=== PATIENT | male | born 1970 | race Caucasian/White ===

== ENCOUNTER 2018-08-07 09:54 | Inpatient (IN) ==
[2018-08-07] MEDS ORDERED: Bisacodyl 10 MG Supp RECTAL PRN (16:19)
[2018-08-07] MEDS ORDERED: Acetaminophen 325 MG Tablet PO PRN (16:19)
[2018-08-07] MEDS ORDERED: Sodium Phosphate Inj 30 MMOL in Sodium Chlor 0.9% Inj 250 ML IV.SIG PRN (16:32)
[2018-08-07] MEDS ORDERED: Magnesium Oxide 400 MG Tablet PO PRN (16:32)
[2018-08-07] MEDS ORDERED: Potassium Phosphate 500 MG Soluble Tablet PO PRN ×2 (16:32)
[2018-08-07] MEDS ORDERED: Potassium Chlor 40 mEq Premix 40 MEQ/100 ML PIGGYBACK IV.SIG PRN ×2 (16:32)
[2018-08-07] MEDS ORDERED: Potassium Phosphate Inj 30 MMOL in Sodium Chlor 0.9% Inj 250 ML IV.SIG PRN (16:32)
[2018-08-07] MEDS ORDERED: Magnesium Sulfate Inj 2 GM in Sodium Chlor 0.9% Inj 96 ML IV.SIG PRN (16:32)
[2018-08-07] MEDS ORDERED: Magnesium Sulfate Inj 4 GM in Sodium Chlor 0.9% Inj 92 ML IV.SIG PRN (16:32)
[2018-08-07 16:47] LABS: ABG Base Excess -4.4 mmol/L (-2-2); ABG PCO2 37 mmHg (38-42); ABG PO2 82 mmHG (61-120)
--- NOTE | 2018-08-07 17:26 | P.CONCC ---
History of Present Illness Service: ICU Consult date: 08/07/18 Requesting Physician: Jose David Green Reason for Consult: Hypertensive Urgency Primary Care Provider: No Primary Care Physician Chief Complaint: Nausea and Vomiting/ Blurry vision History of Present Illness: This is a 48-year-old male that presented to the [place] emergency center via EMS this morning with complaints of having diarrhea approximately 1 week ago. He woke up this morning with complaints of blurry vision and nausea and vomiting. Patient upon presentation stated that the onset was 4 hours prior to arrival which point he was diaphoretic with a systolic blood pressure in the 200s. a nicardipine infusion was initiated in the ED. The patient provided a history of being diagnosed a diabetic and previously on metformin but stopped 3 or 4 years ago stating the diabetes went away imaging studies were attempted to be performed the brain and abdomen however the patient refused. Per history from emergency room physician the patient has a history of noncompliance, and poorly controlled diabetes mellitus. laboratory studies were obtained showing a slight leukocytosis with a WBC count of 11.2 patient was empirically given vancomycin and Zosyn. Critical care medicine was consulted, and the patient was transferred to [facility]. Upon presentation the patient's blood pressure was noted to be 160/102 the patient was noted to be lethargic initially refusing to have imaging studies done secondary to claustrophobia but subsequently agreeing to stat imaging studies. Review of Systems All other systems reviewed negative except as stated in HPI PMFSH - History History Provided By: Patient - Medical History Medical History: Medical History (Last Reviewed 08/07/18 @ 17:08 by Yumiko Downey MD) Patient denies medical problems - Surgical History Surgical History: Surgical History (Last Updated 08/07/18 @ 17:08 by Yumiko Downey MD) No history of previous surgery (Acute) - Social History I have reviewed the patient's Social History: Yes - Tobacco History Second Hand Smoke Exposure: No Tobacco Use In Past 30 Days: No Smoking Status: Never smoker - Alcohol History How Often Do You Have a Drink Containing Alcohol: Never - Substance Use History Substance History: No History of Abuse - Travel History History of Recent Travel: No Recent Travel in the [facility] Within the Last 8 Weeks: No Medications and Allergies Active Medications: Active Medications Acetaminophen (Tylenol) 650 mg PO Q6H PRN PRN Reason: PAIN 1-10 AND/OR FEVER >101F Al Hydroxide/Mg Hydroxide (Milk Of Shruti French) 30 ml PO Q12H PRN PRN Reason: Mild Constipation Albuterol (Duoneb Neb (Prn)) 1 ampul NEB Q2HR NEB PRN PRN Reason: WHEEZING Bisacodyl (Dulcolax Supp) 10 mg RECTAL DAILY PRN PRN Reason: SEVERE CONSITIPATION Chlorhexidine Gluconate (Chlorhexidine 2% Cloth) 3 pack TOPICAL DAILY@0400 FABIOLA Stop: 08/13/18 03:59 Chlorhexidine Gluconate (Chlorhexidine 2% Cloth) 3 pack TOPICAL DAILY@0400 PRN PRN Reason: Extra cloth needed Stop: 08/13/18 03:59 Enoxaparin Sodium (Lovenox Inj) 30 mg SQ Q24H FABIOLA Famotidine (Pepcid Pf Inj) 20 mg IV.PUSH Q12HR FABIOLA Magnesium Sulfate 4 gm/ Sodium (Chloride) 100 mls @ 50 mls/hr IV.SIG UNSCH PRN PRN Reason: For Magnesium 0.9 - 1.1 mg/dL Magnesium Sulfate 2 gm/ Sodium (Chloride) 100 mls @ 50 mls/hr IV.SIG UNSCH PRN PRN Reason: For Magnesium 1.2 - 1.6 mg/dL Potassium Chloride (Kcl 40 Meq Premix Inj) 40 meq in 100 mls @ 25 mls/hr IV.SIG Q2H PRN PRN Reason: For Potassium 2.8 - 3.2 mEq/L Potassium Chloride (Kcl 20 Meq Premix Inj) 20 meq in 100 mls @ 50 mls/hr IV.SIG Q2H PRN PRN Reason: For Potassium 3.3 - 3.5 mEq/L Potassium Chloride (Kcl 40 Meq Premix Inj) 40 meq in 100 mls @ 25 mls/hr IV.SIG UNSCH PRN PRN Reason: For Potassium 3.3 - 3.5 mEq/L Potassium Chloride (Kcl 20 Meq Premix Inj) 20 meq in 100 mls @ 50 mls/hr IV.SIG Q2H PRN PRN Reason: For Potassium 2.8 - 3.2 mEq/L Potassium Phosphate 30 mmol/ (Sodium Chloride) 260 mls @ 42 mls/hr IV.SIG UNSCH PRN PRN Reason: SEE LABEL COMMENTS Sodium Phosphate 30 mmol/ (Sodium Chloride) 260 mls @ 42 mls/hr IV.SIG UNSCH PRN PRN Reason: For Phosphorus < 2.5 mg/dL Nicardipine HCl 25 mg/ Sodium (Chloride) 250 mls @ 50 mls/hr IV.CONT TITRATE FABIOLA; Protocol Lactulose (Lactulose Liq) 30 ml PO DAILY PRN PRN Reason: SEVERE CONSITIPATION Magnesium Oxide (Mag-Ox) 800 mg PO UNSCH PRN PRN Reason: For Magnesium 1.2 - 1.6 mg/dL Ondansetron HCl (Zofran Inj) 4 mg IV.PUSH Q6H PRN PRN Reason: NAUSEA OR VOMITING Potassium Bicarb/Potassium Chloride (K-Lyte Cl Eff) 50 meq PO UNSCH PRN PRN Reason: For Potassium 3.3 - 3.5 mEq/L Potassium Phosphate (K-Phos Original) 2,000 mg PO UNSCH PRN PRN Reason: SEE LABEL COMMENTS Potassium Phosphate (K-Phos Original) 2,000 mg PO Q4H PRN PRN Reason: Phosphorus Less Than 2.5 mg/dL Senna/Docusate Sodium (Sobeida-Colace) 1 tab PO BID FABIOAL Sennosides (Senokot) 17.2 mg PO Q12H PRN PRN Reason: Moderate Constipation Sodium Chloride (Ns Flush) 2 ml IV.FLUSH BID FABIOLA Sodium Chloride (Ns Flush) 2 ml IV.FLUSH PRN PRN PRN Reason: FLUSH AFTER USING IV ACCESS Allergies Allergy/AdvReac Type Severity Reaction Status Date / Time No Known Allergies Allergy Verified 08/07/18 09:59 Home Medications Medication Instructions Recorded Confirmed Type No Known Home Medications 08/07/18 08/07/18 History Physical Exam Vital signs: Intake & Output 08/06/18 08/07/18 08/07/18 18:59 06:59 18:59 Output Total 500 / 500 Balance -500 / -500 Weight 124.5 kg Output: Urine 500 / 500 Other: Weight On Admission 124.5 kg - Constitutional no acute distress, mild distress, obese - Routine HEENT Exam Head: Present: normocephalic, atraumatic Eye: Present: EOMI, PERRL, normal accommodation ENT: Present: mucous membranes dry, dentition normal, nares patent - Routine Neck Exam Present: supple, full ROM - Routine Cardiovascular Exam Present: RRR, S1, S2 - Routine Abdominal Exam Present: soft, normoactive bowel sounds - Routine Extremities Exam Present: full ROM - Routine Skin Exam Present: warm - Routine Neurological Exam Present: oriented X3, altered mental status (Lethargic), moving all extremities - Detailed Neurological Exam: Coma Scale Eye Opening: Spontaneous Verbal Response: Oriented Motor Response: Obey commands [place] Coma Scale Total: 15 - Routine Psychiatric Exam Present: unable to assess Assessment and Plan - Assessment and Plan Plan: Assessment: This is a 48-year-old male with a history of noncompliance presenting with lethargy nausea and vomiting concern for neurological changes possible increasing intracranial pressure, as well as intra-abdominal dysfunction refusing imaging. Patient's lethargy very concerning in the setting of nausea and vomiting and hypertensive urgency. Admit to ICU the patient is critically ill obtain imaging and laboratory studies. Plan by systems: Neurologic: Metabolic encephalopathy, metabolic? Altered mental status -Obtain stat CT of the brain -Ammonia level, TSH level -Urine tox screen negative Respiratory: -Obtain ABG, concern for CO2 narcosis -Duo nebs as needed -Supplement with nasal cannula O2 wean as tolerated to maintain O2 saturation 92 % -Avoid all sedative type medication -Neurochecks per ICU protocol Cardiovascular: Hypertensive urgency -Begin nicardipine infusion -Labetalol and hydralazine as needed -We will transition to p.o. antihypertensives when patient is able to consume p.o. -Monitor serial troponins. Initial troponin 0.02 Renal: Hypokalemia Replete per electrolyte protocol -- Strict I/Os FEN/GI: Diabetes mellitus Obesity Nausea and vomiting -Obtain beta hydroxybutyrate, check urine for ketones -Obtain CT of the abdomen without contrast -Obtain hemoglobin A1c -Obtain hepatic function panel -Maintain n.p.o. status -Zofran for nausea Heme/ID: Leukocytosis Sepsis Obtain blood and urine cultures Continue prophylactic coverage with Vanco and Zosyn, will de-escalate upon speciation Obtain urine strep pneumo, Legionella, and influenza A/B antigen Endocrine: Diabetes mellitus Obtain hemoglobin A1c -- SSI Prophylaxis: GI Prophylaxis Famotidine DVT Prophylaxis -- SCDs Will hold heparin until CT scan is obtained, to rule out bleed Lines: Peripheral IVs providing adequate access. Central line if indicated Dispo: My billing statement This patient remains critically ill with one or more organ systems which are or may become a threat to life. I have spent in excess of 54 minutes discontinuously in the care and management of this patient. This time is exclusive of procedures, and includes, but is not limited to, evaluation of the patient, review of the medical record, discussions with family, consultants, nursing staff, or respiratory therapy, and documentation in the medical record. Code Status: Full Discussed Condition With: Patient and BOBBIN COLLECTOR at bedside
[2018-08-07] MEDS ORDERED: Vancomycin Consult Pharmacy OTHER PRN (17:36)
[2018-08-07] MEDS ORDERED: Phenylephrine Inj 80 MG in Dextrose 5% in Water Inj 492 ML IV.CONT PRN ×2 (17:51)
--- NOTE | 2018-08-07 17:58 | CT ---
EXAM DATE: 08/07/2018 5:54 PM EST AGE/SEX: 48 years / Male INDICATIONS: Altered mental status. CLINICAL DATA: This is the patient's initial encounter. Patient reports that signs and symptoms have been present for 1 day and indicates a pain score of 0/10. MEDICAL/SURGICAL HISTORY: None. None. RADIATION DOSE: 61.88 CTDI (mGy) COMPARISON: None. TECHNIQUE: CT of the head without contrast. Using automated exposure control and adjustment of the mA and/or kV according to patient size, radiation dose was kept as low as reasonably achievable to ob tain optimal diagnostic quality images. DICOM format image data is available electronically for revi ew and comparison. FINDINGS: Cerebrum: The ventricles are normal for age. No evidence of midline shift, mass lesion, hemorrhage or acute infarction. There is a tiny old cortical infarct in right basal ganglia. There is a small ol d lacunar infarct in the left basal ganglia. No extraaxial fluid collections are seen. Posterior Fossa: The cerebellum and brainstem are intact. The 4th ventricle is midline. The cerebe llopontine angle is unremarkable. Extracranial: The visualized portion of the orbits is intact. Skull: The calvaria is intact. No evidence of skull fracture. CONCLUSION: 1. No focal or acute intracranial hemorrhage. 2. Bilateral old lacunar infarcts in the basal ganglia regions. . Electronically signed by: Roger Mcclure MD 08/07/2018 5:57 PM EST
[2018-08-07] MEDS ORDERED: Labetalol HCl Inj 100 MG/20 ML Vial IV.PUSH ONE (18:00)
[2018-08-07 18:04] LABS: Bilirubin,Urine Negative (Negative); Clarity,Urine Clear (Clear); Color,Urine Straw (Yellw/Straw); Glucose,Urine (UA) 500 or Greater mg/dL (Negative); Leukocyte Esterase,Urine Negative (Negative); Nitrite,Urine Negative (Negative); Specific Gravity,Urine 1.015 (1.002-1.035)
[2018-08-07] MEDS: Enoxaparin Inj 30 MG/0.3 ML Syringe SQ SCH (18:08)
[2018-08-07] MEDS: Piperacil/Tazo 3.375 GM Premix 50 ML IV.SIG SCH (18:08)
[2018-08-07] MEDS: niCARdipine Inj 25 MG in Sodium Chlor 0.9% Inj 240 ML IV.CONT SCH ×2 (18:08→22:00)
--- NOTE | 2018-08-07 18:08 | CT ---
EXAM DATE: 08/07/2018 6:00 PM EST AGE/SEX: 48 years / Male INDICATIONS: Nausea, vomiting and diarrhea today. CLINICAL DATA: This is the patient's initial encounter. Patient reports that signs and symptoms have been present for 1 day and indicates a pain score of 7/10. MEDICAL/SURGICAL HISTORY: None. None. RADIATION DOSE: 20.35 CTDI (mGy) ; Patient body habitus COMPARISON: No prior exams available for comparison. TECHNIQUE: Multiple contiguous axial images were obtained through the abdomen. Images were obtained using multiple row detector helical technique. Using automated exposure control and adjustment of the mA and/or kV according to patient size, radiation dose was kept as low as reasonably achievable to o btain optimal diagnostic quality images. DICOM format image data is available electronically for rev iew and comparison. FINDINGS: Lower Lungs: The visualized lower lungs are clear. Liver: The liver has a homogeneous fatty density without space-occupying lesion. There is no dilation of the biliary tree. Spleen: Homogeneous density without enlargement. Pancreas: Unremarkable without mass or calcification. Kidneys: Normal in size and shape. No evidence of mass or hydronephrosis. Adrenal Glands: Unremarkable. Aorta: The aorta and proximal iliac vessels are grossly unremarkable without aneurysmal dilation. Bowel/Mesentery: The bowel loops are grossly unremarkable. The cecum and sigmoid colon have a normal configuration. Abdominal Wall: Intact. Retroperitoneum: No evidence of adenopathy in the retrocrural, para-aortic, or deep pelvic regions. Bladder: Contours are smooth. Reproductive Organs: No abnormal masses or calcifications seen. Inguinal: The inguinal region is unremarkable without evidence of adenopathy. Bony Structures: No acute bony abnormality demonstrated. Chronic appearing pars defects seen on the right at L5. CONCLUSION: 1. Fatty liver. 2. 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 Otherwise negative noncontrast CT of the abdom en and pelvis. Electronically signed by: Chilango Hidalgo MD 08/07/2018 6:07 PM EST
[2018-08-07] MEDS: Sod Chloride 0.9% Inj 1,000 ML IV.CONT SCH (18:09)
--- NOTE | 2018-08-07 19:03 | ECG ---
Date Performed: 08/07/2018 Time Performed: 18:29:19 PTAGE: 48 years EKG: Sinus rhythm NONSPECIFIC T-WAVE ABNORMALITY BORDERLINE ECG No significant change from prior electrocardiogram. DOCTOR: Amari Tate Interpretating Date/Time 08/07/2018 19:03:08
[2018-08-07 20:14] LABS: Albumin 3.9 g/dL (3.4-5.0)
[2018-08-07 20:15] LABS: Amylase 36 U/L (25-115); Cholesterol 177 mg/dL (120-200); Lipase 167 U/L (73-393)
[2018-08-07 20:19] LABS: Beta Hydroxybutyric Acid 0.15 mmol/L (0.00-0.39); HDL Cholesterol 47.8 mg/dL (40.0-60.0); LDL Cholesterol,Calculated 119 mg/dL (0-99); Triglycerides 52 mg/dL (42-150)
[2018-08-07] MEDS: Famotidine PF Inj 20 MG/2 ML Vial IV.PUSH SCH (21:59)
[2018-08-07] MEDS: Senna/Docusate Sodium 8.6/50 MG Tablet PO SCH (21:59)
[2018-08-07] MEDS: Vancomycin Inj 1,750 MG in Sodium Chlor 0.9% Inj 500 ML IV.SIG SCH (21:59)
[2018-08-07 22:17] LABS: Hemoglobin A1c 8.2 % (4.3-6.0)
[2018-08-08] MEDS: Piperacil/Tazo 3.375 GM Premix 50 ML IV.SIG SCH ×5 (01:37→23:02)
[2018-08-08] MEDS: niCARdipine Inj 25 MG in Sodium Chlor 0.9% Inj 240 ML IV.CONT SCH ×3 (02:19→09:02)
[2018-08-08] MEDS ORDERED: Chlorhexidine Gluconate 2% 1 Pack (2 Cloths) TOPICAL PRN (04:00)
[2018-08-08 04:23] LABS: Baso % (Auto) 0.2 % (0.0-2.0); Eos % (Auto) 0.1 % (0.0-4.0); Hematocrit 44.4 % (39.0-51.0); Hemoglobin 15.1 gm/dL (13.0-17.0); Lymph # (Auto) 1.9 th/mm3 (1.0-4.8); Lymph % (Auto) 12.8 % (9.0-44.0); Mean Corpuscular HGB Conc 33.9 % (32.0-36.0); Mean Corpuscular Hemoglobin 29.4 pg (27.0-34.0); Mean Corpuscular Volume 86.6 fL (80.0-100.0); Mean Platelet Volume 9.7 fL (7.0-11.0); Mono # (Auto) 0.9 th/mm3 (0.0-0.9); Mono % (Auto) 6.4 % (0.0-8.0); Neut # (Auto) 11.9 th/mm3 (1.8-7.7); Neut % (Auto) 80.5 % (16.0-70.0); Platelet Count 218 th/mm3 (150-450); Red Blood Count 5.13 mil/mm3 (4.50-5.90); Red Cell Distribution Width 13.2 % (11.6-17.2); White Blood Count 14.7 th/mm3 (4.0-11.0)
[2018-08-08 04:30] LABS: INR 1.2 Ratio
[2018-08-08 04:51] LABS: Albumin 3.5 g/dL (3.4-5.0); Anion Gap 7 meq/L (5-15); Aspartate Aminotransferase 19 U/L (15-37); Blood Urea Nitrogen 13 mg/dL (7-18); Calcium 8.3 mg/dL (8.5-10.1); Chloride 110 meq/L (98-107); Glomerular Filtration Rate 87 mL/min (>89); Glucose,Random 156 mg/dL (74-106); Magnesium 1.9 mg/dL (1.5-2.5); Potassium 3.2 meq/L (3.5-5.1); Sodium 142 meq/L (136-145)
[2018-08-08 04:52] LABS: Alanine Aminotransferase 39 U/L (12-78)
[2018-08-08 04:54] LABS: Alkaline Phosphatase 65 U/L (45-117); Total Protein 7.2 g/dL (6.4-8.2)
[2018-08-08] MEDS: Sod Chloride 0.9% Inj 1,000 ML IV.CONT SCH ×2 (05:48→17:23)
[2018-08-08] MEDS: Chlorhexidine Gluconate 2% 1 Pack (2 Cloths) TOPICAL SCH (05:49)
[2018-08-08] MEDS: Potassium Chlor 20 mEq Premix 20 MEQ/100 ML PIGGYBACK IV.SIG PRN ×4 (06:03→13:55)
[2018-08-08] MEDS: Vancomycin Inj 1,750 MG in Sodium Chlor 0.9% Inj 500 ML IV.SIG SCH ×2 (07:51→21:15)
[2018-08-08] MEDS: Senna/Docusate Sodium 8.6/50 MG Tablet PO SCH ×2 (08:02→21:15)
[2018-08-08] MEDS: Famotidine PF Inj 20 MG/2 ML Vial IV.PUSH SCH ×2 (08:02→21:15)
[2018-08-08] MEDS ORDERED: Sodium Chlor 0.9% Inj 500 ML IV.SIG SCH (11:47)
[2018-08-08] MEDS ORDERED: Dextrose 50% in Water 50 ML Vial IV.PUSH PRN (12:01)
[2018-08-08] MEDS: Metoprolol Tartrate 25 MG Tablet PO SCH ×2 (12:13→21:15)
--- NOTE | 2018-08-08 12:17 | P.PNCC ---
Subjective Subjective Remarks/Hospital Course: 08/08: Afebrile. No acute events overnight. Resolution of nausea and vomiting. The patient continues on normal saline 100 cc, Hgb A1c elevated notably patient is diabetic noncompliant. The patient expresses an appetite carb controlled diabetic diet ordered. Blood glucose glucose levels ranging in the 140s-200. Sliding scale insulin every 4 hours added to medication regimen. Patient continues on nicardipine infusion Lopressor added to medication regimen with continue weaning of nicardipine. Objective Vital Signs / I&O: Vital Signs 08/07/18 17:07 08/07/18 17:30 08/07/18 17:32 Temperature 98.7 F Pulse Rate 116 H 103 H 105 H Respiratory Rate 21 23 23 Blood Pressure 164/97 H Pulse Oximetry 97 94 L 95 08/07/18 17:59 08/07/18 18:00 08/07/18 18:02 Temperature Pulse Rate 106 H Respiratory Rate Blood Pressure 182/110 H 185/108 H Pulse Oximetry 08/07/18 18:05 08/07/18 18:13 08/07/18 18:15 Temperature Pulse Rate 104 H 99 H 97 H Respiratory Rate 23 20 21 Blood Pressure 176/107 H 158/94 H 156/93 H Pulse Oximetry 95 93 L 92 L 08/07/18 18:30 08/07/18 18:45 08/07/18 19:00 Temperature Pulse Rate 98 H 100 H 104 H Respiratory Rate 22 21 19 Blood Pressure 151/86 H 147/86 H 157/98 H Pulse Oximetry 93 L 93 L 95 08/07/18 19:15 08/07/18 19:30 08/07/18 19:45 Temperature Pulse Rate 102 H 102 H 103 H Respiratory Rate 23 21 20 Blood Pressure 154/97 H 148/88 H 150/83 H Pulse Oximetry 92 L 92 L 93 L 08/07/18 20:00 08/07/18 20:15 08/07/18 20:30 Temperature 98.9 F Pulse Rate 104 H 104 H 106 H Respiratory Rate 20 20 17 Blood Pressure 159/81 H 152/81 H 154/81 H Pulse Oximetry 94 L 94 L 95 08/07/18 20:45 08/07/18 21:00 08/07/18 21:15 Temperature Pulse Rate 106 H 108 H 107 H Respiratory Rate 21 21 20 Blood Pressure 152/80 H 148/81 H 151/82 H Pulse Oximetry 94 L 94 L 92 L 08/07/18 21:30 08/07/18 21:45 08/07/18 22:00 Temperature Pulse Rate 110 H 110 H 109 H Respiratory Rate 19 20 20 Blood Pressure 169/93 H 175/93 H 172/85 H Pulse Oximetry 93 L 91 L 91 L 08/07/18 22:09 08/07/18 22:15 08/07/18 22:30 Temperature Pulse Rate 114 H 108 H 118 H Respiratory Rate 20 20 25 H Blood Pressure 171/92 H 165/80 H 171/86 H Pulse Oximetry 92 L 91 L 93 L 08/07/18 22:45 08/07/18 23:00 08/07/18 23:15 Temperature Pulse Rate 110 H 111 H 110 H Respiratory Rate 22 20 20 Blood Pressure 172/78 H 164/79 H 165/84 H Pulse Oximetry 91 L 93 L 90 L 08/07/18 23:30 08/07/18 23:45 08/08/18 00:00 Temperature 98.7 F Pulse Rate 107 H 105 H 109 H Respiratory Rate 19 21 22 Blood Pressure 154/76 H 149/78 H 146/73 H Pulse Oximetry 92 L 90 L 92 L 08/08/18 00:15 08/08/18 00:30 08/08/18 00:45 Temperature Pulse Rate 105 H 106 H 113 H Respiratory Rate 20 19 21 Blood Pressure 153/83 H 150/82 H 147/81 H Pulse Oximetry 89 L 93 L 95 08/08/18 01:00 08/08/18 01:15 08/08/18 01:30 Temperature Pulse Rate 108 H 109 H 107 H Respiratory Rate 18 22 18 Blood Pressure 126/74 145/77 H 145/75 H Pulse Oximetry 95 95 94 L 08/08/18 01:45 08/08/18 02:00 08/08/18 02:15 Temperature Pulse Rate 109 H 106 H 105 H Respiratory Rate 20 19 18 Blood Pressure 144/76 H 140/78 143/79 H Pulse Oximetry 93 L 94 L 94 L 08/08/18 02:30 08/08/18 02:45 08/08/18 03:00 Temperature Pulse Rate 105 H 110 H 110 H Respiratory Rate 18 20 22 Blood Pressure 144/76 H 154/78 H 157/78 H Pulse Oximetry 93 L 95 94 L 08/08/18 03:15 08/08/18 03:30 08/08/18 03:45 Temperature Pulse Rate 105 H 111 H 102 H Respiratory Rate 21 21 17 Blood Pressure 159/78 H 170/92 H 152/67 H Pulse Oximetry 93 L 96 93 L 08/08/18 04:00 08/08/18 04:30 08/08/18 04:45 Temperature 98.7 F Pulse Rate 105 H 103 H 105 H Respiratory Rate 20 17 19 Blood Pressure 136/79 143/79 H Pulse Oximetry 93 L 94 L 94 L 08/08/18 05:00 08/08/18 05:11 08/08/18 05:15 Temperature Pulse Rate 104 H 100 H Respiratory Rate 18 18 Blood Pressure 139/75 142/73 H Pulse Oximetry 94 L 97 95 08/08/18 05:30 08/08/18 05:45 08/08/18 06:00 Temperature Pulse Rate 99 H 96 H 101 H Respiratory Rate 17 16 17 Blood Pressure 140/75 145/74 H 135/72 Pulse Oximetry 95 95 92 L 08/08/18 06:15 08/08/18 06:30 08/08/18 06:45 Temperature Pulse Rate 100 H 98 H 107 H Respiratory Rate 17 16 19 Blood Pressure 143/73 H 139/73 125/73 Pulse Oximetry 91 L 92 L 93 L 08/08/18 07:00 08/08/18 07:15 08/08/18 07:30 Temperature Pulse Rate 102 H 103 H 101 H Respiratory Rate 17 19 17 Blood Pressure 148/81 H 136/76 144/76 H Pulse Oximetry 94 L 92 L 93 L 08/08/18 07:45 08/08/18 08:00 08/08/18 08:15 Temperature 98.3 F Pulse Rate 101 H 99 H 100 H Respiratory Rate 19 18 19 Blood Pressure 135/77 132/73 130/74 Pulse Oximetry 93 L 93 L 93 L 08/08/18 08:30 08/08/18 08:45 08/08/18 09:00 Temperature Pulse Rate 97 H 98 H 99 H Respiratory Rate 19 18 20 Blood Pressure 137/78 138/77 138/75 Pulse Oximetry 91 L 90 L 93 L 08/08/18 09:15 08/08/18 09:31 08/08/18 09:45 Temperature Pulse Rate 102 H 116 H 94 H Respiratory Rate 21 25 H 21 Blood Pressure 142/74 H 160/84 H 140/64 Pulse Oximetry 93 L 94 L 92 L 08/08/18 09:55 08/08/18 09:56 08/08/18 10:00 Temperature Pulse Rate 96 H 95 H 103 H Respiratory Rate 26 H 20 24 Blood Pressure 138/79 133/82 Pulse Oximetry 92 L 92 L 92 L 08/08/18 10:15 08/08/18 10:30 08/08/18 10:45 Temperature Pulse Rate 97 H 96 H 94 H Respiratory Rate 20 24 29 H Blood Pressure 139/80 133/77 133/78 Pulse Oximetry 92 L 92 L 92 L 08/08/18 11:00 Temperature Pulse Rate 111 H Respiratory Rate 28 H Blood Pressure 140/81 Pulse Oximetry 91 L Intake & Output 08/07/18 08/08/18 08/08/18 18:59 06:59 18:59 Intake Total 2417.5 / 2417.5 967.5 / 967.5 Output Total 1100 / 1100 1550 / 1550 750 / 750 Balance -1100 / -1100 867.5 / 867.5 217.5 / 217.5 Weight 124.5 kg 124.3 kg Intake: IV 2417.5 / 2417.5 967.5 / 967.5 NS Inj 1,000 ML @ 100 mls/hr IV 1000 / 1000 .CONT .Q10H FABIOLA Rx#:[id number] Cardene Inj 25 MG In NS Inj 240 750 / 750 250 / 250 ML @ 5 MG/HR 50 mls/hr IV.CONT TITRATE FABIOLA Rx#:[id number] Zosyn 3.375 GM Premix 50 ML @ 150 / 150 100 mls/hr IV.SIG Q6H FABIOLA Rx#: [id number] KCl 20 mEq Premix Inj 20 meq In 200 / 200 100 ml @ 50 mls/hr IV.SIG Q2H PRN Rx#:[id number] Vancomycin Inj 1,750 MG In NS 517.5 / 517.5 517.5 / 517.5 Inj 500 ML @ 250 mls/hr IV.SIG Q12H FABIOLA Rx#:[id number] Output: Urine 1000 / 1000 1550 / 1550 750 / 750 Emesis 100 / 100 0 / 0 Other: Weight On Admission 124.5 kg Result Diagrams: 08/08/18 04:03 08/08/18 04:03 Other Results: Laboratory Results WBC 14.7 th/mm3 (4.0-11.0) H 08/08/18 04:03 RBC 5.13 mil/mm3 (4.50-5.90) 08/08/18 04:03 Hgb 15.1 gm/dL (13.0-17.0) D 08/08/18 04:03 Hct 44.4 % (39.0-51.0) 08/08/18 04:03 MCV 86.6 fL (80.0-100.0) 08/08/18 04:03 MCH 29.4 pg (27.0-34.0) 08/08/18 04:03 MCHC 33.9 % (32.0-36.0) 08/08/18 04:03 RDW 13.2 % (11.6-17.2) 08/08/18 04:03 Plt Count 218 th/mm3 (150-450) 08/08/18 04:03 MPV 9.7 fL (7.0-11.0) 08/08/18 04:03 Neut % (Auto) 80.5 % (16.0-70.0) H 08/08/18 04:03 Lymph % (Auto) 12.8 % (9.0-44.0) 08/08/18 04:03 Bullitt % (Auto) 6.4 % (0.0-8.0) 08/08/18 04:03 Eos % (Auto) 0.1 % (0.0-4.0) 08/08/18 04:03 Baso % (Auto) 0.2 % (0.0-2.0) 08/08/18 04:03 Neut # (Auto) 11.9 th/mm3 (1.8-7.7) H 08/08/18 04:03 Lymph # (Auto) 1.9 th/mm3 (1.0-4.8) 08/08/18 04:03 Bullitt # (Auto) 0.9 th/mm3 (0.0-0.9) 08/08/18 04:03 Eos # (Auto) 0.0 th/mm3 (0.0-0.4) 08/08/18 04:03 Baso # (Auto) 0.0 th/mm3 (0.0-0.2) 08/08/18 04:03 WBC Differential . 08/08/18 04:03 Differential Comment Auto diff final 08/08/18 04:03 PT 12.0 sec (9.8-11.6) H 08/08/18 04:03 INR 1.2 Ratio 08/08/18 04:03 Puncture Site Right radial 08/07/18 16:40 Patient Temperature 98.6 08/07/18 16:40 O2 Saturation 94 % (90-100) 08/07/18 16:40 ABG pH 7.36 (7.380-7.420) L 08/07/18 16:40 ABG pCO2 37 mmHg (38-42) L 08/07/18 16:40 ABG pO2 82 mmHG (61-120) 08/07/18 16:40 ABG HCO3 20 mmol/L (22-26) L 08/07/18 16:40 ABG O2 Content 21.8 Vol % (12.0-20.0) H 08/07/18 16:40 ABG Base Excess -4.4 mmol/L (-2-2) L 08/07/18 16:40 ABG Methemoglobin 1.5 % (0-2) 08/07/18 16:40 Gabriel Test Present 08/07/18 16:40 Hemoglobin 16.4 G/DL (12.0-16.0) H 08/07/18 16:40 Carboxyhemoglobin 0.5 % (0-4) 08/07/18 16:40 O2 Delivery Device Nasal cannula 08/07/18 16:40 Liter Flow 2.00 L/M 08/07/18 16:40 Critical Value No 08/07/18 16:40 Sodium 142 meq/L (136-145) 08/08/18 04:03 Potassium 3.2 meq/L (3.5-5.1) L 08/08/18 04:03 Chloride 110 meq/L (98-107) H 08/08/18 04:03 Carbon Dioxide 25.0 meq/L (21.0-32.0) 08/08/18 04:03 Anion Gap 7 meq/L (5-15) 08/08/18 04:03 BUN 13 mg/dL (7-18) 08/08/18 04:03 Creatinine 0.93 mg/dL (0.60-1.30) 08/08/18 04:03 Estimated GFR 87 mL/min (>89) L 08/08/18 04:03 POC Glucose 147 mg/dl (68-110) H 08/08/18 11:07 Random Glucose 156 mg/dL (74-106) H D 08/08/18 04:03 Hemoglobin A1c 8.2 % (4.3-6.0) H 08/07/18 19:38 Lactic Acid 1.1 mmol/L (0.4-2.0) 08/08/18 04:03 Calcium 8.3 mg/dL (8.5-10.1) L 08/08/18 04:03 Phosphorus 3.0 mg/dL (2.5-4.9) 08/08/18 04:03 Magnesium 1.9 mg/dL (1.5-2.5) 08/08/18 04:03 Total Bilirubin 0.8 mg/dL (0.2-1.0) 08/08/18 04:03 Direct Bilirubin 0.3 mg/dL (0.0-0.2) H 08/07/18 19:38 Indirect Bilirubin 0.5 mg/dL (0.0-0.8) 08/07/18 19:38 AST 19 U/L (15-37) 08/08/18 04:03 ALT 39 U/L (12-78) 08/08/18 04:03 Alkaline Phosphatase 65 U/L (45-117) 08/08/18 04:03 Ammonia 29 mcmol/L (11-32) 08/07/18 19:38 Troponin I Less than 0.02 ng/mL (0.02-0.05) L 08/08/18 02:02 Total Protein 7.2 g/dL (6.4-8.2) D 08/08/18 04:03 Albumin 3.5 g/dL (3.4-5.0) 08/08/18 04:03 Triglycerides 52 mg/dL (42-150) 08/07/18 19:38 Cholesterol 177 mg/dL (120-200) 08/07/18 19:38 LDL Cholesterol, Calc 119 mg/dL (0-99) H 08/07/18 19:38 HDL Cholesterol 47.8 mg/dL (40.0-60.0) 08/07/18 19:38 Cholesterol/HDL Ratio 3.70 Ratio 08/07/18 19:38 Amylase 36 U/L (25-115) 08/07/18 19:38 Lipase 167 U/L (73-393) 08/07/18 19:38 Beta-Hydroxybutyric Acd 0.15 mmol/L (0.00-0.39) 08/07/18 19:38 TSH 0.552 uIU/mL (0.358-3.740) 08/07/18 19:38 Cortisol 50.8 mcg/dL 08/07/18 21:15 Urine Color Straw (Yellw/Straw) 08/07/18 17:10 Urine Clarity Clear (Clear) 08/07/18 17:10 Urine pH 5.0 (5.0-8.5) 08/07/18 17:10 Ur Specific [place] 1.015 (1.002-1.035) 08/07/18 17:10 Urine Protein Negative mg/dL (Neg-Trace) 08/07/18 17:10 Urine Glucose (UA) 500 or greater mg/dL (Negative) 08/07/18 17:10 Urine Ketones 20 mg/dL (Negative) 08/07/18 17:10 Urine Occult Blood Negative (Negative) 08/07/18 17:10 Urine Nitrate Negative (Negative) 08/07/18 17:10 Urine Bilirubin Negative (Negative) 08/07/18 17:10 Urine Urobilinogen Less than 2 mg/dL (Less than 2) 08/07/18 17:10 Ur Leukocyte Esterase Negative (Negative) 08/07/18 17:10 Urine RBC Less than 1 /hpf (0-3) 08/07/18 17:10 Urine WBC Less than 1 /hpf (0-5) 08/07/18 17:10 Micro UA Comment Cath-culture not ind 08/07/18 17:10 Ur Microscopic Review Not Reportable 08/07/18 17:10 Urine Culture Comments Cath-cult not ind 08/07/18 17:10 Nasal Screen MRSA (PCR) Not detected (Negative) 08/07/18 16:20 Legionella Source Cancelled 08/07/18 17:10 L. pneumophila DFA Cancelled 08/07/18 17:10 Impressions Abdomen/Pelvis CT 08/07/18 00:00 CONCLUSION: 1. Fatty liver. 2. 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 Otherwise negative noncontrast CT of the abdomen and pelvis. Head CT 08/07/18 16:49 CONCLUSION: 1. No focal or acute intracranial hemorrhage. 2. Bilateral old lacunar infarcts in the basal ganglia regions. . Objective Remarks: GENERAL: This is obese male patient of stated age, in no acute distress SKIN: Warm and dry. HEAD: Atraumatic. Normocephalic. EYES: Pupils equal and round. No scleral icterus. No injection or drainage. ENT: No nasal bleeding or discharge. Mucous membranes pink and moist. NECK: Trachea midline. No JVD. CARDIOVASCULAR: Normal rate, regular rhythm. RESPIRATORY: No accessory muscle use. Clear to auscultation. Breath sounds equal bilaterally. GASTROINTESTINAL: Abdomen soft, non-tender, obese ,nondistended. No guarding. MUSCULOSKELETAL: Extremities without clubbing, cyanosis, or edema. No obvious deformities. NEUROLOGICAL: Awake and alert. RASS 0. No gross focal/sensory deficits. Follows commands in all 4 extremities. Assessment and Plan - Assessment and Plan Plan: Assessment: This is a 48-year-old male with a history of noncompliance presenting with lethargy nausea and vomiting concern for neurological changes possible increasing intracranial pressure, as well as intra-abdominal dysfunction refusing imaging. Patient's lethargy very concerning in the setting of nausea and vomiting and hypertensive urgency. Admit to ICU the patient is critically ill obtain imaging and laboratory studies. Plan by systems: Neurologic: Metabolic encephalopathy, metabolic? Altered mental status -Obtain stat CT of the brain -Ammonia level, TSH level -Urine tox screen negative Respiratory: -Obtain ABG, concern for CO2 narcosis -Duo nebs as needed -Supplement with nasal cannula O2 wean as tolerated to maintain O2 saturation 92 % -Avoid all sedative type medication -Neurochecks per ICU protocol Cardiovascular: Hypertensive urgency -Begin Lopressor 25 mg twice daily, wean off nicardipine infusion -Labetalol and hydralazine as needed -Monitor serial troponins negative Renal: Hypokalemia Replete per electrolyte protocol -- Strict I/Os FEN/GI: Diabetes mellitus Obesity Nausea and vomiting-resolved Ketonuria -Continue IV hydration normal saline at 100 cc/hr -Obtain CT of the abdomen without contrast - hemoglobin A1c- 8.2 -Obtain hepatic function panel -Begin carb controlled diabetic diet -Zofran for nausea Heme/ID: Leukocytosis Sepsis Obtain blood and urine cultures Continue prophylactic coverage with Vanco and Zosyn, will de-escalate upon speciation Obtain urine strep pneumo, Legionella, and influenza A/B antigen Endocrine: Diabetes mellitus Obtain hemoglobin A1c -- SSI Prophylaxis: GI Prophylaxis Famotidine DVT Prophylaxis -- SCDs Initiate heparin 5000 units twice daily PT evaluation and treatment Lines: Peripheral IVs providing adequate access. Central line if indicated Dispo: Level 2 follow-up. With continued improvement plan transfer to [facility] in the a.m. 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
[2018-08-08 12:46] LABS: Folate 8.4 ng/mL (3.1-17.5); Thyroid Stimulating Hormone 0.487 uIU/mL (0.358-3.740)
[2018-08-08] MEDS: Enoxaparin Inj 30 MG/0.3 ML Syringe SQ SCH (17:23)
[2018-08-08] MEDS: Insulin NovoLOG Aspart Correctional Sugar Inj SQ SCH ×2 (17:27→21:15)
--- NOTE | 2018-08-08 18:27 | ECHRPT ---
Indication: HTN heart disease CONCLUSIONS The left ventricular systolic function is normal with an estimated ejection fraction in the range of 55-60%. Mild concentric left ventricular hypertrophy. There was limited left ventricular wall motion assessment due to poor endocardial visualization. Left ventricular diastolic function parameters are normal. Ulktj-ft-[id number] mitral valve regurgitation. There is mild tricuspid valve regurgitation. BP: / HR: Rhythm: MEASUREMENTS (Male / Female) Normal Values Technical Quality: 2D ECHO LV Diastolic Diameter PLAX 5.2 cm 4.2 - 5.9 / 3.9 - 5.3 cm LV Systolic Diameter PLAX 3.8 cm IVS Diastolic Thickness 1.4 cm 0.6 - 1.0 / 0.6 - 0.9 cm LVPW Diastolic Thickness 1.4 cm 0.6 - 1.0 / 0.6 - 0.9 cm LV Relative Wall Thickness 0.5 RV Internal Dim ED PLAX 2.9 cm LVOT Diameter 2.3 cm Aortic Root Diameter 3.6 cm LA Systolic Diameter LX 4.7 cm 3.0 - 4.0 / 2.7 - 3.8 cm LV Ejection Fraction MOD 4C 49.5 % LV Ejection Fraction 4C AL 51.4 % LV Ejection Fraction MOD 2C 49.5 % LV Ejection Fraction 2C AL 50.5 % M-MODE Aortic Root Diameter MM 4.1 cm LA Systolic Diameter MM 4.8 cm LA Ao Ratio MM 1.2 AV Cusp Separation MM 2.6 cm DOPPLER AV Peak Velocity 160.0 cm/s AV Peak Gradient 10.2 mmHg LVOT Peak Velocity 125.0 cm/s LVOT Peak Gradient 6.3 mmHg AV Area Cont Eq pk 3.2 cm Mitral E Point Velocity 91.8 cm/s Mitral A Point Velocity 92.3 cm/s Mitral E to A Ratio 1.0 LV E' Lateral Velocity 12.8 cm/s Mitral E to LV E' Lateral Ratio 7.2 LV E' Septal Velocity 10.6 cm/s Mitral E to LV E' Septal Ratio 8.7 TR Peak Velocity 286.0 cm/s TR Peak Gradient 32.7 mmHg Right Atrial Pressure 10.0 mmHg Pulmonary Artery Systolic Pressu 42.7 mmHg Right Ventricular Systolic Press 42.7 mmHg PV Peak Velocity 178.0 cm/s PV Peak Gradient 12.7 mmHg FINDINGS LEFT VENTRICLE Normal left ventricular size. Mild concentric left ventricular hypertrophy. The left ventricular systolic function is normal with an estimated ejection fraction in the range of 55-60%. There was limited left ventricular wall motion assessment due to poor endocardial visualization. Left ventricular diastolic function parameters are normal. RIGHT VENTRICLE Grossly normal LEFT ATRIUM The left atrial size is mildly dilated. RIGHT ATRIUM The right atrial size is normal. ATRIAL SEPTUM Normal atrial septal thickness AORTA The aortic root and proximal ascending aorta are normal in size on limited imaging. MITRAL VALVE Structurally normal mitral valve. No mitral valve stenosis. Obmsy-ma-cybs mitral valve regurgitation. AORTIC VALVE The aortic valve is not well visualized. No aortic valve regurgitation. No aortic valve stenosis. TRICUSPID VALVE Grossly normal There is mild tricuspid valve regurgitation. No tricuspid valve stenosis. The estimated pulmonary arterial pressure is 43 mmHg. PULMONARY VALVE No pulmonary valve regurgitation or stenosis. VESSELS The inferior vena cava is normal in size. PERICARDIUM No pericardial effusion. Dennys Acosta DO (Electronically Signed) Final Date:08 August 2018 18:25
[2018-08-09] MEDS: Sod Chloride 0.9% Inj 1,000 ML IV.CONT SCH ×3 (03:45→20:02)
[2018-08-09] MEDS: Chlorhexidine Gluconate 2% 1 Pack (2 Cloths) TOPICAL SCH (03:45)
[2018-08-09] MEDS: Insulin NovoLOG Aspart Correctional Sugar Inj SQ SCH ×5 (03:45→21:35)
[2018-08-09] MEDS: Piperacil/Tazo 3.375 GM Premix 50 ML IV.SIG SCH ×3 (05:34→17:45)
--- NOTE | 2018-08-09 06:13 | XR ---
EXAM DATE: 08/09/2018 5:58 AM EST AGE/SEX: 48 years / Male INDICATIONS: Shortness of breath. CLINICAL DATA: This is the patient's subsequent encounter. Patient reports that signs and symptoms h ave been present for 3 days and indicates a pain score of Nonresponsive. MEDICAL/SURGICAL HISTORY: Diabetes. None. COMPARISON: [facility], CHEST 1V SINGLE AP, 08/07/2018. . FINDINGS: A single AP view of the chest demonstrates the lungs to be symmetrically aerated without evidence of mass, infiltrate or effusion. Lungs are hypoinflated bilaterally with resulting bronchovascular crowd ing. The cardiomediastinal contours are unremarkable. Osseous structures are intact. CONCLUSION: Hypoinflation. Clear lungs. Electronically signed by: Abdiel Malagon MD 08/09/2018 6:12 AM EST
[2018-08-09 06:14] LABS: Hematocrit 43.5 % (39.0-51.0); Hemoglobin 14.9 gm/dL (13.0-17.0); Mean Corpuscular HGB Conc 34.3 % (32.0-36.0); Mean Corpuscular Hemoglobin 30.1 pg (27.0-34.0); Mean Corpuscular Volume 87.6 fL (80.0-100.0); Mean Platelet Volume 9.5 fL (7.0-11.0); Platelet Count 216 th/mm3 (150-450); Red Blood Count 4.97 mil/mm3 (4.50-5.90); Red Cell Distribution Width 13.5 % (11.6-17.2); White Blood Count 12.5 th/mm3 (4.0-11.0)
[2018-08-09 06:28] LABS: Albumin 3.6 g/dL (3.4-5.0); Anion Gap 9 meq/L (5-15); Aspartate Aminotransferase 14 U/L (15-37); Blood Urea Nitrogen 11 mg/dL (7-18); Calcium 8.2 mg/dL (8.5-10.1); Carbon Dioxide 25.4 meq/L (21.0-32.0); Chloride 106 meq/L (98-107); Glomerular Filtration Rate 80 mL/min (>89); Glucose,Random 126 mg/dL (74-106); Magnesium 1.9 mg/dL (1.5-2.5); Potassium 3.3 meq/L (3.5-5.1); Sodium 140 meq/L (136-145)
[2018-08-09 06:30] LABS: Alanine Aminotransferase 32 U/L (12-78); Alkaline Phosphatase 66 U/L (45-117); Phosphorus 2.6 mg/dL (2.5-4.9); Total Protein 7.7 g/dL (6.4-8.2)
[2018-08-09] MEDS: hydrALAZINE HCl Inj 20 MG/ML Vial IV.PUSH PRN ×2 (07:23→13:58)
[2018-08-09] MEDS ORDERED: Pharmacy Ordered Lab Info OTHER ONE (07:45)
[2018-08-09] MEDS: Metoprolol Tartrate 25 MG Tablet PO SCH ×2 (08:43→21:14)
[2018-08-09] MEDS: Senna/Docusate Sodium 8.6/50 MG Tablet PO SCH ×2 (08:43→21:21)
[2018-08-09] MEDS: Famotidine PF Inj 20 MG/2 ML Vial IV.PUSH SCH ×2 (08:43→21:21)
[2018-08-09] MEDS ORDERED: Lisinopril 5 MG Tablet PO SCH (09:45)
[2018-08-09] MEDS: Vancomycin Inj 1,750 MG in Sodium Chlor 0.9% Inj 500 ML IV.SIG SCH (09:56)
[2018-08-09] MEDS: Potassium Chloride 25 MEQ Effervescent Tablet PO PRN (10:00)
[2018-08-09 12:19] LABS: ABG Base Excess 2.5 mmol/L (-2-2); ABG PCO2 37 mmHg (38-42); ABG PO2 87 mmHG (61-120)
--- NOTE | 2018-08-09 13:32 | CT ---
EXAM DATE: 08/09/2018 1:06 PM EST AGE/SEX: 48 years / Male INDICATIONS: Slurred speech CLINICAL DATA: This is the patient's initial encounter. Patient reports that signs and symptoms have been present for 1 day and indicates a pain score of 0/10. MEDICAL/SURGICAL HISTORY: None. None. RADIATION DOSE: 47.46 CTDI (mGy) COMPARISON: [facility], CT HEAD W/O CONTRAST, 08/07/2018. . TECHNIQUE: CT of the head without contrast. Using automated exposure control and adjustment of the mA and/or kV according to patient size, radiation dose was kept as low as reasonably achievable to ob tain optimal diagnostic quality images. DICOM format image data is available electronically for revi ew and comparison. FINDINGS: Cerebrum: The ventricles are normal. There is a stable focal low density in the left frontal periven tricular white matter and adjacent to the right caudate. No midline shift, mass lesion, hemorrhage or acute infarction. No extraaxial fluid collections are seen. Posterior Fossa: The cerebellum and brainstem demonstrate no acute abnormality. The 4th ventricle is midline. The cerebellopontine angle is within normal limits. Extracranial: The visualized sinuses are clear. Skull: The calvaria is intact. No skull fracture. CONCLUSION: 1. Stable noncontrast head CT. No acute intracranial abnormality is identified. 2. Stable areas of low density in the periventricular regions bilaterally which could represent atel ectasis. . Electronically signed by: Chilango Stack MD 08/09/2018 1:31 PM EST
--- NOTE | 2018-08-09 14:41 | P.PN ---
Subjective Interval history: F/up encephalopathy, uncontrolled diabetes Patient is more awake and alert however he is noted with slurred speech. He does not have any motor deficit or sensory deficit. No change in vision. Nausea resolved he is able to eat and able to swallow. No fever or chills. No cough. Patient is anxious on and off. Patient he says he has a history of diabetes however he is not taking medications. Advised compliance with medications and dietary changes. Patient was counseled at length Physical Exam Vital signs: Vital Signs 08/08/18 14:45 08/08/18 15:00 08/08/18 15:15 Temperature Pulse Rate 75 94 H 74 Respiratory Rate 19 40 H 20 Blood Pressure 141/85 H 143/84 H 135/82 Pulse Oximetry 94 L 94 L 94 L 08/08/18 15:30 08/08/18 15:45 08/08/18 16:00 Temperature 98.2 F Pulse Rate 76 77 78 Respiratory Rate 26 H 24 23 Blood Pressure 138/85 137/84 133/85 Pulse Oximetry 96 95 97 08/08/18 16:15 08/08/18 16:30 08/08/18 16:45 Temperature Pulse Rate 73 70 74 Respiratory Rate 19 17 18 Blood Pressure 139/84 135/84 141/85 H Pulse Oximetry 97 95 95 08/08/18 17:00 08/08/18 17:15 08/08/18 17:30 Temperature Pulse Rate 71 71 72 Respiratory Rate 19 17 19 Blood Pressure 132/85 143/86 H 135/82 Pulse Oximetry 94 L 95 97 08/08/18 17:45 08/08/18 18:00 08/08/18 18:15 Temperature Pulse Rate 75 71 82 Respiratory Rate 18 19 22 Blood Pressure 133/84 138/87 124/79 Pulse Oximetry 98 96 94 L 08/08/18 18:30 08/08/18 18:45 08/08/18 19:00 Temperature Pulse Rate 72 70 90 Respiratory Rate 17 17 21 Blood Pressure 139/85 142/87 H 138/86 Pulse Oximetry 96 94 L 96 08/08/18 19:15 08/08/18 19:30 08/08/18 19:40 Temperature Pulse Rate 70 72 Respiratory Rate 19 16 Blood Pressure 143/87 H 127/63 Pulse Oximetry 95 97 94 L 08/08/18 19:45 12/04/18 20:00 08/08/18 20:15 Temperature 98.1 F Pulse Rate 71 97 H 75 Respiratory Rate 18 30 H 19 Blood Pressure 140/83 146/89 H 146/76 H Pulse Oximetry 94 L 96 96 08/08/18 20:30 08/08/18 20:45 08/08/18 21:00 Temperature Pulse Rate 74 72 77 Respiratory Rate 19 19 23 Blood Pressure 150/84 H 144/87 H 144/89 H Pulse Oximetry 94 L 95 97 08/08/18 21:15 08/08/18 21:30 08/08/18 21:45 Temperature Pulse Rate 69 68 70 Respiratory Rate 18 16 18 Blood Pressure 153/95 H 150/92 H 147/96 H Pulse Oximetry 94 L 92 L 92 L 08/08/18 22:00 08/08/18 22:18 08/08/18 22:30 Temperature Pulse Rate 74 75 67 Respiratory Rate 18 15 18 Blood Pressure 148/94 H 140/83 138/86 Pulse Oximetry 93 L 94 L 93 L 08/08/18 22:45 08/08/18 23:00 08/08/18 23:15 Temperature Pulse Rate 65 67 81 Respiratory Rate 17 16 26 H Blood Pressure 146/88 H 140/88 147/94 H Pulse Oximetry 94 L 94 L 95 08/08/18 23:30 08/08/18 23:45 08/09/18 00:00 Temperature 98.9 F Pulse Rate 71 76 77 Respiratory Rate 16 21 20 Blood Pressure 131/81 138/79 138/83 Pulse Oximetry 95 95 94 L 08/09/18 00:15 08/09/18 00:30 08/09/18 00:45 Temperature Pulse Rate 79 74 63 Respiratory Rate 20 18 16 Blood Pressure 137/84 136/83 142/85 H Pulse Oximetry 93 L 96 94 L 08/09/18 01:00 08/09/18 01:01 08/09/18 01:12 Temperature Pulse Rate 71 69 Respiratory Rate 18 16 Blood Pressure 139/87 Pulse Oximetry 94 L 97 96 08/09/18 01:15 08/09/18 01:30 08/09/18 01:46 Temperature Pulse Rate 70 64 92 H Respiratory Rate 16 16 41 H Blood Pressure 138/88 150/90 H 169/110 H Pulse Oximetry 92 L 94 L 96 08/09/18 01:51 08/09/18 02:00 08/09/18 02:15 Temperature Pulse Rate 76 71 68 Respiratory Rate 20 18 16 Blood Pressure 167/106 H 155/88 H 153/94 H Pulse Oximetry 94 L 94 L 94 L 08/09/18 02:30 08/09/18 02:45 08/09/18 03:00 Temperature Pulse Rate 74 80 70 Respiratory Rate 19 18 16 Blood Pressure 176/96 H 172/94 H 146/89 H Pulse Oximetry 96 97 95 08/09/18 03:15 08/09/18 03:30 08/09/18 03:45 Temperature Pulse Rate 67 69 77 Respiratory Rate 17 16 18 Blood Pressure 158/91 H 155/92 H 156/98 H Pulse Oximetry 95 95 92 L 08/09/18 04:00 08/09/18 04:15 08/09/18 04:30 Temperature 98.4 F Pulse Rate 88 72 75 Respiratory Rate 23 18 10 L Blood Pressure 148/91 H 141/84 H 150/95 H Pulse Oximetry 94 L 94 L 93 L 08/09/18 04:45 08/09/18 05:00 08/09/18 05:21 Temperature Pulse Rate 76 76 71 Respiratory Rate 37 H 18 20 Blood Pressure 161/96 H 156/98 H 181/94 H Pulse Oximetry 95 95 93 L 08/09/18 05:30 08/09/18 05:45 08/09/18 06:00 Temperature Pulse Rate 72 69 69 Respiratory Rate 18 17 16 Blood Pressure 179/97 H 171/96 H 163/96 H Pulse Oximetry 91 L 92 L 93 L 08/09/18 08:00 08/09/18 09:11 Temperature Pulse Rate 91 H Respiratory Rate Blood Pressure Pulse Oximetry 93 L Intake & Output 08/08/18 08/09/18 08/09/18 18:59 06:59 18:59 Intake Total 2117.5 / 2117.5 3477.5 / 3477.5 195 / 195 Output Total 1575 / 1575 1400 / 1400 1300 / 1300 Balance 542.5 / 542.5 2077.5 / 2077.5 -1105 / -1105 Weight 125 kg Intake: IV 2117.5 / 2117.5 2517.5 / 2517.5 NS Inj 1,000 ML @ 100 mls/hr IV 1000 / 1000 1000 / 1000 .CONT .Q10H [facility] Rx#:[id number] Cardene Inj 25 MG In NS Inj 240 250 / 250 250 / 250 ML @ 5 MG/HR 50 mls/hr IV.CONT TITRATE [facility] Rx#:[id number] Zosyn 3.375 GM Premix 50 ML @ 50 / 50 150 / 150 100 mls/hr IV.SIG Q6H F[facility]A Rx#: [id number] KCl 20 mEq Premix Inj 20 meq In 300 / 300 100 / 100 100 ml @ 50 mls/hr IV.SIG Q2H PRN Rx#:[id number] NS Inj 500 ML @ 1000 mls/hr IV. 500 / 500 SIG BOLUS [facility] Rx#:[id number] Vancomycin Inj 1,750 MG In NS 517.5 / 517.5 517.5 / 517.5 Inj 500 ML @ 250 mls/hr IV.SIG Q12H [facility] Rx#:[id number] Oral 960 / 960 195 / 195 Output: Urine 1575 / 1575 1400 / 1400 1300 / 1300 Emesis 0 / 0 Other: # Voids 1 Narrative: GENERAL: This is obese male patient, anxious CARDIOVASCULAR: Normal rate, regular rhythm. RESPIRATORY: No accessory muscle use. Clear to auscultation. Breath sounds equal bilaterally. GASTROINTESTINAL: Abdomen soft, obese, non-tender, nondistended. No guarding. MUSCULOSKELETAL: Extremities without clubbing, cyanosis, or edema. No obvious deformities. NEUROLOGICAL: Awake and alert. slurred speech. Follows commands in all 4 extremities. Results - Labs CBC & Chem 7: 08/09/18 05:24 08/09/18 05:24 Laboratory Results - last 24 hr 08/08/18 08/08/18 08/09/18 17:27 20:05 03:43 WBC RBC Hgb Hct MCV MCH MCHC RDW Plt Count MPV Puncture Site Patient Temperature O2 Saturation ABG pH ABG pCO2 ABG pO2 ABG HCO3 ABG O2 Content ABG Base Excess ABG Methemoglobin Gabriel Test Hemoglobin Carboxyhemoglobin O2 Delivery Device Liter Flow Critical Value Sodium Potassium Chloride Carbon Dioxide Anion Gap BUN Creatinine Estimated GFR POC Glucose 120 H 115 H 104 Random Glucose Calcium Phosphorus Magnesium Total Bilirubin AST ALT Alkaline Phosphatase Ammonia Total Protein Albumin Vancomycin Trough 08/09/18 08/09/18 08/09/18 05:24 05:24 05:24 WBC 12.5 H RBC 4.97 Hgb 14.9 Hct 43.5 MCV 87.6 MCH 30.1 MCHC 34.3 RDW 13.5 Plt Count 216 MPV 9.5 Puncture Site Patient Temperature O2 Saturation ABG pH ABG pCO2 ABG pO2 ABG HCO3 ABG O2 Content ABG Base Excess ABG Methemoglobin Gabriel Test Hemoglobin Carboxyhemoglobin O2 Delivery Device Liter Flow Critical Value Sodium 140 Potassium 3.3 L Chloride 106 Carbon Dioxide 25.4 Anion Gap 9 BUN 11 Creatinine 1.01 Estimated GFR 80 L POC Glucose Random Glucose 126 H Calcium 8.2 L Phosphorus 2.6 Magnesium 1.9 Total Bilirubin 1.2 H AST 14 L ALT 32 Alkaline Phosphatase 66 Ammonia 22 Total Protein 7.7 Albumin 3.6 Vancomycin Trough 08/09/18 08/09/18 08/09/18 08:46 09:30 12:00 WBC RBC Hgb Hct MCV MCH MCHC RDW Plt Count MPV Puncture Site Right radial Patient Temperature 98.6 O2 Saturation 95 ABG pH 7.46 H ABG pCO2 37 L ABG pO2 87 ABG HCO3 26 ABG O2 Content 20.5 H ABG Base Excess 2.5 H ABG Methemoglobin 1.4 Gabriel Test Present Hemoglobin 15.3 Carboxyhemoglobin 0.9 O2 Delivery Device Nasal cannula Liter Flow 3.00 Critical Value No Sodium Potassium Chloride Carbon Dioxide Anion Gap BUN Creatinine Estimated GFR POC Glucose 132 H Random Glucose Calcium Phosphorus Magnesium Total Bilirubin AST ALT Alkaline Phosphatase Ammonia Total Protein Albumin Vancomycin Trough 8.4 08/09/18 13:52 WBC RBC Hgb Hct MCV MCH MCHC RDW Plt Count MPV Puncture Site Patient Temperature O2 Saturation ABG pH ABG pCO2 ABG pO2 ABG HCO3 ABG O2 Content ABG Base Excess ABG Methemoglobin Gabriel Test Hemoglobin Carboxyhemoglobin O2 Delivery Device Liter Flow Critical Value Sodium Potassium Chloride Carbon Dioxide Anion Gap BUN Creatinine Estimated GFR POC Glucose 121 H Random Glucose Calcium Phosphorus Magnesium Total Bilirubin AST ALT Alkaline Phosphatase Ammonia Total Protein Albumin Vancomycin Trough Microbiology 08/07/18 19:00 Blood - Peripheral Aerobic Blood Culture - Preliminary No growth in 2 days 08/07/18 19:00 Blood - Peripheral Anaerobic Blood Culture - Preliminary No growth in 2 days 08/07/18 19:38 Blood - Peripheral Aerobic Blood Culture - Preliminary No growth in 2 days 08/07/18 19:38 Blood - Peripheral Anaerobic Blood Culture - Preliminary No growth in 2 days - Imaging Impressions Chest X-Ray 08/09/18 04:00 CONCLUSION: Hypoinflation. Clear lungs. Head CT 08/09/18 11:53 CONCLUSION: 1. Stable noncontrast head CT. No acute intracranial abnormality is identified. 2. Stable areas of low density in the periventricular regions bilaterally which could represent atelectasis. . Assessment and Plan - Plan This is a 48-year-old male with a history of noncompliance presenting with lethargy nausea and vomiting concern for neurological changes possible increasing intracranial pressure, as well as intra-abdominal dysfunction refusing imaging. Patient's lethargy very concerning in the setting of nausea and vomiting and hypertensive urgency. Admit to ICU the patient is critically ill obtain imaging and laboratory studies. Plan by systems: Neurologic: Metabolic encephalopathy, metabolic? Altered mental status -Obtain stat CT of the brain -Ammonia level, TSH level -Urine tox screen negative R/o CVA. Slurred speech 08/09/18. Repeat CT head reviewed no hgg control BP Monitor VS and adjust meds as need started on lisinopril, amlodipine. continue prn hydralazine Consult neurology for eval. Plan for MRI brain Respiratory: -Obtain ABG, concern for CO2 narcosis -Duo nebs as needed -Supplement with nasal cannula O2 wean as tolerated to maintain O2 saturation 92 % -Avoid all sedative type medication -Neurochecks per ICU protocol Cardiovascular: Hypertensive urgency -Begin Lopressor 25 mg twice daily, wean off nicardipine infusion -Labetalol and hydralazine as needed -Monitor serial troponins negative Renal: Hypokalemia Replete per electrolyte protocol -- Strict I/Os FEN/GI: Diabetes mellitus Obesity Nausea and vomiting-resolved Ketonuria -Continue IV hydration normal saline at 100 cc/hr -Obtain CT of the abdomen without contrast - hemoglobin A1c- 8.2 -Obtain hepatic function panel -Begin carb controlled diabetic diet -Zofran for nausea Heme/ID: Leukocytosis Sepsis Obtain blood and urine cultures Continue prophylactic coverage with Vanco and Zosyn, will de-escalate upon speciation Obtain urine strep pneumo, Legionella, and influenza A/B antigen Endocrine: Diabetes mellitus, uncontrolled with HGB a1c of 8.2 A1c 8.2 -- SSI Prophylaxis: GI Prophylaxis Famotidine DVT Prophylaxis -- SCDs Initiate heparin 5000 units twice daily PT evaluation and treatment Lines: Peripheral IVs providing adequate access. Central line if indicated Noncompliance with meds and appointments. 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
[2018-08-09] MEDS ORDERED: LORazepam 0.5 MG Tablet PO ONE ×2 (14:42→18:15)
[2018-08-09] MEDS: Enoxaparin Inj 30 MG/0.3 ML Syringe SQ SCH (18:06)
[2018-08-09] MEDS: NIFEdipine 10 MG Capsule PO SCH (18:10)
--- NOTE | 2018-08-09 18:19 | MB ---
cc: Farzad Serrano MD DATE: 08/09/2018 HISTORY OF PRESENT ILLNESS: A 48-year-old man who has really been very healthy, came in the ER, had diarrhea for about a week, some blurred vision, nausea, vomiting, felt lightheaded, maybe a little bit of vertiginous symptoms when he stood up, and a white count of 11. He was given vancomycin. He was somewhat lethargic. About noontime, his speech seemed to be sort of mumbling and garbled. His right eye was a little droopy. REVIEW OF SYSTEMS: He denies any history of hypertension, diabetes, hypercholesterolemia, LA, CABG, cardiac arrhythmia, renal, hepatic or pulmonary disease, thyroid disease, lupus, ulcer, cancer, seizure or stroke. There is no neck stiffness. He has a mild headache, minimal really, he tells me. SOCIAL HISTORY: Nonsmoker or drinker. No IV drugs. He is HIV negative. Lives by himself. FAMILY HISTORY: Negative for seizure or stroke. MEDICATIONS: He is on: 1. Tylenol. 2. Enalapril. 3. Lovenox subcutaneously. 4. Glucagon. 5. Insulin. 6. Lisinopril. 7. Metoprolol. A lot of blood pressure medications. PHYSICAL EXAMINATION: GENERAL: On exam, he is sinus rhythm. VITAL SIGNS: His temperature has been afebrile. His blood pressures initially when he came in to the hospital, 185/108; otherwise below that, running 140s-150s. Today it went up to as high as 181/94. NECK: There are no carotid bruits. HEART: Regular rate and rhythm. I did not detect a murmur. NEUROLOGIC: Pupils are equal. Visual sims are full. Extraocular movements intact without nystagmus. Face is symmetric with normal sensation. Tongue was midline. No ptosis now. There is no drift. He has normal strength in upper and lower extremities bilaterally. Toes downgoing bilaterally. Pinprick is intact throughout. Did not test [id number]. Speech is fluent. He is not aphasic. Alert and oriented x 3. Neck is supple. LABORATORY DATA: White count is 12.5, otherwise CBC is normal. UA was negative. Basic metabolic profile was normal. LFTs normal. B12 normal TSH normal, folate normal, cortisol level normal. ABG 7.46 37, 87. Coags were normal. CBC is noted negative. A CAT scan of the brain is unremarkable. CT reviewed. I do not see any abnormalities, except for a small left old lacunar type change in the white matter. This was read as stable from a prior CT, apparently from 08/07/2018. IMPRESSION: I thought he looked well, neurologically. I do not see any neurological deficits. We will check an MRI with the dizziness he had, to make sure he did not have a posterior fossa infarct not seen on the CT. Overall, I thought he looked normal neuro barth. There is no evidence for meningitis or encephalitis. No facial asymmetry now. MD HANNAH Harris/kaden , 04:49 PM , 05:00 PM
[2018-08-09] MEDS ORDERED: Gadobutrol PF 15 MMOL/15 ML Vial (for RAD) IV.SIG ONE (20:39)
--- NOTE | 2018-08-09 20:50 | MR ---
EXAM DATE: 08/09/2018 8:43 PM EST AGE/SEX: 48 years / Male INDICATIONS: CVA. Slurred speech. Abnormal head CT with low-attenuation areas in the periventricu lar white matter. CLINICAL DATA: This is the patient's subsequent encounter. Patient reports that signs and symptoms h ave been present for 2 days and indicates a pain score of 0/10. MEDICAL/SURGICAL HISTORY: Diabetes mellitus type II. Hypertension. Appendectomy. COMPARISON: [facility] – [place], CT HEAD W/O CONTRAST, 08/07/2018. . TECHNIQUE: Multiplanar, multisequence examination of the brain was performed without and with 12 ml G adavist (gadobutrol) contrast as a single exam dose. FINDINGS: Cerebrum: Mild atrophic changes noted with sulcal and ventricular prominence. No evidence of midline shift, mass lesion, or hemorrhage. Multiple small lacunar infarcts in the basal ganglia periventricu lar white matter. No extraaxial fluid collections are seen. The pituitary gland and suprasellar cist michelle are normal in configuration. White Matter: On the FLAIR weighted images there is increased signal in the periventricular white ma tter characteristic of chronic small vessel ischemic type change. Posterior Fossa: The cerebellum and brainstem are intact. The 4th ventricle is midline. The cerebel lopontine angle is unremarkable. The cerebellar tonsils are normal in position. Diffusion Imaging: There are 2 adjacent small areas of restricted diffusion involving the white julia er of the left parietal lobe seen on axial image #18. Extracranial: The visualized portions of the orbits and paranasal sinuses are unremarkable. Post Contrast: No abnormal areas of parenchymal or dural enhancement. No evidence of blood-brain ba rrier breakdown. CONCLUSION: 1. 2 small adjacent foci of restricted diffusion in the white matter of the left parietal lobe consi stent with acute to subacute areas of infarction. 2. Multiple small chronic infarcts. 3. Atrophy and apparent chronic small vessel ischemic change. Electronically signed by: Brian Lundberg MD 08/09/2018 8:49 PM EST
[2018-08-09] MEDS: Vancomycin Inj 2,250 MG in Sodium Chlor 0.9% Inj 500 ML IV.SIG SCH (21:13)
[2018-08-09] MEDS: Lisinopril 5 MG Tablet PO SCH (21:20)
[2018-08-10] MEDS: Piperacil/Tazo 3.375 GM Premix 50 ML IV.SIG SCH ×4 (00:05→17:20)
[2018-08-10] MEDS: hydrALAZINE HCl Inj 20 MG/ML Vial IV.PUSH PRN ×2 (03:21→22:08)
[2018-08-10] MEDS: Insulin NovoLOG Aspart Correctional Sugar Inj SQ SCH ×5 (03:25→22:16)
[2018-08-10] MEDS: Chlorhexidine Gluconate 2% 1 Pack (2 Cloths) TOPICAL SCH (04:50)
[2018-08-10 06:02] LABS: Baso # (Auto) 0.1 th/mm3 (0.0-0.2); Baso % (Auto) 0.8 % (0.0-2.0); Eos # (Auto) 0.1 th/mm3 (0.0-0.4); Hematocrit 44.4 % (39.0-51.0); Hemoglobin 15.5 gm/dL (13.0-17.0); Lymph # (Auto) 2.1 th/mm3 (1.0-4.8); Mean Corpuscular HGB Conc 34.9 % (32.0-36.0); Mean Corpuscular Hemoglobin 29.5 pg (27.0-34.0); Mean Corpuscular Volume 84.6 fL (80.0-100.0); Mean Platelet Volume 9.9 fL (7.0-11.0); Mono % (Auto) 8.9 % (0.0-8.0); Neut # (Auto) 7.6 th/mm3 (1.8-7.7); Neut % (Auto) 70.3 % (16.0-70.0); Platelet Count 204 th/mm3 (150-450); Red Blood Count 5.24 mil/mm3 (4.50-5.90); White Blood Count 10.8 th/mm3 (4.0-11.0)
[2018-08-10 06:06] LABS: Anion Gap 9 meq/L (5-15); Blood Urea Nitrogen 11 mg/dL (7-18); Calcium 8.6 mg/dL (8.5-10.1); Carbon Dioxide 25.8 meq/L (21.0-32.0); Chloride 104 meq/L (98-107); Glomerular Filtration Rate Greater Than 89 mL/min (>89); Glucose,Random 119 mg/dL (74-106); Potassium 3.2 meq/L (3.5-5.1); Sodium 139 meq/L (136-145)
[2018-08-10] MEDS: Sod Chloride 0.9% Inj 1,000 ML IV.CONT SCH ×2 (06:22→15:21)
[2018-08-10] MEDS: Potassium Chlor 20 mEq Premix 20 MEQ/100 ML PIGGYBACK IV.SIG PRN ×3 (06:30→15:21)
--- NOTE | 2018-08-10 07:01 | P.PNNEU ---
Subjective Active Medications: Active Medications Acetaminophen (Tylenol) 650 mg PO Q6H PRN PRN Reason: PAIN 1-10 AND/OR FEVER >101F Al Hydroxide/Mg Hydroxide (Milk Of Shruti French) 30 ml PO Q12H PRN PRN Reason: Mild Constipation Albuterol (Duoneb Neb (Prn)) 1 ampul NEB Q2HR NEB PRN PRN Reason: WHEEZING Bisacodyl (Dulcolax Supp) 10 mg RECTAL DAILY PRN PRN Reason: SEVERE CONSITIPATION Chlorhexidine Gluconate (Chlorhexidine 2% Cloth) 3 pack TOPICAL DAILY@0400 FABIOLA Stop: 08/13/18 03:59 Last Admin: 08/10/18 04:50 Dose: 3 pack Chlorhexidine Gluconate (Chlorhexidine 2% Cloth) 3 pack TOPICAL DAILY@0400 PRN PRN Reason: Extra cloth needed Stop: 08/13/18 03:59 Dextrose (D50w Vial) 50 ml IV.PUSH UNSCH PRN PRN Reason: PER HYPOGLYCEMIA PROTOCOL Enalaprilat (Vasotec Inj) 2.5 mg IV.PUSH Q6H PRN PRN Reason: SBP>160, DBP>90 Last Admin: 08/10/18 06:17 Dose: 2.5 mg Enoxaparin Sodium (Lovenox Inj) 30 mg SQ Q24H FABIOLA Last Admin: 08/09/18 18:06 Dose: 30 mg Famotidine (Pepcid Pf Inj) 20 mg IV.PUSH Q12HR FABIOLA Last Admin: 08/09/18 21:21 Dose: 20 mg Glucagon (Glucagon Inj) 1 mg OTHER PRN PRN PRN Reason: for Hypoglycemia Protocol Hydralazine HCl (Apresoline Inj) 20 mg IV.PUSH Q4H PRN PRN Reason: HYPERTENSION Last Admin: 08/10/18 03:21 Dose: 20 mg Magnesium Sulfate 4 gm/ Sodium (Chloride) 100 mls @ 50 mls/hr IV.SIG UNSCH PRN PRN Reason: For Magnesium 0.9 - 1.1 mg/dL Magnesium Sulfate 2 gm/ Sodium (Chloride) 100 mls @ 50 mls/hr IV.SIG UNSCH PRN PRN Reason: For Magnesium 1.2 - 1.6 mg/dL Potassium Chloride (Kcl 40 Meq Premix Inj) 40 meq in 100 mls @ 25 mls/hr IV.SIG Q2H PRN PRN Reason: For Potassium 2.8 - 3.2 mEq/L Potassium Chloride (Kcl 20 Meq Premix Inj) 20 meq in 100 mls @ 50 mls/hr IV.SIG Q2H PRN PRN Reason: For Potassium 3.3 - 3.5 mEq/L Potassium Chloride (Kcl 40 Meq Premix Inj) 40 meq in 100 mls @ 25 mls/hr IV.SIG UNSCH PRN PRN Reason: For Potassium 3.3 - 3.5 mEq/L Potassium Chloride (Kcl 20 Meq Premix Inj) 20 meq in 100 mls @ 50 mls/hr IV.SIG Q2H PRN PRN Reason: For Potassium 2.8 - 3.2 mEq/L Last Admin: 08/10/18 06:30 Dose: 50 mls/hr Potassium Phosphate 30 mmol/ (Sodium Chloride) 260 mls @ 42 mls/hr IV.SIG UNSCH PRN PRN Reason: SEE LABEL COMMENTS Sodium Phosphate 30 mmol/ (Sodium Chloride) 260 mls @ 42 mls/hr IV.SIG UNSCH PRN PRN Reason: For Phosphorus < 2.5 mg/dL Nicardipine HCl 25 mg/ Sodium (Chloride) 250 mls @ 50 mls/hr IV.CONT TITRATE FABIOLA; Protocol Last Titration: 08/08/18 21:51 Dose: Infused Sodium Chloride (Ns Inj) 1,000 mls @ 100 mls/hr IV.CONT .Q10H FABIOLA Last Admin: 08/10/18 06:22 Dose: 100 mls/hr Piperacillin/Tazobactam/Dextrose (Zosyn 3.375 Gm Premix) 50 mls @ 100 mls/hr IV.SIG Q6H FABIOLA Last Infusion: 08/10/18 06:58 Dose: Infused Vancomycin HCl 2,250 mg/ (Sodium Chloride) 522.5 mls @ 250 mls/hr IV.SIG Q12H FABIOLA Last Infusion: 08/09/18 23:20 Dose: Infused Insulin Aspart (Novolog Insulin [employer] Sugar Inj) 0 unit SQ ACHS AND 3AM FABIOLA; Protocol Last Admin: 08/10/18 03:25 Dose: Not Given Lactulose (Lactulose Liq) 30 ml PO DAILY PRN PRN Reason: SEVERE CONSITIPATION Lisinopril (Prinivil) 10 mg PO BID FABIOLA Last Admin: 08/09/18 21:20 Dose: 10 mg Magnesium Oxide (Mag-Ox) 800 mg PO UNSCH PRN PRN Reason: For Magnesium 1.2 - 1.6 mg/dL Metoprolol Tartrate (Lopressor) 25 mg PO BID [facility] Last Admin: 08/09/18 21:14 Dose: 25 mg Miscellaneous Information ([facility] [place] [facility] Ordered Lab Info) 0 each OTHER ONCE ONE Stop: 08/11/18 07:46 Nifedipine (Procardia) 10 mg PO TID [facility] Last Admin: 08/09/18 18:10 Dose: 10 mg Ondansetron HCl (Zofran Inj) 4 mg IV.PUSH Q6H PRN PRN Reason: NAUSEA OR VOMITING Pharmacy Profile Note (Vancomycin Consult Pharmacy) 1 each OTHER UNSCH PRN PRN Reason: Pharmacy to dose Potassium Bicarb/Potassium Chloride (K-Lyte Cl Eff) 50 meq PO UNSCH PRN PRN Reason: For Potassium 3.3 - 3.5 mEq/L Last Admin: 08/09/18 10:00 Dose: 50 meq Potassium Phosphate (K-Phos Original) 2,000 mg PO UNSCH PRN PRN Reason: SEE LABEL COMMENTS Potassium Phosphate (K-Phos Original) 2,000 mg PO Q4H PRN PRN Reason: Phosphorus Less Than 2.5 mg/dL Senna/Docusate Sodium (Sobeida-Colace) 1 tab PO BID [facility] Last Admin: 08/09/18 21:21 Dose: Not Given Sennosides (Senokot) 17.2 mg PO Q12H PRN PRN Reason: Moderate Constipation Sodium Chloride (Ns Flush) 2 ml IV.FLUSH BID [facility] Last Admin: 08/09/18 21:20 Dose: 2 ml Sodium Chloride (Ns Flush) 2 ml IV.FLUSH PRN PRN PRN Reason: FLUSH AFTER USING IV ACCESS Allergies/Adverse Reactions: Allergies Allergy/AdvReac Type Severity Reaction Status Date / Time No Known Allergies Allergy Verified 08/07/18 09:59 Physical Exam Vital signs: Vital Signs 08/09/18 08:00 08/09/18 09:08 08/09/18 09:11 Temperature 98.5 F Pulse Rate 91 H 101 H Respiratory Rate 22 Blood Pressure 186/97 H Pulse Oximetry 93 L 93 L 08/09/18 10:09 08/09/18 10:30 12/05/18 11:00 Temperature Pulse Rate 92 H 87 80 Respiratory Rate 20 16 18 Blood Pressure 177/104 H 167/109 H Pulse Oximetry 93 L 93 L 93 L 08/09/18 11:30 08/09/18 12:00 08/09/18 12:12 Temperature 98.5 F Pulse Rate 84 104 H 84 Respiratory Rate 21 27 H 22 Blood Pressure 156/102 H 165/103 H Pulse Oximetry 94 L 94 L 94 L 08/09/18 12:30 08/09/18 13:00 08/09/18 13:06 Temperature Pulse Rate 84 83 86 Respiratory Rate 22 23 24 Blood Pressure 168/96 H 172/107 H Pulse Oximetry 95 95 96 08/09/18 13:30 08/09/18 14:00 08/09/18 14:30 Temperature Pulse Rate 81 83 98 H Respiratory Rate 18 20 17 Blood Pressure 171/102 H 167/95 H 163/84 H Pulse Oximetry 95 95 96 08/09/18 15:00 08/09/18 15:30 08/09/18 16:00 Temperature Pulse Rate 103 H 96 H 101 H Respiratory Rate 20 22 24 Blood Pressure 172/92 H 167/86 H 185/104 H Pulse Oximetry 96 93 L 93 L 08/09/18 16:15 08/09/18 16:30 08/09/18 17:00 Temperature Pulse Rate 91 H 88 92 H Respiratory Rate 21 17 22 Blood Pressure 175/105 H 160/98 H 164/106 H Pulse Oximetry 95 95 93 L 08/09/18 17:38 08/09/18 18:00 08/09/18 18:30 Temperature 98.9 F Pulse Rate 96 H 93 H 91 H Respiratory Rate 20 23 18 Blood Pressure 175/104 H 173/103 H 166/98 H Pulse Oximetry 95 94 L 94 L 08/09/18 19:00 08/09/18 19:30 08/09/18 19:45 Temperature Pulse Rate 97 H 98 H Respiratory Rate 16 20 Blood Pressure 149/84 H 135/82 Pulse Oximetry 93 L 90 L 94 L 08/09/18 20:00 08/09/18 21:00 08/09/18 21:06 Temperature 97.7 F Pulse Rate 101 H 94 H 95 H Respiratory Rate 22 20 19 Blood Pressure 150/94 H 176/103 H Pulse Oximetry 93 L 08/09/18 21:13 08/09/18 21:30 08/09/18 22:00 Temperature Pulse Rate 88 91 H 96 H Respiratory Rate 20 23 20 Blood Pressure 162/96 H 172/99 H 173/126 H Pulse Oximetry 08/09/18 22:04 08/09/18 22:15 08/09/18 22:30 Temperature Pulse Rate 95 H 92 H 86 Respiratory Rate 21 21 17 Blood Pressure 168/101 H 163/99 H 167/100 H Pulse Oximetry 08/09/18 23:00 08/09/18 23:30 08/10/18 00:00 Temperature 97.8 F Pulse Rate 85 80 94 H Respiratory Rate 18 19 22 Blood Pressure 173/104 H 166/98 H 169/99 H Pulse Oximetry 94 L 94 L 94 L 08/10/18 00:30 08/10/18 01:00 08/10/18 01:30 Temperature Pulse Rate 88 86 85 Respiratory Rate 19 21 19 Blood Pressure 169/101 H 176/107 H 169/95 H Pulse Oximetry 93 L 95 94 L 08/10/18 02:00 Temperature Pulse Rate 88 Respiratory Rate 20 Blood Pressure 177/134 H Pulse Oximetry 92 L Intake & Output 08/09/18 08/09/18 08/10/18 06:59 18:59 06:59 Intake Total 3477.5 / 3477.5 1520 / 1520 1622.5 / 1622.5 Output Total 1400 / 1400 1650 / 1650 200 / 200 Balance 2077.5 / 2077.5 -130 / -130 1422.5 / 1422.5 Weight 125 kg Intake: IV 2517.5 / 2517.5 1100 / 1100 1622.5 / 1622.5 NS Inj 1,000 ML @ 100 mls/hr IV 1000 / 1000 1000 / 1000 1000 / 1000 .CONT .Q10H FABIOLA Rx#:[id number] Cardene Inj 25 MG In NS Inj 240 250 / 250 ML @ 5 MG/HR 50 mls/hr IV.CONT TITRATE FABIOLA Rx#:[id number] Zosyn 3.375 GM Premix 50 ML @ 150 / 150 100 / 100 100 / 100 100 mls/hr IV.SIG Q6H FABIOLA Rx#: [id number] KCl 20 mEq Premix Inj 20 meq In 100 / 100 100 ml @ 50 mls/hr IV.SIG Q2H PRN Rx#:[id number] NS Inj 500 ML @ 1000 mls/hr IV. 500 / 500 SIG BOLUS FABIOLA Rx#:[id number] Vancomycin Inj 2,250 MG In NS 517.5 / 517.5 522.5 / 522.5 Inj 500 ML @ 250 mls/hr IV.SIG Q12H FABIOLA Rx#:[id number] Oral 960 / 960 420 / 420 Output: Urine 1400 / 1400 1650 / 1650 200 / 200 Emesis 0 / 0 0 / 0 Other: # Voids 1 1 Narrative: awake alert speech clear moves all well Objective Laboratory Results - last 24 hr 08/09/18 08/09/18 08/09/18 08:46 09:30 12:00 WBC RBC Hgb Hct MCV MCH MCHC RDW Plt Count MPV Neut % (Auto) Lymph % (Auto) [place] % (Auto) Eos % (Auto) Baso % (Auto) Neut # (Auto) Lymph # (Auto) [place] # (Auto) Eos # (Auto) Baso # (Auto) WBC Differential Differential Comment Puncture Site Right radial Patient Temperature 98.6 O2 Saturation 95 ABG pH 7.46 H ABG pCO2 37 L ABG pO2 87 ABG HCO3 26 ABG O2 Content 20.5 H ABG Base Excess 2.5 H ABG Methemoglobin 1.4 Gabriel Test Present Hemoglobin 15.3 Carboxyhemoglobin 0.9 O2 Delivery Device Nasal cannula Liter Flow 3.00 Critical Value No Sodium Potassium Chloride Carbon Dioxide Anion Gap BUN Creatinine Estimated GFR POC Glucose 132 H Random Glucose Calcium Vancomycin Trough 8.4 08/09/18 08/09/18 08/10/18 13:52 21:28 03:23 WBC RBC Hgb Hct MCV MCH MCHC RDW Plt Count MPV Neut % (Auto) Lymph % (Auto) [place] % (Auto) Eos % (Auto) Baso % (Auto) Neut # (Auto) Lymph # (Auto) [place] # (Auto) Eos # (Auto) Baso # (Auto) WBC Differential Differential Comment Puncture Site Patient Temperature O2 Saturation ABG pH ABG pCO2 ABG pO2 ABG HCO3 ABG O2 Content ABG Base Excess ABG Methemoglobin Gabriel Test Hemoglobin Carboxyhemoglobin O2 Delivery Device Liter Flow Critical Value Sodium Potassium Chloride Carbon Dioxide Anion Gap BUN Creatinine Estimated GFR POC Glucose 121 H 127 H 115 H Random Glucose Calcium Vancomycin Trough 08/10/18 08/10/18 05:15 05:15 WBC 10.8 RBC 5.24 Hgb 15.5 Hct 44.4 MCV 84.6 MCH 29.5 MCHC 34.9 RDW 13.0 Plt Count 204 MPV 9.9 Neut % (Auto) 70.3 H Lymph % (Auto) 19.0 [place] % (Auto) 8.9 H Eos % (Auto) 1.0 Baso % (Auto) 0.8 Neut # (Auto) 7.6 Lymph # (Auto) 2.1 [place] # (Auto) 1.0 H Eos # (Auto) 0.1 Baso # (Auto) 0.1 WBC Differential . Differential Comment Auto diff final Puncture Site Patient Temperature O2 Saturation ABG pH ABG pCO2 ABG pO2 ABG HCO3 ABG O2 Content ABG Base Excess ABG Methemoglobin Gabriel Test Hemoglobin Carboxyhemoglobin O2 Delivery Device Liter Flow Critical Value Sodium 139 Potassium 3.2 L Chloride 104 Carbon Dioxide 25.8 Anion Gap 9 BUN 11 Creatinine 0.84 Estimated GFR Greater than 89 POC Glucose Random Glucose 119 H Calcium 8.6 Vancomycin Trough Microbiology 08/07/18 19:00 Aerobic Blood Culture - Preliminary Blood - Peripheral No growth in 2 days Anaerobic Blood Culture - Preliminary No growth in 2 days 08/07/18 19:38 Aerobic Blood Culture - Preliminary Blood - Peripheral No growth in 2 days Anaerobic Blood Culture - Preliminary No growth in 2 days Review/Management - Review/Management Plan: imp 08/10/18 mri shows r cerebellar peduncle diffusion abn and two tiny left wm ones probably small acute cva but cannot say for sure with wm changes perivent and old wm spots could be MS ray albright plan is mra/a/av his echo neg and trop neg hypercoag screen and LP to look for ms aurelia hold blood thinners for now
[2018-08-10] MEDS: Senna/Docusate Sodium 8.6/50 MG Tablet PO SCH ×2 (08:41→20:38)
[2018-08-10] MEDS: Metoprolol Tartrate 25 MG Tablet PO SCH ×2 (08:41→20:39)
[2018-08-10] MEDS: NIFEdipine 10 MG Capsule PO SCH ×3 (08:42→17:20)
[2018-08-10] MEDS: Famotidine PF Inj 20 MG/2 ML Vial IV.PUSH SCH ×2 (08:42→20:38)
[2018-08-10] MEDS: Lisinopril 5 MG Tablet PO SCH ×2 (08:42→20:38)
[2018-08-10] MEDS: Vancomycin Inj 2,250 MG in Sodium Chlor 0.9% Inj 500 ML IV.SIG SCH ×2 (08:43→20:41)
[2018-08-10 11:03] LABS: Vitamin B12 554 pg/mL (193-986)
--- NOTE | 2018-08-10 11:34 | MR ---
EXAM DATE: 08/10/2018 11:29 AM EST AGE/SEX: 48 years / Male INDICATIONS: CVA. Slurred speech. CLINICAL DATA: This is the patient's subsequent encounter. Patient reports that signs and symptoms h ave been present for 3 days and indicates a pain score of 0/10. MEDICAL/SURGICAL HISTORY: Diabetes mellitus type II. Hypertension. Appendectomy. COMPAR[place]: [facility] [place], 08/10/2018. [facility] [place] & W/O CONTRAST, 08/09/2018. . TECHNIQUE: 3D [id number] MRA was performed. Source images, multiplanar STS MIP, and 3D volum e MIP reconstructions were reviewed. FINDINGS: There is excellent visualization of the major intracranial arteries out to the second-order branch ve ssels. There is no evidence for aneurysm, vessel truncation or stenosis, and no evidence for vascula r malformation. CONCLUSION: Negative MRA of the brain. Electronically signed by: Chilango Cevallos MD 08/10/2018 11:33 AM EST
--- NOTE | 2018-08-10 11:38 | P.PNIM ---
Subjective Interval history: Chief Complaint: Nausea and Vomiting/ Blurry vision History of Present Illness: This is a 48-year-old male that presented to the [facility] emergency [facility] via EMS this morning with complaints of having diarrhea approximately 1 week ago. He woke up this morning with complaints of blurry vision and nausea and vomiting. Patient upon presentation stated that the onset was 4 hours prior to arrival which point he was diaphoretic with a systolic blood pressure in the 200s. a nicardipine infusion was initiated in the ED. The patient provided a history of being diagnosed a diabetic and previously on metformin but stopped 3 or 4 years ago stating the diabetes went away imaging studies were attempted to be performed the brain and abdomen however the patient refused. Per history from emergency room physician the patient has a history of noncompliance, and poorly controlled diabetes mellitus. laboratory studies were obtained showing a slight leukocytosis with a WBC count of 11.2 patient was empirically given vancomycin and Zosyn. Critical care medicine was consulted, and the patient was transferred to [facility]. Upon presentation the patient's blood pressure was noted to be 160/102 the patient was noted to be lethargic initially refusing to have imaging studies done secondary to claustrophobia but subsequently agreeing to stat imaging studies. 12/4: Afebrile. No acute events overnight. Resolution of nausea and vomiting. The patient continues on normal saline 100 cc, Hgb A1c elevated notably patient is diabetic noncompliant. The patient expresses an appetite carb controlled diabetic diet ordered. Blood glucose glucose levels ranging in the 140s-200. Sliding scale insulin every 4 hours added to medication regimen. Patient continues on nicardipine infusion Lopressor added to medication regimen with continue weaning of nicardipine. 12-5 F/up encephalopathy, uncontrolled diabetes Patient is more awake and alert however he is noted with slurred speech. He does not have any motor deficit or sensory deficit. No change in vision. Nausea resolved he is able to eat and able to swallow. No fever or chills. No cough. Patient is anxious on and off. Patient he says he has a history of diabetes however he is not taking medications. Advised compliance with medications and dietary changes. Patient was counseled at length 12-6 HAD MORE STUDIES TODAY LOOKS LIKE STROKES ON MRI DW RN AND PT AND CM SEEN BY NEUROLOGY CONSULTED CARDIOLOGY PER NEUROLOGY OFF CARDENE DRIP NEEDS DM EDUCATION Physical Exam Vital signs: Vital Signs 08/09/18 11:30 08/09/18 12:00 08/09/18 12:12 Temperature 98.5 F Pulse Rate 84 104 H 84 Respiratory Rate 21 27 H 22 Blood Pressure 156/102 H 165/103 H Pulse Oximetry 94 L 94 L 94 L 08/09/18 12:30 08/09/18 13:00 08/09/18 13:06 Temperature Pulse Rate 84 83 86 Respiratory Rate 22 23 24 Blood Pressure 168/96 H 172/107 H Pulse Oximetry 95 95 96 08/09/18 13:30 08/09/18 14:00 08/09/18 14:30 Temperature Pulse Rate 81 83 98 H Respiratory Rate 18 20 17 Blood Pressure 171/102 H 167/95 H 163/84 H Pulse Oximetry 95 95 96 08/09/18 15:00 08/09/18 15:30 08/09/18 16:00 Temperature Pulse Rate 103 H 96 H 101 H Respiratory Rate 20 22 24 Blood Pressure 172/92 H 167/86 H 185/104 H Pulse Oximetry 96 93 L 93 L 08/09/18 16:15 08/09/18 16:30 08/09/18 17:00 Temperature Pulse Rate 91 H 88 92 H Respiratory Rate 21 17 22 Blood Pressure 175/105 H 160/98 H 164/106 H Pulse Oximetry 95 95 93 L 08/09/18 17:38 08/09/18 18:00 08/09/18 18:30 Temperature 98.9 F Pulse Rate 96 H 93 H 91 H Respiratory Rate 20 23 18 Blood Pressure 175/104 H 173/103 H 166/98 H Pulse Oximetry 95 94 L 94 L 08/09/18 19:00 08/09/18 19:30 08/09/18 19:45 Temperature Pulse Rate 97 H 98 H Respiratory Rate 16 20 Blood Pressure 149/84 H 135/82 Pulse Oximetry 93 L 90 L 94 L 08/09/18 20:00 08/09/18 21:00 08/09/18 21:06 Temperature 97.7 F Pulse Rate 96 H 94 H 95 H Respiratory Rate 22 20 19 Blood Pressure 150/94 H 176/103 H Pulse Oximetry 94 L 08/09/18 21:13 08/09/18 21:30 08/09/18 22:00 Temperature Pulse Rate 88 91 H 96 H Respiratory Rate 20 23 20 Blood Pressure 162/96 H 172/99 H 173/126 H Pulse Oximetry 08/09/18 22:04 08/09/18 22:15 08/09/18 22:30 Temperature Pulse Rate 95 H 92 H 86 Respiratory Rate 21 21 17 Blood Pressure 168/101 H 163/99 H 167/100 H Pulse Oximetry 08/09/18 23:00 08/09/18 23:30 08/10/18 00:00 Temperature 97.8 F Pulse Rate 85 80 94 H Respiratory Rate 18 19 22 Blood Pressure 173/104 H 166/98 H 169/99 H Pulse Oximetry 94 L 94 L 94 L 08/10/18 00:30 08/10/18 01:00 08/10/18 01:30 Temperature Pulse Rate 88 86 85 Respiratory Rate 19 21 19 Blood Pressure 169/101 H 176/107 H 169/95 H Pulse Oximetry 93 L 95 94 L 08/10/18 02:00 08/10/18 02:30 08/10/18 03:00 Temperature Pulse Rate 88 78 76 Respiratory Rate 20 19 18 Blood Pressure 177/134 H 175/120 H 183/104 H Pulse Oximetry 92 L 94 L 94 L 08/10/18 03:24 08/10/18 03:30 08/10/18 04:00 Temperature 97.8 F Pulse Rate 72 81 90 Respiratory Rate 18 17 17 Blood Pressure 190/106 H 165/89 H 160/89 H Pulse Oximetry 94 L 93 L 93 L 08/10/18 04:30 08/10/18 05:00 08/10/18 05:30 Temperature Pulse Rate 88 88 116 H Respiratory Rate 18 16 27 H Blood Pressure 164/86 H 169/88 H 205/105 H Pulse Oximetry 94 L 94 L 94 L 08/10/18 05:36 08/10/18 06:00 08/10/18 06:30 Temperature Pulse Rate 98 H 92 H 90 Respiratory Rate 22 19 17 Blood Pressure 206/105 H 177/92 H 178/90 H Pulse Oximetry 94 L 90 L 92 L 08/10/18 07:00 08/10/18 07:30 Temperature Pulse Rate 93 H 89 Respiratory Rate 19 17 Blood Pressure 172/93 H 158/90 H Pulse Oximetry 92 L 93 L Intake & Output 08/09/18 08/10/18 08/10/18 18:59 06:59 18:59 Intake Total 1520 / 1520 1922.5 / 1922.5 0 / 0 Output Total 1650 / 1650 2100 / 2100 100 / 100 Balance -130 / -130 -177.5 / -177.5 -100 / -100 Weight 123.4 kg Intake: IV 1100 / 1100 1622.5 / 1622.5 NS Inj 1,000 ML @ 100 mls/hr IV 1000 / 1000 1000 / 1000 .CONT .Q10H FABI[facility]A Rx#:[id number] Zosyn 3.375 GM Premix 50 ML @ 100 / 100 100 / 100 100 mls/hr IV.SIG Q6H F[facility]A Rx#: [id number] Vancomycin Inj 2,250 MG In NS 522.5 / 522.5 Inj 500 ML @ 250 mls/hr IV.SIG Q12H F[facility]IOLA Rx#:[id number] Oral 420 / 420 300 / 300 0 / 0 Output: Urine 1650 / 1650 2100 / 2100 100 / 100 Emesis 0 / 0 0 / 0 Other: # Voids 1 1 # Bowel Movements 0 Narrative: GENERAL: This is obese male patient of stated age, in no acute distress SKIN: Warm and dry. HEAD: Atraumatic. Normocephalic. EYES: Pupils equal and round. No scleral icterus. No injection or drainage. ENT: No nasal bleeding or discharge. Mucous membranes pink and moist. NECK: Trachea midline. No JVD. CARDIOVASCULAR: Normal rate, regular rhythm. S1, S2 NO S3 OR S4 RESPIRATORY: No accessory muscle use. Clear to auscultation. Breath sounds equal bilaterally. GASTROINTESTINAL: Abdomen soft, non-tender, obese ,nondistended. No guarding. MUSCULOSKELETAL: Extremities without clubbing, cyanosis, or edema. No obvious deformities. NEUROLOGICAL: Awake and alert. No gross focal/sensory deficits. Follows commands in all 4 extremities. Results - Labs CBC & Chem 7: 08/10/18 05:15 08/10/18 05:15 Laboratory Results - last 24 hr 08/09/18 08/09/18 08/09/18 12:00 13:52 21:28 WBC RBC Hgb Hct MCV MCH MCHC RDW Plt Count MPV Neut % (Auto) Lymph % (Auto) [place] % (Auto) Eos % (Auto) Baso % (Auto) Neut # (Auto) Lymph # (Auto) [place] # (Auto) Eos # (Auto) Baso # (Auto) WBC Differential Differential Comment ESR Puncture Site Right radial Patient Temperature 98.6 O2 Saturation 95 ABG pH 7.46 H ABG pCO2 37 L ABG pO2 87 ABG HCO3 26 ABG O2 Content 20.5 H ABG Base Excess 2.5 H ABG Methemoglobin 1.4 Gabriel Test Present Hemoglobin 15.3 Carboxyhemoglobin 0.9 O2 Delivery Device Nasal cannula Liter Flow 3.00 Critical Value No Sodium Potassium Chloride Carbon Dioxide Anion Gap BUN Creatinine Estimated GFR POC Glucose 121 H 127 H Random Glucose Calcium Total Protein (PEP) Vitamin B12 Rheumatoid Factor Scrn Rheumatoid Factor Titer 08/10/18 08/10/18 08/10/18 03:23 05:15 05:15 WBC 10.8 RBC 5.24 Hgb 15.5 Hct 44.4 MCV 84.6 MCH 29.5 MCHC 34.9 RDW 13.0 Plt Count 204 MPV 9.9 Neut % (Auto) 70.3 H Lymph % (Auto) 19.0 [place] % (Auto) 8.9 H Eos % (Auto) 1.0 Baso % (Auto) 0.8 Neut # (Auto) 7.6 Lymph # (Auto) 2.1 [place] # (Auto) 1.0 H Eos # (Auto) 0.1 Baso # (Auto) 0.1 WBC Differential . Differential Comment Auto diff final ESR Puncture Site Patient Temperature O2 Saturation ABG pH ABG pCO2 ABG pO2 ABG HCO3 ABG O2 Content ABG Base Excess ABG Methemoglobin Gabriel Test Hemoglobin Carboxyhemoglobin O2 Delivery Device Liter Flow Critical Value Sodium 139 Potassium 3.2 L Chloride 104 Carbon Dioxide 25.8 Anion Gap 9 BUN 11 Creatinine 0.84 Estimated GFR Greater than 89 POC Glucose 115 H Random Glucose 119 H Calcium 8.6 Total Protein (PEP) Vitamin B12 Rheumatoid Factor Scrn Rheumatoid Factor Titer 08/10/18 08/10/18 08/10/18 08:43 09:22 09:22 WBC RBC Hgb Hct MCV MCH MCHC RDW Plt Count MPV Neut % (Auto) Lymph % (Auto) [place] % (Auto) Eos % (Auto) Baso % (Auto) Neut # (Auto) Lymph # (Auto) [place] # (Auto) Eos # (Auto) Baso # (Auto) WBC Differential Differential Comment ESR 5 Puncture Site Patient Temperature O2 Saturation ABG pH ABG pCO2 ABG pO2 ABG HCO3 ABG O2 Content ABG Base Excess ABG Methemoglobin Gabriel Test Hemoglobin Carboxyhemoglobin O2 Delivery Device Liter Flow Critical Value Sodium Potassium Chloride Carbon Dioxide Anion Gap BUN Creatinine Estimated GFR POC Glucose 133 H Random Glucose Calcium Total Protein (PEP) 7.5 Vitamin B12 554 Rheumatoid Factor Scrn Negative Rheumatoid Factor Titer Not Reportable Microbiology 08/07/18 19:00 Blood - Peripheral Aerobic Blood Culture - Preliminary No growth in 3 days 08/07/18 19:00 Blood - Peripheral Anaerobic Blood Culture - Preliminary No growth in 3 days 08/07/18 19:38 Blood - Peripheral Aerobic Blood Culture - Preliminary No growth in 3 days 08/07/18 19:38 Blood - Peripheral Anaerobic Blood Culture - Preliminary No growth in 3 days - Imaging Impressions Head MRI 08/09/18 00:00 CONCLUSION: 1. 2 small adjacent foci of restricted diffusion in the white matter of the left parietal lobe consistent with acute to subacute areas of infarction. 2. Multiple small chronic infarcts. 3. Atrophy and apparent chronic small vessel ischemic change. Head CT 08/09/18 11:53 CONCLUSION: 1. Stable noncontrast head CT. No acute intracranial abnormality is identified. 2. Stable areas of low density in the periventricular regions bilaterally which could represent atelectasis. . Assessment and Plan - Plan Assessment: This is a 48-year-old male with a history of noncompliance presenting with lethargy nausea and vomiting concern for neurological changes possible increasing intracranial pressure, as well as intra-abdominal dysfunction refusing imaging. Patient's lethargy very concerning in the setting of nausea and vomiting and hypertensive urgency. Admit to ICU the patient is critically ill obtain imaging and laboratory studies. Plan by systems: Neurologic: Metabolic encephalopathy, metabolic? Altered mental status -Obtain stat CT of the brain -Ammonia level, TSH level -Urine tox screen negative Respiratory: -Obtain ABG, concern for CO2 narcosis -Duo nebs as needed -Supplement with nasal cannula O2 wean as tolerated to maintain O2 saturation 92 % -Avoid all sedative type medication -Neurochecks per ICU protocol Cardiovascular: Hypertensive urgency -Begin Lopressor 25 mg twice daily, wean off nicardipine infusion -Labetalol and hydralazine as needed -Monitor serial troponins negative Renal: Hypokalemia Replete per electrolyte protocol -- Strict I/Os WILL REPLACE AGAIN FEN/GI: Diabetes mellitus Obesity Nausea and vomiting-resolved Ketonuria -Continue IV hydration normal saline at 100 cc/hr -Obtain CT of the abdomen without contrast - hemoglobin A1c- 8.2 -Obtain hepatic function panel -Begin carb controlled diabetic diet -Zofran for nausea DM EDUCATION Heme/ID: Leukocytosis Sepsis Obtain blood and urine cultures Continue prophylactic coverage with Vanco and Zosyn, will de-escalate upon speciation Obtain urine strep pneumo, Legionella, and influenza A/B antigen Endocrine: Diabetes mellitus Obtain hemoglobin A1c -- SSI Prophylaxis: GI Prophylaxis Famotidine DVT Prophylaxis -- SCDs Initiate heparin 5000 units twice daily PT evaluation and treatment Lines: Peripheral IVs providing adequate access. Code Status: FULL CODE Discussed Condition With: RN AND PT AND CM Discharge Planning: PENDING NEUROLOGY AND CARDIOLOGY CLEARANCE
--- NOTE | 2018-08-10 11:43 | MR ---
EXAM DATE: 08/10/2018 11:29 AM EST AGE/SEX: 48 years / Male INDICATIONS: Slurred speech. CLINICAL DATA: This is the patient's subsequent encounter. Patient reports that signs and symptoms h ave been present for 3 days and indicates a pain score of 0/10. MEDICAL/SURGICAL HISTORY: Hypertension. Diabetes mellitus type II. Appendectomy. COMPARISON: [facility] [place], MR HEAD W & W/O CONTRAST, 08/09/2018. . TECHNIQUE: MR cerebral venography is performed without contrast. Source images, 3D volume MIP, and s liding thin slab MIP reconstructions were reviewed. FINDINGS: The major cranial venous structures appear patent. The sagittal sinus, transverse sinus and sigmoid s inus appears patent bilaterally. There is asymmetry in the sinuses but no definite thrombus is seen. CONCLUSION: No intracranial venous thrombosis is identified. Electronically signed by: Chilango Stack MD 08/10/2018 11:42 AM EST
[2018-08-10] MEDS ORDERED: Gadobutrol PF 10 MMOL/10 ML Vial (for RAD) IV.SIG ONE (12:01)
--- NOTE | 2018-08-10 12:01 | MR ---
EXAM DATE: 08/10/2018 11:30 AM EST AGE/SEX: 48 years / Male INDICATIONS: Stenosis. CLINICAL DATA: This is the patient's subsequent encounter. Patient reports that signs and symptoms h ave been present for 3 days and indicates a pain score of 0/10. MEDICAL/SURGICAL HISTORY: Diabetes mellitus type II. Hypertension. Appendectomy. COMPARISON: No prior exams available for comparison. TECHNIQUE: 10 ml Gadavist (gadobutrol) contrast infused MRA (single exam dose) of the extracranial circulation was performed using a neurovascular coil. Postprocessing was performed, including rotati ng sub-volume maximum intensity projections of each carotid artery, rotating full-volume maximum inte nsity projections of both carotid arteries, sagittal and coronal sliding thin-slab reformations of ea ch carotid artery, and left oblique sliding thin-slab reformation through the aortic arch to include the origin of the arch branch vessels. FINDINGS: Aortic Arch : There is a three-vessel origin of the great vessels from the aorta. No evidence of o stial narrowing. Right Carotid : The common carotid artery is intact. The carotid bulb has a normal configuration wi thout ulceration or narrowing. The internal carotid artery lumen is smooth without stenosis. The ex ternal carotid artery is intact. Left Carotid : The common carotid artery is intact. The carotid bulb has a normal configuration wit hout ulceration or narrowing. The internal carotid artery lumen is smooth without stenosis. The ext ernal carotid artery is intact. Vertebrals : The vertebral arteries have a symmetric diameter. No stenotic lesions are seen. CONCLUSION: Negative MRA of the neck. Percent stenosis is calculated using the diameter of the stenotic region over the diameter of the nor mal distal internal carotid artery Electronically signed by: Chilango Cevallos MD 08/10/2018 11:59 AM EST
[2018-08-10 13:41] LABS: Hemoglobin A1c 8.1 % (4.3-6.0)
[2018-08-10 14:14] LABS: Barbiturate Screen,Urine Neg (Neg)
[2018-08-10 14:16] LABS: Amphetamine Screen,Urine Neg (Neg); Cannabinoid Screen,Urine Neg (Neg); Cocaine Screen,Urine Neg (Neg)
[2018-08-10 14:30] LABS: Opiate Screen,Urine Neg (Neg)
[2018-08-10] MEDS ORDERED: Influenza (Quadrivalent) Vaccine 0.5 ML Syringe IM ONE (14:45)
--- NOTE | 2018-08-10 15:28 | MB ---
cc: Reginald Hinson MD DATE: 08/09/2018 HISTORY OF PRESENT ILLNESS: Jovanny is a 48-year-old gentleman who presents with near syncope, followed by Dr. Gonzalez. Cardiology consult obtained for consideration of AYSHA. The patient is currently lying in bed, in no acute distress, appears to be comfortable. Denies chest pain, fever, chills, cough, GI or , bleeding, dysphagia. PAST MEDICAL HISTORY: Per of history of present illness. Also includes diabetes, hypertension. ALLERGIES: NONE. SOCIAL HISTORY: Denies tobacco or alcohol use. MEDICATIONS IN THE HOSPITAL: 1. Albuterol. 2. Pepcid 20 mg IV every 12 hours. 3. Insulin. 4. Prinivil 10 mg b.i.d. 5. Magnesium supplementation. 6. Lopressor 25 mg b.i.d. 7. Nicardipine drip. 8. Nifedipine 10 mg t.i.d. 9. Vancomycin. 10. Zosyn. 11. Potassium supplementation. PHYSICAL EXAMINATION: VITAL SIGNS: Initial blood pressure 164/97. Systolic blood pressures as high as 100 that are recorded since admission. Current blood pressure 137/86, pulse 92, respiratory rate 21, saturations 92% on room air, temperature 98.2. GENERAL: He is alert and oriented x3, in no acute distress. NECK: Supple. No JVD. No bruit. CARDIOVASCULAR: S1, S2. No murmurs, rubs, gallops. LUNGS: Coarse bilaterally. ABDOMEN: Soft, nontender, nondistended with positive bowel sounds. EXTREMITIES: No lower extremity edema. 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 EKG 08/07/2018: Normal sinus rhythm at 97 beats per minute, nonspecific ST-T wave changes. Head CT: No focal or acute intracranial hemorrhage, bilateral old lacunar infarcts in the basal ganglia regions. Echocardiogram: EF 55% to 60%. Mild LVH, trace to mild MR, mild TR. Head MRI: Two small adjacent foci of restricted diffusion in the white matter of the left parietal lobe consistent with acute to subacute areas of infarction, multiple small chronic infarcts, atrophy and apparent chronic small vessel ischemic changes. Head CT on 08/09/2018: Stable noncontrast head CT. "No acute intracranial abnormalities identified, stable areas of low density in the periventricular regions bilaterally, which could represent atelectasis." Head/brain magnetic resonance venography: No intracranial venous thrombosis is identified. Negative MRA of the neck. Head MRA: Negative MRA of the brain. LABORATORY DATA: White count initially 14.7, currently 10.8, hemoglobin 15.5, hematocrit 44.4, platelet count 204. INR 1.2. Blood gas initially pH 7.36, pO2 82, pCO2 of 37 on 2 liters nasal cannula. Sodium 139, potassium 3.2, chloride 104, bicarbonate 25.8, BUN 11, creatinine 0.84. Hemoglobin A1c is 8.1, magnesium 2.1. Toxicology is negative. DIAGNOSES: 1. Cerebrovascular accident. 2. Hypertension. 3. Diabetes. 4. Encephalopathy, resolved. 5. Elevated white count. 6. Hypokalemia. 7. Mild mitral valve regurgitation. Dr. Farzad Serrano has requested a transesophageal echocardiography. The patient denies dysphagia or other symptoms currently. PLAN: Perform AYSHA schedule permitting. Reginald Hinson MD AWC/ct , 02:49 PM , 02:59 PM
[2018-08-11] MEDS: Piperacil/Tazo 3.375 GM Premix 50 ML IV.SIG SCH ×4 (01:00→17:01)
[2018-08-11] MEDS: Sod Chloride 0.9% Inj 1,000 ML IV.CONT SCH ×3 (01:03→21:53)
[2018-08-11] MEDS: Insulin NovoLOG Aspart Correctional Sugar Inj SQ SCH ×5 (03:57→21:53)
[2018-08-11] MEDS: Potassium Chlor 20 mEq Premix 20 MEQ/100 ML PIGGYBACK IV.SIG PRN ×4 (04:43→11:45)
[2018-08-11 05:11] LABS: Baso # (Auto) 0.1 th/mm3 (0.0-0.2); Baso % (Auto) 0.9 % (0.0-2.0); Eos # (Auto) 0.1 th/mm3 (0.0-0.4); Eos % (Auto) 1.3 % (0.0-4.0); Hematocrit 42.6 % (39.0-51.0); Lymph # (Auto) 1.3 th/mm3 (1.0-4.8); Lymph % (Auto) 13.5 % (9.0-44.0); Mean Corpuscular HGB Conc 35.3 % (32.0-36.0); Mean Corpuscular Volume 85.1 fL (80.0-100.0); Mean Platelet Volume 9.3 fL (7.0-11.0); Mono # (Auto) 0.9 th/mm3 (0.0-0.9); Mono % (Auto) 8.8 % (0.0-8.0); Neut # (Auto) 7.3 th/mm3 (1.8-7.7); Neut % (Auto) 75.5 % (16.0-70.0); Platelet Count 215 th/mm3 (150-450); Red Blood Count 5.01 mil/mm3 (4.50-5.90); Red Cell Distribution Width 13.1 % (11.6-17.2); White Blood Count 9.7 th/mm3 (4.0-11.0)
[2018-08-11] MEDS: Chlorhexidine Gluconate 2% 1 Pack (2 Cloths) TOPICAL SCH (05:12)
[2018-08-11] MEDS ORDERED: Pharmacy Ordered Lab Info OTHER ONE (07:45)
--- NOTE | 2018-08-11 08:31 | P.PNNEU ---
Subjective Active Medications: Active Medications Acetaminophen (Tylenol) 650 mg PO Q6H PRN PRN Reason: PAIN 1-10 AND/OR FEVER >101F Al Hydroxide/Mg Hydroxide (Milk Of Shruti French) 30 ml PO Q12H PRN PRN Reason: Mild Constipation Albuterol (Duoneb Neb (Prn)) 1 ampul NEB Q2HR NEB PRN PRN Reason: WHEEZING Bisacodyl (Dulcolax Supp) 10 mg RECTAL DAILY PRN PRN Reason: SEVERE CONSITIPATION Chlorhexidine Gluconate (Chlorhexidine 2% Cloth) 3 pack TOPICAL DAILY@0400 FABIOLA Stop: 08/13/18 03:59 Last Admin: 08/11/18 05:12 Dose: 3 pack Chlorhexidine Gluconate (Chlorhexidine 2% Cloth) 3 pack TOPICAL DAILY@0400 PRN PRN Reason: Extra cloth needed Stop: 08/13/18 03:59 Dextrose (D50w Vial) 50 ml IV.PUSH UNSCH PRN PRN Reason: PER HYPOGLYCEMIA PROTOCOL Enalaprilat (Vasotec Inj) 2.5 mg IV.PUSH Q6H PRN PRN Reason: SBP>160, DBP>90 Last Admin: 08/10/18 16:00 Dose: 2.5 mg Famotidine (Pepcid Pf Inj) 20 mg IV.PUSH Q12HR F[facility]IOLA Last Admin: 08/10/18 20:38 Dose: 20 mg Glucagon (Glucagon Inj) 1 mg OTHER PRN PRN PRN Reason: for Hypoglycemia Protocol Hydralazine HCl (Apresoline Inj) 20 mg IV.PUSH Q4H PRN PRN Reason: HYPERTENSION Last Admin: 08/10/18 22:08 Dose: 20 mg Magnesium Sulfate 4 gm/ Sodium (Chloride) 100 mls @ 50 mls/hr IV.SIG UNSCH PRN PRN Reason: For Magnesium 0.9 - 1.1 mg/dL Magnesium Sulfate 2 gm/ Sodium (Chloride) 100 mls @ 50 mls/hr IV.SIG UNSCH PRN PRN Reason: For Magnesium 1.2 - 1.6 mg/dL Potassium Chloride (Kcl 40 Meq Premix Inj) 40 meq in 100 mls @ 25 mls/hr IV.SIG Q2H PRN PRN Reason: For Potassium 2.8 - 3.2 mEq/L Potassium Chloride (Kcl 20 Meq Premix Inj) 20 meq in 100 mls @ 50 mls/hr IV.SIG Q2H PRN PRN Reason: For Potassium 3.3 - 3.5 mEq/L Potassium Chloride (Kcl 40 Meq Premix Inj) 40 meq in 100 mls @ 25 mls/hr IV.SIG UNSCH PRN PRN Reason: For Potassium 3.3 - 3.5 mEq/L Potassium Chloride (Kcl 20 Meq Premix Inj) 20 meq in 100 mls @ 50 mls/hr IV.SIG Q2H PRN PRN Reason: For Potassium 2.8 - 3.2 mEq/L Last Admin: 08/11/18 06:25 Dose: 50 mls/hr Potassium Phosphate 30 mmol/ (Sodium Chloride) 260 mls @ 42 mls/hr IV.SIG UNSCH PRN PRN Reason: SEE LABEL COMMENTS Sodium Phosphate 30 mmol/ (Sodium Chloride) 260 mls @ 42 mls/hr IV.SIG UNSCH PRN PRN Reason: For Phosphorus < 2.5 mg/dL Nicardipine HCl 25 mg/ Sodium (Chloride) 250 mls @ 50 mls/hr IV.CONT TITRATE FABIOLA; Protocol Last Titration: 08/08/18 21:51 Dose: Infused Sodium Chloride (Ns Inj) 1,000 mls @ 100 mls/hr IV.CONT .Q10H F[facility]IOLA Last Admin: 08/11/18 01:03 Dose: 100 mls/hr Piperacillin/Tazobactam/Dextrose (Zosyn 3.375 Gm Premix) 50 mls @ 100 mls/hr IV.SIG Q6H FABIOLA Last Infusion: 08/11/18 06:34 Dose: Infused Vancomycin HCl 2,250 mg/ (Sodium Chloride) 522.5 mls @ 250 mls/hr IV.SIG Q12H FABIOLA Last Infusion: 08/11/18 05:12 Dose: Infused Insulin Aspart (Novolog Insulin Correctional Sugar Inj) 0 unit SQ ACHS AND 3AM FABIOLA; Protocol Last Admin: 08/11/18 03:57 Dose: Not Given Lactulose (Lactulose Liq) 30 ml PO DAILY PRN PRN Reason: SEVERE CONSITIPATION Lisinopril (Prinivil) 10 mg PO BID F[facility]IOLA Last Admin: 08/10/18 20:38 Dose: 10 mg Magnesium Oxide (Mag-Ox) 800 mg PO UNSCH PRN PRN Reason: For Magnesium 1.2 - 1.6 mg/dL Metoprolol Tartrate (Lopressor) 25 mg PO BID [facility] Last Admin: 08/10/18 20:39 Dose: 25 mg Nifedipine (Procardia) 10 mg PO TID [facility] Last Admin: 08/10/18 17:20 Dose: 10 mg Ondansetron HCl (Zofran Inj) 4 mg IV.PUSH Q6H PRN PRN Reason: NAUSEA OR VOMITING Pharmacy Profile Note (Vancomycin Consult Pharmacy) 1 each OTHER UNSCH PRN PRN Reason: Pharmacy to dose Potassium Bicarb/Potassium Chloride (K-Lyte Cl Eff) 50 meq PO UNSCH PRN PRN Reason: For Potassium 3.3 - 3.5 mEq/L Last Admin: 08/09/18 10:00 Dose: 50 meq Potassium Phosphate (K-Phos Original) 2,000 mg PO UNSCH PRN PRN Reason: SEE LABEL COMMENTS Potassium Phosphate (K-Phos Original) 2,000 mg PO Q4H PRN PRN Reason: Phosphorus Less Than 2.5 mg/dL Senna/Docusate Sodium (Sobeida-Colace) 1 tab PO BID [facility] Last Admin: 08/10/18 20:38 Dose: 1 tab Sennosides (Senokot) 17.2 mg PO Q12H PRN PRN Reason: Moderate Constipation Sodium Chloride (Ns Flush) 2 ml IV.FLUSH BID [facility] Last Admin: 08/10/18 20:39 Dose: 2 ml Sodium Chloride (Ns Flush) 2 ml IV.FLUSH PRN PRN PRN Reason: FLUSH AFTER USING IV ACCESS Allergies/Adverse Reactions: Allergies Allergy/AdvReac Type Severity Reaction Status Date / Time No Known Allergies Allergy Verified 08/07/18 09:59 Physical Exam Vital signs: Vital Signs 08/10/18 08:30 08/10/18 09:00 08/10/18 09:56 Temperature Pulse Rate 85 92 H 88 Respiratory Rate 18 20 14 Blood Pressure 169/91 H 163/91 H 139/90 Pulse Oximetry 92 L 93 L 93 L 08/10/18 10:00 08/10/18 11:21 08/10/18 11:22 Temperature Pulse Rate 101 H 85 82 Respiratory Rate 23 21 24 Blood Pressure 139/96 H 150/97 H Pulse Oximetry 91 L 90 L 93 L 08/10/18 11:26 08/10/18 11:30 08/10/18 12:00 Temperature 98.2 F Pulse Rate 88 82 Respiratory Rate 17 19 Blood Pressure 160/103 H 154/95 H Pulse Oximetry 95 93 L 94 L 08/10/18 12:30 08/10/18 13:00 08/10/18 13:11 Temperature Pulse Rate 85 94 H 92 H Respiratory Rate 17 22 21 Blood Pressure 163/102 H 137/85 137/86 Pulse Oximetry 94 L 91 L 92 L 08/10/18 13:30 08/10/18 14:00 08/10/18 14:31 Temperature Pulse Rate 93 H 94 H 86 Respiratory Rate 20 18 21 Blood Pressure 143/86 H 131/83 148/89 H Pulse Oximetry 92 L 92 L 94 L 08/10/18 15:00 08/10/18 15:01 08/10/18 15:15 Temperature Pulse Rate 110 H 111 H 87 Respiratory Rate 44 H 30 H 20 Blood Pressure 183/119 H 167/97 H Pulse Oximetry 94 L 94 L 08/10/18 15:24 08/10/18 15:31 08/10/18 15:55 Temperature Pulse Rate 85 81 88 Respiratory Rate 20 19 26 H Blood Pressure 162/93 H 159/123 H 177/104 H Pulse Oximetry 96 95 95 08/10/18 16:00 08/10/18 16:30 08/10/18 17:00 Temperature 98.7 F Pulse Rate 83 88 78 Respiratory Rate 21 21 18 Blood Pressure 167/99 H 182/102 H 178/117 H Pulse Oximetry 96 95 95 08/10/18 17:16 08/10/18 17:30 08/10/18 18:00 Temperature Pulse Rate 85 85 97 H Respiratory Rate 21 22 22 Blood Pressure 160/106 H 167/108 H 144/90 H Pulse Oximetry 95 96 93 L 08/10/18 19:00 08/10/18 20:00 08/10/18 21:00 Temperature 98.8 F 98.8 F 98.8 F Pulse Rate 97 H 92 H 97 H Respiratory Rate 22 19 22 Blood Pressure 156/94 H 167/93 H 156/94 H Pulse Oximetry 98 93 L 98 08/10/18 21:31 08/10/18 22:00 08/10/18 23:00 Temperature 98.8 F 98.8 F Pulse Rate 78 78 Respiratory Rate 20 20 Blood Pressure 156/94 H 156/94 H Pulse Oximetry 97 98 98 08/11/18 00:00 08/11/18 01:00 08/11/18 02:00 Temperature 98.7 F 98.7 F 98.7 F Pulse Rate 91 H 89 82 Respiratory Rate 19 21 18 Blood Pressure 177/95 H 180/93 H 158/86 H Pulse Oximetry 98 98 94 L 08/11/18 03:00 08/11/18 04:00 08/11/18 05:00 Temperature 98.5 F 98.3 F 98.5 F Pulse Rate 90 85 77 Respiratory Rate 17 16 17 Blood Pressure 152/93 H 166/94 H 169/92 H Pulse Oximetry 94 L 94 L 94 L 08/11/18 06:00 Temperature 98.7 F Pulse Rate 75 Respiratory Rate 17 Blood Pressure 171/99 H Pulse Oximetry 94 L Intake & Output 08/10/18 08/11/18 08/11/18 18:59 06:59 18:59 Intake Total 2472.5 / 2472.5 1782.5 / 1782.5 Output Total 2124 / 2124 1200 / 1200 Balance 347.5 / 347.5 582.5 / 582.5 Weight 123.3 kg Intake: IV 1922.5 / 1922.5 1722.5 / 1722.5 NS Inj 1,000 ML @ 100 mls/hr IV 1000 / 1000 1000 / 1000 .CONT .Q10H FABIOLA Rx#:[id number] Zosyn 3.375 GM Premix 50 ML @ 100 / 100 100 / 100 100 mls/hr IV.SIG Q6H FABIOLA Rx#: [id number] KCl 20 mEq Premix Inj 20 meq In 300 / 300 100 / 100 100 ml @ 50 mls/hr IV.SIG Q2H PRN Rx#:[id number] Vancomycin Inj 2,250 MG In NS 522.5 / 522.5 522.5 / 522.5 Inj 500 ML @ 250 mls/hr IV.SIG Q12H FABIOLA Rx#:[id number] Oral 550 / 550 60 / 60 Output: Urine 2124 1200 / 1200 Emesis 0 / 0 Other: # Voids 3 # Bowel Movements 0 0 Narrative: sr awake lert no new c/o speech nl Objective Laboratory Results - last 24 hr 12/02/2008/10/18 08/10/18 05:15 05:15 08:43 WBC RBC Hgb Hct MCV MCH MCHC RDW Plt Count MPV Neut % (Auto) Lymph % (Auto) Crook % (Auto) Eos % (Auto) Baso % (Auto) Neut # (Auto) Lymph # (Auto) Crook # (Auto) Eos # (Auto) Baso # (Auto) WBC Differential Differential Comment ESR Potassium POC Glucose 133 H Hemoglobin A1c 8.1 H Magnesium 2.1 Ammonia Total Protein (PEP) Albumin (PEP) Albumin/Globulin Ratio Itzva-2-Sknbukkds Ufcpy-0-Ieovxvgvu Beta Globulins Gamma Globulins Vitamin B12 Free T4 Urine Opiates Screen Ur Barbiturates Screen Ur Amphetamines Screen U Benzodiazepines Scrn Urine Cocaine Screen U Cannabinoids Screen Rheumatoid Factor Scrn Rheumatoid Factor Titer 08/10/18 08/10/18 08/10/18 09:22 09:22 12:23 WBC RBC Hgb Hct MCV MCH MCHC RDW Plt Count MPV Neut % (Auto) Lymph % (Auto) Crook % (Auto) Eos % (Auto) Baso % (Auto) Neut # (Auto) Lymph # (Auto) Crook # (Auto) Eos # (Auto) Baso # (Auto) WBC Differential Differential Comment ESR 5 Potassium POC Glucose 131 H Hemoglobin A1c Magnesium Ammonia Total Protein (PEP) 7.5 Albumin (PEP) 4.17 Albumin/Globulin Ratio 1.25 L Pzjhi-9-Fesrnyuma 0.26 Xukke-3-Hhobccsqy 0.92 Beta Globulins 0.98 Gamma Globulins 1.17 Vitamin B12 554 Free T4 Urine Opiates Screen Ur Barbiturates Screen Ur Amphetamines Screen U Benzodiazepines Scrn Urine Cocaine Screen U Cannabinoids Screen Rheumatoid Factor Scrn Negative Rheumatoid Factor Titer Not Reportable 08/10/18 08/10/18 08/10/18 12:50 17:20 20:33 WBC RBC Hgb Hct MCV MCH MCHC RDW Plt Count MPV Neut % (Auto) Lymph % (Auto) Crook % (Auto) Eos % (Auto) Baso % (Auto) Neut # (Auto) Lymph # (Auto) Crook # (Auto) Eos # (Auto) Baso # (Auto) WBC Differential Differential Comment ESR Potassium POC Glucose 117 H 176 H Hemoglobin A1c Magnesium Ammonia Total Protein (PEP) Albumin (PEP) Albumin/Globulin Ratio Hfdcc-3-Crnaybjoy Vbulf-8-Mrsetkvgd Beta Globulins Gamma Globulins Vitamin B12 Free T4 Urine Opiates Screen Neg Ur Barbiturates Screen Neg Ur Amphetamines Screen Neg U Benzodiazepines Scrn Neg Urine Cocaine Screen Neg U Cannabinoids Screen Neg Rheumatoid Factor Scrn Rheumatoid Factor Titer 08/10/18 08/10/18 08/11/18 22:14 22:35 03:22 WBC RBC Hgb Hct MCV MCH MCHC RDW Plt Count MPV Neut % (Auto) Lymph % (Auto) Crook % (Auto) Eos % (Auto) Baso % (Auto) Neut # (Auto) Lymph # (Auto) Crook # (Auto) Eos # (Auto) Baso # (Auto) WBC Differential Differential Comment ESR Potassium 3.2 L POC Glucose 121 H 125 H Hemoglobin A1c Magnesium Ammonia Total Protein (PEP) Albumin (PEP) Albumin/Globulin Ratio Bozmn-2-Fujgezdmh Vketc-6-Dazqkczaq Beta Globulins Gamma Globulins Vitamin B12 Free T4 Urine Opiates Screen Ur Barbiturates Screen Ur Amphetamines Screen U Benzodiazepines Scrn Urine Cocaine Screen U Cannabinoids Screen Rheumatoid Factor Scrn Rheumatoid Factor Titer 08/11/18 08/11/18 08/11/18 04:32 04:32 04:32 WBC 9.7 RBC 5.01 Hgb 15.0 Hct 42.6 MCV 85.1 MCH 30.0 MCHC 35.3 RDW 13.1 Plt Count 215 MPV 9.3 Neut % (Auto) 75.5 H Lymph % (Auto) 13.5 Crook % (Auto) 8.8 H Eos % (Auto) 1.3 Baso % (Auto) 0.9 Neut # (Auto) 7.3 Lymph # (Auto) 1.3 Crook # (Auto) 0.9 Eos # (Auto) 0.1 Baso # (Auto) 0.1 WBC Differential . Differential Comment Auto diff final ESR Potassium POC Glucose Hemoglobin A1c Magnesium Ammonia 27 Total Protein (PEP) Albumin (PEP) Albumin/Globulin Ratio Bpdhe-3-Lffddfdow Nzmjf-0-Fjrlhuhqo Beta Globulins Gamma Globulins Vitamin B12 Free T4 1.10 Urine Opiates Screen Ur Barbiturates Screen Ur Amphetamines Screen U Benzodiazepines Scrn Urine Cocaine Screen U Cannabinoids Screen Rheumatoid Factor Scrn Rheumatoid Factor Titer Microbiology 08/07/18 19:00 Aerobic Blood Culture - Preliminary Blood - Peripheral No growth in 3 days Anaerobic Blood Culture - Preliminary No growth in 3 days 08/07/18 19:38 Aerobic Blood Culture - Preliminary Blood - Peripheral No growth in 3 days Anaerobic Blood Culture - Preliminary No growth in 3 days Review/Management - Review/Management Plan: [facility] 08/10/18 mri shows r cerebellar peduncle diffusion abn and two tiny left wm ones probably small acute cva but cannot say for sure with wm changes perivent and old wm spots could be MS ray albright plan is mra/a/av his echo neg and trop neg hypercoag screen and LP to look for ms aurelia hold blood thinners for now 08/11/18 mra/a /v neg for aurelia today i think more than likely these are cva and much less likely mS fu aurelia results and hypercoag screen if aurelia neg will do LP
[2018-08-11] MEDS: Metoprolol Tartrate 25 MG Tablet PO SCH ×2 (08:44→20:09)
[2018-08-11] MEDS: Lisinopril 5 MG Tablet PO SCH ×2 (08:44→20:09)
[2018-08-11] MEDS: Famotidine PF Inj 20 MG/2 ML Vial IV.PUSH SCH ×2 (08:44→20:09)
[2018-08-11] MEDS: NIFEdipine 10 MG Capsule PO SCH ×3 (08:44→17:01)
[2018-08-11] MEDS: Senna/Docusate Sodium 8.6/50 MG Tablet PO SCH ×2 (08:44→20:09)
[2018-08-11 09:02] LABS: Albumin 3.3 g/dL (3.4-5.0); Anion Gap 7 meq/L (5-15); Aspartate Aminotransferase 16 U/L (15-37); Blood Urea Nitrogen 12 mg/dL (7-18); Calcium 8.5 mg/dL (8.5-10.1); Carbon Dioxide 26.9 meq/L (21.0-32.0); Chloride 105 meq/L (98-107); Glomerular Filtration Rate 82 mL/min (>89); Glucose,Random 106 mg/dL (74-106); Magnesium 2.2 mg/dL (1.5-2.5); Potassium 3.7 meq/L (3.5-5.1); Sodium 139 meq/L (136-145)
[2018-08-11] MEDS: hydrALAZINE HCl Inj 20 MG/ML Vial IV.PUSH PRN ×3 (09:15→21:54)
[2018-08-11 09:20] LABS: Alanine Aminotransferase 25 U/L (12-78); Alkaline Phosphatase 57 U/L (45-117); Phosphorus 3.7 mg/dL (2.5-4.9); Total Protein 7.1 g/dL (6.4-8.2); Vancomycin,Trough 12.4 mcg/mL (5.0-10.0)
--- NOTE | 2018-08-11 11:15 | ECHRPT ---
Indication: CVA/TIA CONCLUSIONS 1.) Normal lv size, wall thickness, ef=60% 2.) Left atrial appendage appears normal. 3.) Trace mitral valve regurgitation. 4.) Negative saline contrast bubble study and color dopler evaluation for the presence of atrial or ventricular shunt 5.) Normal appearing throacic aorta. BP: / HR: Rhythm: Technical Quality: Medications Complications Proc. Components Reginald Hinson MD, FACC, FSCAI (Electronically Signed) Final Date:11 August 2018 11:14
--- NOTE | 2018-08-11 11:49 | P.PNIM ---
Subjective Interval history: Chief Complaint: Nausea and Vomiting/ Blurry vision History of Present Illness: This is a 48-year-old male that presented to the [facility] [place] emergency center via EMS this morning with complaints of having diarrhea approximately 1 week ago. He woke up this morning with complaints of blurry vision and nausea and vomiting. Patient upon presentation stated that the onset was 4 hours prior to arrival which point he was diaphoretic with a systolic blood pressure in the 200s. a nicardipine infusion was initiated in the ED. The patient provided a history of being diagnosed a diabetic and previously on metformin but stopped 3 or 4 years ago stating the diabetes went away imaging studies were attempted to be performed the brain and abdomen however the patient refused. Per history from emergency room physician the patient has a history of noncompliance, and poorly controlled diabetes mellitus. laboratory studies were obtained showing a slight leukocytosis with a WBC count of 11.2 patient was empirically given vancomycin and Zosyn. Critical care medicine was consulted, and the patient was transferred to [facility]. Upon presentation the patient's blood pressure was noted to be 160/102 the patient was noted to be lethargic initially refusing to have imaging studies done secondary to claustrophobia but subsequently agreeing to stat imaging studies. 12/4: Afebrile. No acute events overnight. Resolution of nausea and vomiting. The patient continues on normal saline 100 cc, Hgb A1c elevated notably patient is diabetic noncompliant. The patient expresses an appetite carb controlled diabetic diet ordered. Blood glucose glucose levels ranging in the 140s-200. Sliding scale insulin every 4 hours added to medication regimen. Patient continues on nicardipine infusion Lopressor added to medication regimen with continue weaning of nicardipine. 12-5 F/up encephalopathy, uncontrolled diabetes Patient is more awake and alert however he is noted with slurred speech. He does not have any motor deficit or sensory deficit. No change in vision. Nausea resolved he is able to eat and able to swallow. No fever or chills. No cough. Patient is anxious on and off. Patient he says he has a history of diabetes however he is not taking medications. Advised compliance with medications and dietary changes. Patient was counseled at length 12-6 HAD MORE STUDIES TODAY LOOKS LIKE STROKES ON MRI DW RN AND PT AND CM SEEN BY NEUROLOGY CONSULTED CARDIOLOGY PER NEUROLOGY OFF CARDENE DRIP NEEDS DM EDUCATION 12-7 HAD AYSHA NEGATIVE FOR ANYTHING OTHER THAN TRACE MITRAL VALVE REGURGITATION- - EF OF 60% WILL NEED LP PER DR SILVA NOTE STILL HAS SLURRED SPEECH ON AND OFF DW RN AND PT AND CARDIOLOGY Physical Exam Vital signs: Vital Signs 08/10/18 12:00 08/10/18 12:30 08/10/18 13:00 Temperature 98.2 F Pulse Rate 82 85 94 H Respiratory Rate 19 17 22 Blood Pressure 154/95 H 163/102 H 137/85 Pulse Oximetry 94 L 94 L 91 L 08/10/18 13:11 08/10/18 13:30 08/10/18 14:00 Temperature Pulse Rate 92 H 93 H 94 H Respiratory Rate 21 20 18 Blood Pressure 137/86 143/86 H 131/83 Pulse Oximetry 92 L 92 L 92 L 08/10/18 14:31 08/10/18 15:00 08/10/18 15:01 Temperature Pulse Rate 86 110 H 111 H Respiratory Rate 21 44 H 30 H Blood Pressure 148/89 H 183/119 H Pulse Oximetry 94 L 94 L 08/10/18 15:15 08/10/18 15:24 08/10/18 15:31 Temperature Pulse Rate 87 85 81 Respiratory Rate 20 20 19 Blood Pressure 167/97 H 162/93 H 159/123 H Pulse Oximetry 94 L 96 95 08/10/18 15:55 08/10/18 16:00 08/10/18 16:30 Temperature 98.7 F Pulse Rate 88 83 88 Respiratory Rate 26 H 21 21 Blood Pressure 177/104 H 167/99 H 182/102 H Pulse Oximetry 95 96 95 08/10/18 17:00 08/10/18 17:16 08/10/18 17:30 Temperature Pulse Rate 78 85 85 Respiratory Rate 18 21 22 Blood Pressure 178/117 H 160/106 H 167/108 H Pulse Oximetry 95 95 96 08/10/18 18:00 08/10/18 19:00 08/10/18 20:00 Temperature 98.8 F 98.8 F Pulse Rate 97 H 97 H 92 H Respiratory Rate 22 22 19 Blood Pressure 144/90 H 156/94 H 167/93 H Pulse Oximetry 93 L 98 93 L 08/10/18 21:00 18 21:31 08/10/18 22:00 Temperature 98.8 F 98.8 F Pulse Rate 97 H 78 Respiratory Rate 22 20 Blood Pressure 156/94 H 156/94 H Pulse Oximetry 98 97 98 08/10/18 23:00 08/11/18 00:00 08/11/18 01:00 Temperature 98.8 F 98.7 F 98.7 F Pulse Rate 78 91 H 89 Respiratory Rate 20 19 21 Blood Pressure 156/94 H 177/95 H 180/93 H Pulse Oximetry 98 98 98 08/11/18 02:00 08/11/18 03:00 08/11/18 04:00 Temperature 98.7 F 98.5 F 98.3 F Pulse Rate 82 90 85 Respiratory Rate 18 17 16 Blood Pressure 158/86 H 152/93 H 166/94 H Pulse Oximetry 94 L 94 L 94 L 08/11/18 05:00 08/11/18 06:00 08/11/18 07:00 Temperature 98.5 F 98.7 F Pulse Rate 77 75 75 Respiratory Rate 17 17 15 Blood Pressure 169/92 H 171/99 H 167/93 H Pulse Oximetry 94 L 94 L 95 08/11/18 07:39 08/11/18 08:00 08/11/18 08:30 Temperature Pulse Rate 83 82 80 Respiratory Rate 20 20 17 Blood Pressure 172/98 H 160/92 H 167/95 H Pulse Oximetry 94 L 94 L 96 08/11/18 09:00 08/11/18 09:10 08/11/18 09:22 Temperature Pulse Rate 80 81 105 H Respiratory Rate 19 20 20 Blood Pressure 178/102 H 187/107 H 188/95 H Pulse Oximetry 94 L 95 95 08/11/18 09:30 08/11/18 09:44 08/11/18 09:48 Temperature Pulse Rate 108 H 101 H 97 H Respiratory Rate 19 22 19 Blood Pressure 186/76 H 156/79 H 165/83 H Pulse Oximetry 93 L 92 L 94 L 08/11/18 09:52 08/11/18 09:56 08/11/18 10:00 Temperature Pulse Rate 90 99 H 110 H Respiratory Rate 22 16 17 Blood Pressure 149/86 H 156/83 H 169/73 H Pulse Oximetry 93 L 94 L 93 L 08/11/18 10:04 08/11/18 10:09 08/11/18 10:11 Temperature Pulse Rate 105 H 96 H 92 H Respiratory Rate 23 24 23 Blood Pressure 158/77 H 133/77 Pulse Oximetry 94 L 93 L 96 08/11/18 10:12 08/11/18 10:54 Temperature Pulse Rate Respiratory Rate Blood Pressure 138/72 Pulse Oximetry 95 Intake & Output 08/10/18 08/11/18 08/11/18 18:59 06:59 18:59 Intake Total 2472.5 / 2472.5 1782.5 / 1782.5 100 / 100 Output Total 2124 / 2124 1200 / 1200 625 / 625 Balance 347.5 / 347.5 582.5 / 582.5 -525 / -525 Weight 123.3 kg Intake: IV 1922.5 / 1922.5 1722.5 / 1722.5 100 / 100 NS Inj 1,000 ML @ 100 mls/hr IV 1000 / 1000 1000 / 1000 .CONT .Q10H [facility] Rx#:[id number] Zosyn 3.375 GM Premix 50 ML @ 100 / 100 100 / 100 100 mls/hr IV.SIG Q6H FABIOLA Rx#: [id number] KCl 20 mEq Premix Inj 20 meq In 300 / 300 100 / 100 100 / 100 100 ml @ 50 mls/hr IV.SIG Q2H PRN Rx#:[id number] Vancomycin Inj 2,250 MG In NS 522.5 / 522.5 522.5 / 522.5 Inj 500 ML @ 250 mls/hr IV.SIG Q12H FABIOLA Rx#:[id number] Oral 550 / 550 60 / 60 Output: Urine 2124 / 2124 1200 / 1200 625 / 625 Emesis 0 / 0 Other: # Voids 3 # Bowel Movements 0 0 Narrative: GENERAL: This is obese male patient of stated age, in no acute distress SKIN: Warm and dry. HEAD: Atraumatic. Normocephalic. EYES: Pupils equal and round. No scleral icterus. No injection or drainage. ENT: No nasal bleeding or discharge. Mucous membranes pink and moist. NECK: Trachea midline. No JVD. CARDIOVASCULAR: Normal rate, regular rhythm. S1, S2 NO S3 OR S4 RESPIRATORY: No accessory muscle use. Clear to auscultation. Breath sounds equal bilaterally. GASTROINTESTINAL: Abdomen soft, non-tender, obese ,nondistended. No guarding. MUSCULOSKELETAL: Extremities without clubbing, cyanosis, or edema. No obvious deformities. NEUROLOGICAL: Awake and alert. No gross focal/sensory deficits. Follows commands in all 4 extremities. Results - Labs CBC & Chem 7: 08/11/18 04:32 08/11/18 07:35 Laboratory Results - last 24 hr 08/10/18 08/10/18 08/10/18 05:15 05:15 09:22 WBC RBC Hgb Hct MCV MCH MCHC RDW Plt Count MPV Neut % (Auto) Lymph % (Auto) Cross % (Auto) Eos % (Auto) Baso % (Auto) Neut # (Auto) Lymph # (Auto) Cross # (Auto) Eos # (Auto) Baso # (Auto) WBC Differential Differential Comment Sodium Potassium Chloride Carbon Dioxide Anion Gap BUN Creatinine Estimated GFR POC Glucose Random Glucose Hemoglobin A1c 8.1 H Calcium Phosphorus Magnesium 2.1 Total Bilirubin AST ALT Alkaline Phosphatase Ammonia Total Protein Albumin Albumin (PEP) 4.17 Albumin/Globulin Ratio 1.25 L Xnhlc-2-Qxbskbtxw 0.26 Wpimp-8-Dxbxtvyos 0.92 Beta Globulins 0.98 Gamma Globulins 1.17 TSH Free T4 Vancomycin Trough Urine Opiates Screen Ur Barbiturates Screen Ur Amphetamines Screen U Benzodiazepines Scrn Urine Cocaine Screen U Cannabinoids Screen 08/10/18 08/10/18 08/10/18 12:23 12:50 17:20 WBC RBC Hgb Hct MCV MCH MCHC RDW Plt Count MPV Neut % (Auto) Lymph % (Auto) Cross % (Auto) Eos % (Auto) Baso % (Auto) Neut # (Auto) Lymph # (Auto) Cross # (Auto) Eos # (Auto) Baso # (Auto) WBC Differential Differential Comment Sodium Potassium Chloride Carbon Dioxide Anion Gap BUN Creatinine Estimated GFR POC Glucose 131 H 117 H Random Glucose Hemoglobin A1c Calcium Phosphorus Magnesium Total Bilirubin AST ALT Alkaline Phosphatase Ammonia Total Protein Albumin Albumin (PEP) Albumin/Globulin Ratio Cgtfh-7-Szfkkztkn Svuoz-1-Yosbnkytw Beta Globulins Gamma Globulins TSH Free T4 Vancomycin Trough Urine Opiates Screen Neg Ur Barbiturates Screen Neg Ur Amphetamines Screen Neg U Benzodiazepines Scrn Neg Urine Cocaine Screen Neg U Cannabinoids Screen Neg 08/10/18 08/10/18 08/10/18 20:33 22:14 22:35 WBC RBC Hgb Hct MCV MCH MCHC RDW Plt Count MPV Neut % (Auto) Lymph % (Auto) Cross % (Auto) Eos % (Auto) Baso % (Auto) Neut # (Auto) Lymph # (Auto) Cross # (Auto) Eos # (Auto) Baso # (Auto) WBC Differential Differential Comment Sodium Potassium 3.2 L Chloride Carbon Dioxide Anion Gap BUN Creatinine Estimated GFR POC Glucose 176 H 121 H Random Glucose Hemoglobin A1c Calcium Phosphorus Magnesium Total Bilirubin AST ALT Alkaline Phosphatase Ammonia Total Protein Albumin Albumin (PEP) Albumin/Globulin Ratio Efqro-8-Kqsrwiaoy Vduxk-0-Woklzwpcj Beta Globulins Gamma Globulins TSH Free T4 Vancomycin Trough Urine Opiates Screen Ur Barbiturates Screen Ur Amphetamines Screen U Benzodiazepines Scrn Urine Cocaine Screen U Cannabinoids Screen 08/11/18 08/11/18 08/11/18 03:22 04:32 04:32 WBC 9.7 RBC 5.01 Hgb 15.0 Hct 42.6 MCV 85.1 MCH 30.0 MCHC 35.3 RDW 13.1 Plt Count 215 MPV 9.3 Neut % (Auto) 75.5 H Lymph % (Auto) 13.5 Cross % (Auto) 8.8 H Eos % (Auto) 1.3 Baso % (Auto) 0.9 Neut # (Auto) 7.3 Lymph # (Auto) 1.3 Cross # (Auto) 0.9 Eos # (Auto) 0.1 Baso # (Auto) 0.1 WBC Differential . Differential Comment Auto diff final Sodium Potassium Chloride Carbon Dioxide Anion Gap BUN Creatinine Estimated GFR POC Glucose 125 H Random Glucose Hemoglobin A1c Calcium Phosphorus Magnesium Total Bilirubin AST ALT Alkaline Phosphatase Ammonia Total Protein Albumin Albumin (PEP) Albumin/Globulin Ratio Nduja-8-Wtirjkaup Jnihi-1-Pbdncoczc Beta Globulins Gamma Globulins TSH Free T4 1.10 Vancomycin Trough Urine Opiates Screen Ur Barbiturates Screen Ur Amphetamines Screen U Benzodiazepines Scrn Urine Cocaine Screen U Cannabinoids Screen 08/11/18 08/11/18 04:32 07:35 WBC RBC Hgb Hct MCV MCH MCHC RDW Plt Count MPV Neut % (Auto) Lymph % (Auto) Cross % (Auto) Eos % (Auto) Baso % (Auto) Neut # (Auto) Lymph # (Auto) Cross # (Auto) Eos # (Auto) Baso # (Auto) WBC Differential Differential Comment Sodium 139 Potassium 3.7 Chloride 105 Carbon Dioxide 26.9 Anion Gap 7 BUN 12 Creatinine 0.98 Estimated GFR 82 L POC Glucose Random Glucose 106 Hemoglobin A1c Calcium 8.5 Phosphorus 3.7 Magnesium 2.2 Total Bilirubin 1.2 H AST 16 ALT 25 Alkaline Phosphatase 57 Ammonia 27 Total Protein 7.1 D Albumin 3.3 L Albumin (PEP) Albumin/Globulin Ratio Argjj-1-Zlzjnmzfv Bcyix-9-Tnfhqeguh Beta Globulins Gamma Globulins TSH 1.950 Free T4 Vancomycin Trough 12.4 H Urine Opiates Screen Ur Barbiturates Screen Ur Amphetamines Screen U Benzodiazepines Scrn Urine Cocaine Screen U Cannabinoids Screen Microbiology 08/07/18 19:00 Blood - Peripheral Aerobic Blood Culture - Preliminary No growth in 4 days 08/07/18 19:00 Blood - Peripheral Anaerobic Blood Culture - Preliminary No growth in 4 days 08/07/18 19:38 Blood - Peripheral Aerobic Blood Culture - Preliminary No growth in 4 days 08/07/18 19:38 Blood - Peripheral Anaerobic Blood Culture - Preliminary No growth in 4 days - Imaging Impressions Neck MRA 08/10/18 00:00 CONCLUSION: Negative MRA of the neck. Percent stenosis is calculated using the diameter of the stenotic region over the diameter of the normal distal internal carotid artery - Procedures AYSHA 12-7 Assessment and Plan - Plan Assessment: This is a 48-year-old male with a history of noncompliance presenting with lethargy nausea and vomiting concern for neurological changes possible increasing intracranial pressure, as well as intra-abdominal dysfunction refusing imaging. Patient's lethargy very concerning in the setting of nausea and vomiting and hypertensive urgency. Admit to ICU the patient is critically ill obtain imaging and laboratory studies. Plan by systems: Neurologic: Metabolic encephalopathy, metabolic? Altered mental status -Obtain stat CT of the brain -Ammonia level, TSH level -Urine tox screen negative Respiratory: -Obtain ABG, concern for CO2 narcosis -Duo nebs as needed -Supplement with nasal cannula O2 wean as tolerated to maintain O2 saturation 92 % -Avoid all sedative type medication -Neurochecks per ICU protocol Cardiovascular: Hypertensive urgency -Begin Lopressor 25 mg twice daily, wean off nicardipine infusion -Labetalol and hydralazine as needed -Monitor serial troponins negative Renal: Hypokalemia Replete per electrolyte protocol -- Strict I/Os WILL REPLACE AGAIN FEN/GI: Diabetes mellitus Obesity Nausea and vomiting-resolved Ketonuria -Continue IV hydration normal saline at 100 cc/hr -Obtain CT of the abdomen without contrast - hemoglobin A1c- 8.2 -Obtain hepatic function panel -Begin carb controlled diabetic diet -Zofran for nausea DM EDUCATION Heme/ID: Leukocytosis Sepsis Obtain blood and urine cultures Continue prophylactic coverage with Vanco and Zosyn, will de-escalate upon speciation Obtain urine strep pneumo, Legionella, and influenza A/B antigen Endocrine: Diabetes mellitus Obtain hemoglobin A1c -- SSI Prophylaxis: GI Prophylaxis Famotidine DVT Prophylaxis -- SCDs Initiate heparin 5000 units twice daily PT evaluation and treatment Lines: Peripheral IVs providing adequate access. AYSHA WAS NEGATIVE FOR CLOTS OR SHUNTS EF OF 60% Code Status: FULL CODE Discussed Condition With: RN AND PT AND CARDIOLOGY Discharge Planning: PENDING NEUROLOGY AND CARDIOLOGY CLEARANCE
[2018-08-11] MEDS: Vancomycin Inj 2,500 MG in Sodium Chlor 0.9% Inj 500 ML IV.SIG SCH (12:52)
[2018-08-11] MEDS: Vancomycin Inj 2,250 MG in Sodium Chlor 0.9% Inj 500 ML IV.SIG SCH (14:14)
--- NOTE | 2018-08-11 15:24 | P.DIET ---
Nutritional Evaluation Type of nutrition evaluation: initial Nutrition screening: MDC (diet education) Assessment Assessment: [facility] for diet education received on 08/10. Pt has a hx of non compliance for DM management w/ poor control. Pts A1c is 8.1%. Pts mother present during RD visit. Pt mentioned diabetes education visited him yesterday and provided him w / a glucose monitor. RD explained the importance of being consistent w/ carbohydrates and checking his blood sugars. RD also mentioned the dangers of having a high A1c value. Both pt and pt mother were attentive and positive on starting to manage pts DM. Consult RD if any questions arise. Recommendations: Consult RD if any questions arise
[2018-08-11 17:10] LABS: Anti-Nuclear Antibody Screen Neg (Neg)
[2018-08-12] MEDS: Piperacil/Tazo 3.375 GM Premix 50 ML IV.SIG SCH ×5 (00:20→23:29)
[2018-08-12] MEDS: Vancomycin Inj 2,500 MG in Sodium Chlor 0.9% Inj 500 ML IV.SIG SCH ×2 (00:24→13:12)
[2018-08-12] MEDS: hydrALAZINE HCl Inj 20 MG/ML Vial IV.PUSH PRN ×2 (03:09→08:32)
[2018-08-12 03:51] LABS: Homocysteine (Cardiovascular) 11.8 umol/L (<11.4)
[2018-08-12] MEDS: Insulin NovoLOG Aspart Correctional Sugar Inj SQ SCH ×5 (04:51→20:47)
[2018-08-12 05:03] LABS: Baso # (Auto) 0.1 th/mm3 (0.0-0.2); Baso % (Auto) 0.9 % (0.0-2.0); Eos # (Auto) 0.2 th/mm3 (0.0-0.4); Eos % (Auto) 2.3 % (0.0-4.0); Hematocrit 42.3 % (39.0-51.0); Lymph # (Auto) 1.5 th/mm3 (1.0-4.8); Lymph % (Auto) 15.9 % (9.0-44.0); Mean Corpuscular HGB Conc 35.4 % (32.0-36.0); Mean Corpuscular Hemoglobin 30.2 pg (27.0-34.0); Mean Corpuscular Volume 85.2 fL (80.0-100.0); Mean Platelet Volume 9.3 fL (7.0-11.0); Mono # (Auto) 0.9 th/mm3 (0.0-0.9); Mono % (Auto) 9.2 % (0.0-8.0); Neut # (Auto) 6.9 th/mm3 (1.8-7.7); Neut % (Auto) 71.7 % (16.0-70.0); Platelet Count 239 th/mm3 (150-450); Red Blood Count 4.97 mil/mm3 (4.50-5.90); Red Cell Distribution Width 13.1 % (11.6-17.2); White Blood Count 9.6 th/mm3 (4.0-11.0)
[2018-08-12 05:21] LABS: Albumin 3.3 g/dL (3.4-5.0); Anion Gap 9 meq/L (5-15); Aspartate Aminotransferase 13 U/L (15-37); Blood Urea Nitrogen 15 mg/dL (7-18); Calcium 8.5 mg/dL (8.5-10.1); Carbon Dioxide 23.9 meq/L (21.0-32.0); Chloride 107 meq/L (98-107); Glomerular Filtration Rate 82 mL/min (>89); Glucose,Random 118 mg/dL (74-106); Magnesium 2.1 mg/dL (1.5-2.5); Potassium 3.4 meq/L (3.5-5.1); Sodium 140 meq/L (136-145)
[2018-08-12 05:25] LABS: Alanine Aminotransferase 25 U/L (12-78); Alkaline Phosphatase 58 U/L (45-117); Phosphorus 3.3 mg/dL (2.5-4.9); Total Protein 7.1 g/dL (6.4-8.2)
[2018-08-12] MEDS: Chlorhexidine Gluconate 2% 1 Pack (2 Cloths) TOPICAL SCH (05:31)
[2018-08-12] MEDS: Potassium Chlor 20 mEq Premix 20 MEQ/100 ML PIGGYBACK IV.SIG PRN ×2 (06:15→08:31)
[2018-08-12] MEDS: Sod Chloride 0.9% Inj 1,000 ML IV.CONT SCH ×2 (08:29→22:45)
[2018-08-12] MEDS: Famotidine PF Inj 20 MG/2 ML Vial IV.PUSH SCH ×2 (08:31→20:46)
[2018-08-12] MEDS: Metoprolol Tartrate 25 MG Tablet PO SCH (08:32)
[2018-08-12] MEDS: Lisinopril 5 MG Tablet PO SCH (08:32)
[2018-08-12] MEDS: NIFEdipine 10 MG Capsule PO SCH ×3 (08:32→17:02)
[2018-08-12] MEDS: Senna/Docusate Sodium 8.6/50 MG Tablet PO SCH ×3 (08:35→23:30)
--- NOTE | 2018-08-12 09:06 | P.PNCA ---
Subjective Interval history: alert in nad Medications and Allergies Active Medications: Active Medications Acetaminophen (Tylenol) 650 mg PO Q6H PRN PRN Reason: PAIN 1-10 AND/OR FEVER >101F Al Hydroxide/Mg Hydroxide (Milk Of Shruti French) 30 ml PO Q12H PRN PRN Reason: Mild Constipation Albuterol (Duoneb Neb (Prn)) 1 ampul NEB Q2HR NEB PRN PRN Reason: WHEEZING Bisacodyl (Dulcolax Supp) 10 mg RECTAL DAILY PRN PRN Reason: SEVERE CONSITIPATION Chlorhexidine Gluconate (Chlorhexidine 2% Cloth) 3 pack TOPICAL DAILY@0400 [facility] Stop: 08/13/18 03:59 Last Admin: 08/12/18 05:31 Dose: 3 pack Chlorhexidine Gluconate (Chlorhexidine 2% Cloth) 3 pack TOPICAL DAILY@0400 PRN PRN Reason: Extra cloth needed Stop: 08/13/18 03:59 Dextrose (D50w Vial) 50 ml IV.PUSH UNSCH PRN PRN Reason: PER HYPOGLYCEMIA PROTOCOL Enalaprilat (Vasotec Inj) 2.5 mg IV.PUSH Q6H PRN PRN Reason: SBP>160, DBP>90 Last Admin: 08/10/18 16:00 Dose: 2.5 mg Famotidine (Pepcid Pf Inj) 20 mg IV.PUSH Q12HR [facility] Last Admin: 08/12/18 08:31 Dose: 20 mg Glucagon (Glucagon Inj) 1 mg OTHER PRN PRN PRN Reason: for Hypoglycemia Protocol Hydralazine HCl (Apresoline Inj) 20 mg IV.PUSH Q4H PRN PRN Reason: HYPERTENSION Last Admin: 08/12/18 08:32 Dose: 20 mg Magnesium Sulfate 4 gm/ Sodium (Chloride) 100 mls @ 50 mls/hr IV.SIG UNSCH PRN PRN Reason: For Magnesium 0.9 - 1.1 mg/dL Magnesium Sulfate 2 gm/ Sodium (Chloride) 100 mls @ 50 mls/hr IV.SIG UNSCH PRN PRN Reason: For Magnesium 1.2 - 1.6 mg/dL Potassium Chloride (Kcl 40 Meq Premix Inj) 40 meq in 100 mls @ 25 mls/hr IV.SIG Q2H PRN PRN Reason: For Potassium 2.8 - 3.2 mEq/L Potassium Chloride (Kcl 20 Meq Premix Inj) 20 meq in 100 mls @ 50 mls/hr IV.SIG Q2H PRN PRN Reason: For Potassium 3.3 - 3.5 mEq/L Last Admin: 08/12/18 08:31 Dose: 50 mls/hr Potassium Chloride (Kcl 40 Meq Premix Inj) 40 meq in 100 mls @ 25 mls/hr IV.SIG UNSCH PRN PRN Reason: For Potassium 3.3 - 3.5 mEq/L Potassium Chloride (Kcl 20 Meq Premix Inj) 20 meq in 100 mls @ 50 mls/hr IV.SIG Q2H PRN PRN Reason: For Potassium 2.8 - 3.2 mEq/L Last Infusion: 08/11/18 14:13 Dose: Infused Potassium Phosphate 30 mmol/ (Sodium Chloride) 260 mls @ 42 mls/hr IV.SIG UNSCH PRN PRN Reason: SEE LABEL COMMENTS Sodium Phosphate 30 mmol/ (Sodium Chloride) 260 mls @ 42 mls/hr IV.SIG UNSCH PRN PRN Reason: For Phosphorus < 2.5 mg/dL Nicardipine HCl 25 mg/ Sodium (Chloride) 250 mls @ 50 mls/hr IV.CONT TITRATE [facility]; Protocol Last Titration: 08/08/18 21:51 Dose: Infused Sodium Chloride (Ns Inj) 1,000 mls @ 100 mls/hr IV.CONT .Q10H [facility] Last Admin: 08/12/18 08:29 Dose: 100 mls/hr Piperacillin/Tazobactam/Dextrose (Zosyn 3.375 Gm Premix) 50 mls @ 100 mls/hr IV.SIG Q6H [facility] Last Infusion: 08/12/18 06:58 Dose: Infused Vancomycin HCl 2,500 mg/ (Sodium Chloride) 525 mls @ 250 mls/hr IV.SIG Q12H [facility] Last Infusion: 08/12/18 06:02 Dose: Infused Insulin Aspart (Novolog Insulin Correctional Sugar Inj) 0 unit SQ ACHS AND 3AM [facility]; Protocol Last Admin: 08/12/18 08:31 Dose: Not Given Lactulose (Lactulose Liq) 30 ml PO DAILY PRN PRN Reason: SEVERE CONSITIPATION Lisinopril (Prinivil) 10 mg PO BID [facility] Last Admin: 08/12/18 08:32 Dose: 10 mg Magnesium Oxide (Mag-Ox) 800 mg PO UNSCH PRN PRN Reason: For Magnesium 1.2 - 1.6 mg/dL Metoprolol Tartrate (Lopressor) 25 mg PO BID [facility] Last Admin: 08/12/18 08:32 Dose: 25 mg Miscellaneous Information ([facility] Ordered Lab Info) 0 each OTHER ONCE ONE Stop: 08/12/18 23:46 Nifedipine (Procardia) 10 mg PO TID [facility] Last Admin: 08/12/18 08:32 Dose: 10 mg Ondansetron HCl (Zofran Inj) 4 mg IV.PUSH Q6H PRN PRN Reason: NAUSEA OR VOMITING Pharmacy Profile Note (Vancomycin Consult Pharmacy) 1 each OTHER UNSCH PRN PRN Reason: Pharmacy to dose Potassium Bicarb/Potassium Chloride (K-Lyte Cl Eff) 50 meq PO UNSCH PRN PRN Reason: For Potassium 3.3 - 3.5 mEq/L Last Admin: 08/09/18 10:00 Dose: 50 meq Potassium Phosphate (K-Phos Original) 2,000 mg PO UNSCH PRN PRN Reason: SEE LABEL COMMENTS Potassium Phosphate (K-Phos Original) 2,000 mg PO Q4H PRN PRN Reason: Phosphorus Less Than 2.5 mg/dL Senna/Docusate Sodium (Sobeida-Colace) 1 tab PO BID [facility] Last Admin: 08/12/18 08:35 Dose: Not Given Sennosides (Senokot) 17.2 mg PO Q12H PRN PRN Reason: Moderate Constipation Sodium Chloride (Ns Flush) 2 ml IV.FLUSH BID [facility] Last Admin: 08/12/18 08:32 Dose: 2 ml Sodium Chloride (Ns Flush) 2 ml IV.FLUSH PRN PRN PRN Reason: FLUSH AFTER USING IV ACCESS Allergies Allergy/AdvReac Type Severity Reaction Status Date / Time No Known Allergies Allergy Verified 08/07/18 09:59 Home Medications Medication Instructions Recorded Confirmed Type No Known Home Medications 08/07/18 08/07/18 History Physical Exam Vital signs: Vital Signs 08/11/18 09:10 08/11/18 09:22 08/11/18 09:30 Temperature Pulse Rate 81 105 H 108 H Respiratory Rate 20 20 19 Blood Pressure 187/107 H 188/95 H 186/76 H Pulse Oximetry 95 95 93 L 08/11/18 09:44 08/11/18 09:48 08/11/18 09:52 Temperature Pulse Rate 101 H 97 H 90 Respiratory Rate 22 19 22 Blood Pressure 156/79 H 165/83 H 149/86 H Pulse Oximetry 92 L 94 L 93 L 08/11/18 09:56 08/11/18 10:00 08/11/18 10:04 Temperature Pulse Rate 99 H 110 H 105 H Respiratory Rate 16 17 23 Blood Pressure 156/83 H 169/73 H 158/77 H Pulse Oximetry 94 L 93 L 94 L 08/11/18 10:09 08/11/18 10:11 08/11/18 10:12 Temperature Pulse Rate 96 H 92 H Respiratory Rate 24 23 Blood Pressure 133/77 138/72 Pulse Oximetry 93 L 96 08/11/18 10:54 08/11/18 11:28 08/11/18 11:32 Temperature Pulse Rate 85 99 H Respiratory Rate 16 Blood Pressure 166/97 H 146/97 H Pulse Oximetry 95 97 96 08/11/18 11:36 08/11/18 11:40 08/11/18 11:44 Temperature Pulse Rate 94 H 84 89 Respiratory Rate 25 H 17 20 Blood Pressure 152/104 H 178/90 H 175/93 H Pulse Oximetry 96 96 97 08/11/18 11:48 08/11/18 11:52 08/11/18 11:57 Temperature Pulse Rate 86 86 86 Respiratory Rate 18 20 19 Blood Pressure 180/98 H 160/79 H 179/91 H Pulse Oximetry 96 97 96 08/11/18 12:00 08/11/18 12:04 08/11/18 12:08 Temperature Pulse Rate 87 90 85 Respiratory Rate 19 18 16 Blood Pressure 179/97 H 178/90 H 180/93 H Pulse Oximetry 96 96 95 08/11/18 12:12 08/11/18 12:16 08/11/18 12:20 Temperature Pulse Rate 85 89 90 Respiratory Rate 17 18 20 Blood Pressure 175/95 H 166/96 H 183/102 H Pulse Oximetry 97 96 97 08/11/18 12:24 08/11/18 12:28 08/11/18 12:32 Temperature Pulse Rate 85 83 80 Respiratory Rate 20 16 16 Blood Pressure 171/93 H 178/90 H 172/90 H Pulse Oximetry 95 95 95 08/11/18 12:36 08/11/18 12:40 08/11/18 12:44 Temperature Pulse Rate 80 78 79 Respiratory Rate 15 16 17 Blood Pressure 169/93 H 175/94 H 182/95 H Pulse Oximetry 96 96 96 08/11/18 12:48 08/11/18 12:52 08/11/18 12:56 Temperature Pulse Rate 80 82 87 Respiratory Rate 17 18 18 Blood Pressure 173/91 H 167/89 H 168/93 H Pulse Oximetry 96 96 96 08/11/18 13:00 08/11/18 14:00 08/11/18 15:00 Temperature Pulse Rate 91 H 100 H 92 H Respiratory Rate 18 18 17 Blood Pressure 176/91 H 162/70 H 154/77 H Pulse Oximetry 95 94 L 95 08/11/18 16:00 08/11/18 17:00 08/11/18 18:00 Temperature Pulse Rate 94 H 104 H Respiratory Rate 20 18 Blood Pressure 153/80 H 151/88 H 150/78 H Pulse Oximetry 97 96 96 08/11/18 19:00 08/11/18 20:00 08/11/18 20:01 Temperature 97.7 F Pulse Rate 99 H 100 H 101 H Respiratory Rate 19 19 21 Blood Pressure 160/84 H 214/108 H Pulse Oximetry 94 L 97 96 08/11/18 20:05 08/11/18 20:25 08/11/18 21:00 Temperature Pulse Rate 99 H 90 Respiratory Rate 19 17 Blood Pressure 161/94 H Pulse Oximetry 97 95 96 08/11/18 21:35 08/11/18 21:57 08/11/18 22:00 Temperature Pulse Rate 86 80 82 Respiratory Rate 16 17 16 Blood Pressure 171/73 H 160/66 H Pulse Oximetry 96 96 96 08/11/18 22:01 08/11/18 23:00 08/12/18 00:00 Temperature 98.1 F Pulse Rate 84 89 96 H Respiratory Rate 16 15 19 Blood Pressure 151/76 H 150/83 H 161/78 H Pulse Oximetry 95 94 L 95 08/12/18 01:00 08/12/18 01:01 08/12/18 02:00 Temperature Pulse Rate 81 80 92 H Respiratory Rate 17 18 18 Blood Pressure 143/78 H 169/82 H Pulse Oximetry 95 95 94 L 08/12/18 03:00 08/12/18 03:01 08/12/18 03:04 Temperature Pulse Rate 90 95 H 91 H Respiratory Rate 16 17 19 Blood Pressure 196/95 H 168/86 H Pulse Oximetry 94 L 94 L 94 L 08/12/18 04:00 08/12/18 04:01 08/12/18 04:28 Temperature 98.6 F Pulse Rate 96 H 95 H 101 H Respiratory Rate 16 16 22 Blood Pressure 182/77 H 112/52 L Pulse Oximetry 93 L 93 L 94 L 08/12/18 05:00 08/12/18 06:00 Temperature Pulse Rate 95 H 95 H Respiratory Rate 17 17 Blood Pressure 164/76 H 159/93 H Pulse Oximetry 94 L 94 L Intake & Output 08/11/18 08/12/18 08/12/18 18:59 06:59 18:59 Intake Total 1925 / 1925 1625 / 1625 1100 / 1100 Output Total 1225 / 1225 1300 / 1300 Balance 700 / 700 325 / 325 1100 / 1100 Weight 123.9 kg Intake: IV 1925 / 1925 1625 / 1625 1100 / 1100 NS Inj 1,000 ML @ 100 mls/hr IV 1000 / 1000 1000 / 1000 1000 / 1000 .CONT .Q10H [facility] Rx#:[id number] Zosyn 3.375 GM Premix 50 ML @ 100 / 100 100 / 100 100 mls/hr IV.SIG Q6H FABIOLA Rx#: [id number] KCl 20 mEq Premix Inj 20 meq In 300 / 300 100 / 100 100 ml @ 50 mls/hr IV.SIG Q2H PRN Rx#:[id number] Vancomycin Inj 2,500 MG In NS 525 / 525 525 / 525 Inj 500 ML @ 250 mls/hr IV.SIG Q12H [facility]A Rx#:[id number] Output: Urine 1225 / 1225 1300 / 1300 - Constitutional no acute distress - Routine HEENT Exam Head: Present: normocephalic - Routine Neck Exam Present: supple - Routine Respiratory Exam Present: CTA bilaterally - Routine Cardiovascular Exam Present: S1, S2 - Routine Abdominal Exam Present: soft - Routine Extremities Exam Comments: no graham Results 08/12/18 04:31 08/12/18 04:31 Cardiac Enzymes 08/11/18 08/12/18 Range/Units 07:35 04:31 AST 16 13 L (15-37) U/L CBC 08/11/18 08/12/18 Range/Units 04:32 04:31 WBC 9.7 9.6 (4.0-11.0) th/mm3 RBC 5.01 4.97 (4.50-5.90) mil/mm3 Hgb 15.0 15.0 (13.0-17.0) gm/dL Hct 42.6 42.3 (39.0-51.0) % Plt Count 215 239 (150-450) th/mm3 Neut # (Auto) 7.3 6.9 (1.8-7.7) th/mm3 Lymph # (Auto) 1.3 1.5 (1.0-4.8) th/mm3 Rush # (Auto) 0.9 0.9 (0.0-0.9) th/mm3 Eos # (Auto) 0.1 0.2 (0.0-0.4) th/mm3 Baso # (Auto) 0.1 0.1 (0.0-0.2) th/mm3 Comprehensive Metabolic Panel 08/10/18 08/11/18 08/12/18 Range/Units 22:35 07:35 04:31 Sodium 139 140 (136-145) meq/L Potassium 3.2 L 3.7 3.4 L (3.5-5.1) meq/L Chloride 105 107 (98-107) meq/L Carbon Dioxide 26.9 23.9 (21.0-32.0) meq/L BUN 12 15 (7-18) mg/dL Creatinine 0.98 0.98 (0.60-1.30) mg/dL Calcium 8.5 8.5 (8.5-10.1) mg/dL AST 16 13 L (15-37) U/L ALT 25 25 (12-78) U/L Alkaline Phosphatase 57 58 (45-117) U/L Total Protein 7.1 D 7.1 (6.4-8.2) g/dL Albumin 3.3 L 3.3 L (3.4-5.0) g/dL Intake and Output 08/11/18 08/12/18 08/12/18 22:59 06:59 14:59 Intake Total 1575 / 1575 625 / 625 1100 / 1100 Output Total 300 / 300 1300 / 1300 Balance 1275 / 1275 -675 / -675 1100 / 1100 Intake: IV 1575 / 1575 625 / 625 1100 / 1100 NS Inj 1,000 ML @ 100 mls/hr IV 1000 / 1000 1000 / 1000 .CONT .Q10H [facility] Rx#:[id number] Zosyn 3.375 GM Premix 50 ML @ 50 / 50 100 / 100 100 mls/hr IV.SIG Q6H [facility] Rx#: [id number] KCl 20 mEq Premix Inj 20 meq In 100 / 100 100 ml @ 50 mls/hr IV.SIG Q2H PRN Rx#:[id number] Vancomycin Inj 2,500 MG In NS 525 / 525 525 / 525 Inj 500 ML @ 250 mls/hr IV.SIG Q12H [facility] Rx#:[id number] Output: Urine 300 / 300 1300 / 1300 Other: Weight 123.9 kg - Imaging and Cardiology Imaging: Impressions Head/Brain Mag Res Venography 08/10/18 00:00 CONCLUSION: No intracranial venous thrombosis is identified. Neck MRA 08/10/18 00:00 CONCLUSION: Negative MRA of the neck. Percent stenosis is calculated using the diameter of the stenotic region over the diameter of the normal distal internal carotid artery Head MRA 08/10/18 07:04 CONCLUSION: Negative MRA of the brain. Assessment and Plan - Assessment (1) CVA (cerebral vascular accident) Code(s): I63.9 - Cerebral infarction, unspecified Status: Acute - Plan 1.) CVA - AYSHA negative for CSE, results d/w Dr Farzad Gonzalez and patient, will sign off
--- NOTE | 2018-08-12 11:00 | P.PNIM ---
Subjective Interval history: Chief Complaint: Nausea and Vomiting/ Blurry vision History of Present Illness: This is a 48-year-old male that presented to the [facility] via EMS this morning with complaints of having diarrhea approximately 1 week ago. He woke up this morning with complaints of blurry vision and nausea and vomiting. Patient upon presentation stated that the onset was 4 hours prior to arrival which point he was diaphoretic with a systolic blood pressure in the 200s. a nicardipine infusion was initiated in the ED. The patient provided a history of being diagnosed a diabetic and previously on metformin but stopped 3 or 4 years ago stating the diabetes went away imaging studies were attempted to be performed the brain and abdomen however the patient refused. Per history from emergency room physician the patient has a history of noncompliance, and poorly controlled diabetes mellitus. laboratory studies were obtained showing a slight leukocytosis with a WBC count of 11.2 patient was empirically given vancomycin and Zosyn. Critical care medicine was consulted, and the patient was transferred to [facility]. Upon presentation the patient's blood pressure was noted to be 160/102 the patient was noted to be lethargic initially refusing to have imaging studies done secondary to claustrophobia but subsequently agreeing to stat imaging studies. 12/4: Afebrile. No acute events overnight. Resolution of nausea and vomiting. The patient continues on normal saline 100 cc, Hgb A1c elevated notably patient is diabetic noncompliant. The patient expresses an appetite carb controlled diabetic diet ordered. Blood glucose glucose levels ranging in the 140s-200. Sliding scale insulin every 4 hours added to medication regimen. Patient continues on nicardipine infusion Lopressor added to medication regimen with continue weaning of nicardipine. 12-5 F/up encephalopathy, uncontrolled diabetes Patient is more awake and alert however he is noted with slurred speech. He does not have any motor deficit or sensory deficit. No change in vision. Nausea resolved he is able to eat and able to swallow. No fever or chills. No cough. Patient is anxious on and off. Patient he says he has a history of diabetes however he is not taking medications. Advised compliance with medications and dietary changes. Patient was counseled at length 12-6 HAD MORE STUDIES TODAY LOOKS LIKE STROKES ON MRI DW RN AND PT AND CM SEEN BY NEUROLOGY CONSULTED CARDIOLOGY PER NEUROLOGY OFF CARDENE DRIP NEEDS DM EDUCATION 12-7 HAD AYSHA NEGATIVE FOR ANYTHING OTHER THAN TRACE MITRAL VALVE REGURGITATION- - EF OF 60% WILL NEED LP PER DR SILVA NOTE STILL HAS SLURRED SPEECH ON AND OFF DW RN AND PT AND CARDIOLOGY 12-8 POSSIBLE LP ON TUESDAY LESS SLURRED SPEECH BLOOD PRESSURE NOT WELL CONTROLLED WILL ADJUST DW RN AND PT INCREASE METOPROLOL TO 50MG PO BID INCREASE LISINOPRIL TO 20MG PO BID AM LABS FEED Physical Exam Vital signs: Vital Signs 08/11/18 10:54 08/11/18 11:28 08/11/18 11:32 Temperature Pulse Rate 85 99 H Respiratory Rate 16 Blood Pressure 166/97 H 146/97 H Pulse Oximetry 95 97 96 08/11/18 11:36 08/11/18 11:40 08/11/18 11:44 Temperature Pulse Rate 94 H 84 89 Respiratory Rate 25 H 17 20 Blood Pressure 152/104 H 178/90 H 175/93 H Pulse Oximetry 96 96 97 08/11/18 11:48 08/11/18 11:52 08/11/18 11:57 Temperature Pulse Rate 86 86 86 Respiratory Rate 18 20 19 Blood Pressure 180/98 H 160/79 H 179/91 H Pulse Oximetry 96 97 96 08/11/18 12:00 08/11/18 12:04 08/11/18 12:08 Temperature Pulse Rate 87 90 85 Respiratory Rate 19 18 16 Blood Pressure 179/97 H 178/90 H 180/93 H Pulse Oximetry 96 96 95 08/11/18 12:12 08/11/18 12:16 08/11/18 12:20 Temperature Pulse Rate 85 89 90 Respiratory Rate 17 18 20 Blood Pressure 175/95 H 166/96 H 183/102 H Pulse Oximetry 97 96 97 08/11/18 12:24 08/11/18 12:28 08/11/18 12:32 Temperature Pulse Rate 85 83 80 Respiratory Rate 20 16 16 Blood Pressure 171/93 H 178/90 H 172/90 H Pulse Oximetry 95 95 95 08/11/18 12:36 08/11/18 12:40 08/11/18 12:44 Temperature Pulse Rate 80 78 79 Respiratory Rate 15 16 17 Blood Pressure 169/93 H 175/94 H 182/95 H Pulse Oximetry 96 96 96 08/11/18 12:48 08/11/18 12:52 08/11/18 12:56 Temperature Pulse Rate 80 82 87 Respiratory Rate 17 18 18 Blood Pressure 173/91 H 167/89 H 168/93 H Pulse Oximetry 96 96 96 08/11/18 13:00 08/11/18 14:00 08/11/18 15:00 Temperature Pulse Rate 91 H 100 H 92 H Respiratory Rate 18 18 17 Blood Pressure 176/91 H 162/70 H 154/77 H Pulse Oximetry 95 94 L 95 08/11/18 16:00 08/11/18 17:00 08/11/18 18:00 Temperature Pulse Rate 94 H 104 H Respiratory Rate 20 18 Blood Pressure 153/80 H 151/88 H 150/78 H Pulse Oximetry 97 96 96 08/11/18 19:00 08/11/18 20:00 08/11/18 20:01 Temperature 97.7 F Pulse Rate 99 H 100 H 101 H Respiratory Rate 19 19 21 Blood Pressure 160/84 H 214/108 H Pulse Oximetry 94 L 97 96 08/11/18 20:05 08/11/18 20:25 08/11/18 21:00 Temperature Pulse Rate 99 H 90 Respiratory Rate 19 17 Blood Pressure 161/94 H Pulse Oximetry 97 95 96 08/11/18 21:35 08/11/18 21:57 08/11/18 22:00 Temperature Pulse Rate 86 80 82 Respiratory Rate 16 17 16 Blood Pressure 171/73 H 160/66 H Pulse Oximetry 96 96 96 08/11/18 22:01 08/11/18 23:00 08/12/18 00:00 Temperature 98.1 F Pulse Rate 84 89 96 H Respiratory Rate 16 15 19 Blood Pressure 151/76 H 150/83 H 161/78 H Pulse Oximetry 95 94 L 95 08/12/18 01:00 08/12/18 01:01 08/12/18 02:00 Temperature Pulse Rate 81 80 92 H Respiratory Rate 17 18 18 Blood Pressure 143/78 H 169/82 H Pulse Oximetry 95 95 94 L 08/12/18 03:00 08/12/18 03:01 08/12/18 03:04 Temperature Pulse Rate 90 95 H 91 H Respiratory Rate 16 17 19 Blood Pressure 196/95 H 168/86 H Pulse Oximetry 94 L 94 L 94 L 08/12/18 04:00 08/12/18 04:01 08/12/18 04:28 Temperature 98.6 F Pulse Rate 96 H 95 H 101 H Respiratory Rate 16 16 22 Blood Pressure 182/77 H 112/52 L Pulse Oximetry 93 L 93 L 94 L 08/12/18 05:00 08/12/18 06:00 08/12/18 07:00 Temperature Pulse Rate 95 H 95 H 97 H Respiratory Rate 17 17 16 Blood Pressure 164/76 H 159/93 H 169/90 H Pulse Oximetry 94 L 94 L 94 L 08/12/18 08:00 08/12/18 08:06 08/12/18 08:39 Temperature Pulse Rate 96 H 103 H 98 H Respiratory Rate 19 20 20 Blood Pressure 182/120 H 192/95 H 173/89 H Pulse Oximetry 95 94 L 94 L 08/12/18 09:00 08/12/18 09:19 08/12/18 10:00 Temperature Pulse Rate 97 H 87 Respiratory Rate 18 18 Blood Pressure 162/89 H 141/73 H Pulse Oximetry 94 L 92 L 93 L Intake & Output 08/11/18 08/12/18 08/12/18 18:59 06:59 18:59 Intake Total 1925 / 1925 1625 / 1625 1200 / 1200 Output Total 1225 / 1225 1300 / 1300 Balance 700 / 700 325 / 325 1200 / 1200 Weight 123.9 kg Intake: IV 1925 / 1925 1625 / 1625 1200 / 1200 NS Inj 1,000 ML @ 100 mls/hr IV 1000 / 1000 1000 / 1000 1000 / 1000 .CONT .Q10H FABIOLA Rx#:[id number] Zosyn 3.375 GM Premix 50 ML @ 100 / 100 100 / 100 100 mls/hr IV.SIG Q6H FABIOLA Rx#: [id number] KCl 20 mEq Premix Inj 20 meq In 300 / 300 200 / 200 100 ml @ 50 mls/hr IV.SIG Q2H PRN Rx#:[id number] Vancomycin Inj 2,500 MG In NS 525 / 525 525 / 525 Inj 500 ML @ 250 mls/hr IV.SIG Q12H FABIOLA Rx#:[id number] Output: Urine 1225 / 1225 1300 / 1300 Narrative: GENERAL: This is obese male patient of stated age, in no acute distress SKIN: Warm and dry. HEAD: Atraumatic. Normocephalic. EYES: Pupils equal and round. No scleral icterus. No injection or drainage. ENT: No nasal bleeding or discharge. Mucous membranes pink and moist. NECK: Trachea midline. No JVD. CARDIOVASCULAR: Normal rate, regular rhythm. S1, S2 NO S3 OR S4 RESPIRATORY: No accessory muscle use. Clear to auscultation. Breath sounds equal bilaterally. GASTROINTESTINAL: Abdomen soft, non-tender, obese ,nondistended. No guarding. MUSCULOSKELETAL: Extremities without clubbing, cyanosis, or edema. No obvious deformities. NEUROLOGICAL: Awake and alert. No gross focal/sensory deficits. Follows commands in all 4 extremities. Results - Labs CBC & Chem 7: 08/12/18 04:31 08/12/18 04:31 Laboratory Results - last 24 hr 08/10/18 08/10/18 08/10/18 09:22 09:24 09:24 WBC RBC Hgb Hct MCV MCH MCHC RDW Plt Count MPV Neut % (Auto) Lymph % (Auto) Sharkey % (Auto) Eos % (Auto) Baso % (Auto) Neut # (Auto) Lymph # (Auto) Sharkey # (Auto) Eos # (Auto) Baso # (Auto) WBC Differential Differential Comment Sodium Potassium Chloride Carbon Dioxide Anion Gap BUN Creatinine Estimated GFR POC Glucose Random Glucose Calcium Phosphorus Magnesium Total Bilirubin AST ALT Alkaline Phosphatase Total Protein Albumin PEP Pathologist Comment Homocysteine Cardiovas 11.8 H BRAYDON Screen Neg RPR Nonreactive 08/11/18 08/11/18 08/11/18 12:54 17:00 20:36 WBC RBC Hgb Hct MCV MCH MCHC RDW Plt Count MPV Neut % (Auto) Lymph % (Auto) Sharkey % (Auto) Eos % (Auto) Baso % (Auto) Neut # (Auto) Lymph # (Auto) Sharkey # (Auto) Eos # (Auto) Baso # (Auto) WBC Differential Differential Comment Sodium Potassium Chloride Carbon Dioxide Anion Gap BUN Creatinine Estimated GFR POC Glucose 110 107 121 H Random Glucose Calcium Phosphorus Magnesium Total Bilirubin AST ALT Alkaline Phosphatase Total Protein Albumin PEP Pathologist Comment Homocysteine Cardiovas BRAYDON Screen RPR 08/12/18 08/12/18 08/12/18 03:19 04:31 04:31 WBC 9.6 RBC 4.97 Hgb 15.0 Hct 42.3 MCV 85.2 MCH 30.2 MCHC 35.4 RDW 13.1 Plt Count 239 MPV 9.3 Neut % (Auto) 71.7 H Lymph % (Auto) 15.9 Sharkey % (Auto) 9.2 H Eos % (Auto) 2.3 Baso % (Auto) 0.9 Neut # (Auto) 6.9 Lymph # (Auto) 1.5 Sharkey # (Auto) 0.9 Eos # (Auto) 0.2 Baso # (Auto) 0.1 WBC Differential . Differential Comment Auto diff final Sodium 140 Potassium 3.4 L Chloride 107 Carbon Dioxide 23.9 Anion Gap 9 BUN 15 Creatinine 0.98 Estimated GFR 82 L POC Glucose 138 H Random Glucose 118 H Calcium 8.5 Phosphorus 3.3 Magnesium 2.1 Total Bilirubin 1.2 H AST 13 L ALT 25 Alkaline Phosphatase 58 Total Protein 7.1 Albumin 3.3 L PEP Pathologist Comment Homocysteine Cardiovas BRAYDON Screen RPR Microbiology 08/07/18 19:00 Blood - Peripheral Aerobic Blood Culture - Preliminary No growth in 4 days 08/07/18 19:00 Blood - Peripheral Anaerobic Blood Culture - Preliminary No growth in 4 days 08/07/18 19:38 Blood - Peripheral Aerobic Blood Culture - Preliminary No growth in 4 days 08/07/18 19:38 Blood - Peripheral Anaerobic Blood Culture - Preliminary No growth in 4 days - Imaging ITS Impressions Abdomen/Pelvis CT 08/07/18 00:00 CONCLUSION: 1. Fatty liver. 2. 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 Otherwise negative noncontrast CT of the abdomen and pelvis. Head MRI 08/09/18 00:00 CONCLUSION: 1. 2 small adjacent foci of restricted diffusion in the white matter of the left parietal lobe consistent with acute to subacute areas of infarction. 2. Multiple small chronic infarcts. 3. Atrophy and apparent chronic small vessel ischemic change. Chest X-Ray 08/09/18 04:00 CONCLUSION: Hypoinflation. Clear lungs. Head CT 08/09/18 11:53 CONCLUSION: 1. Stable noncontrast head CT. No acute intracranial abnormality is identified. 2. Stable areas of low density in the periventricular regions bilaterally which could represent atelectasis. . Head/Brain Mag Res Venography 08/10/18 00:00 CONCLUSION: No intracranial venous thrombosis is identified. Neck MRA 08/10/18 00:00 CONCLUSION: Negative MRA of the neck. Percent stenosis is calculated using the diameter of the stenotic region over the diameter of the normal distal internal carotid artery Head MRA 08/10/18 07:04 CONCLUSION: Negative MRA of the brain. - Procedures AYSHA 08-11 Assessment and Plan - Plan Assessment: This is a 48-year-old male with a history of noncompliance presenting with lethargy nausea and vomiting concern for neurological changes possible increasing intracranial pressure, as well as intra-abdominal dysfunction refusing imaging. Patient's lethargy very concerning in the setting of nausea and vomiting and hypertensive urgency. Admit to ICU the patient is critically ill obtain imaging and laboratory studies. Plan by systems: Neurologic: Metabolic encephalopathy, metabolic? Altered mental status -Obtain stat CT of the brain -Ammonia level, TSH level -Urine tox screen negative Respiratory: -Obtain ABG, concern for CO2 narcosis -Duo nebs as needed -Supplement with nasal cannula O2 wean as tolerated to maintain O2 saturation 92 % -Avoid all sedative type medication -Neurochecks per ICU protocol Cardiovascular: Hypertensive urgency -Begin Lopressor 25 mg twice daily, wean off nicardipine infusion INCREASE LOPRESSOR TO 50MG BID -Labetalol and hydralazine as needed -Monitor serial troponins negative -INCREASE LISINOPRIL TO 20MG PO BID Renal: Hypokalemia HYPOMAGNESIA Replete per electrolyte protocol -- Strict I/Os WILL REPLACE AGAIN FEN/GI: Diabetes mellitus Obesity Nausea and vomiting-resolved Ketonuria -Continue IV hydration normal saline at 100 cc/hr -Obtain CT of the abdomen without contrast - hemoglobin A1c- 8.2 -Obtain hepatic function panel -Begin carb controlled diabetic diet -Zofran for nausea DM EDUCATION Heme/ID: Leukocytosis Sepsis Obtain blood and urine cultures Continue prophylactic coverage with Vanco and Zosyn, will de-escalate upon speciation Obtain urine strep pneumo, Legionella, and influenza A/B antigen Endocrine: Diabetes mellitus Obtain hemoglobin A1c -- SSI Prophylaxis: GI Prophylaxis Famotidine DVT Prophylaxis -- SCDs Initiate heparin 5000 units twice daily PT evaluation and treatment Lines: Peripheral IVs providing adequate access. AYSHA WAS NEGATIVE FOR CLOTS OR SHUNTS EF OF 60% Code Status: FULL CODE Discussed Condition With: RN AND PT AND CM Discharge Planning: PENDING NEUROLOGY CLEARANCE
[2018-08-12] MEDS: Metoprolol Tartrate 50 MG Tablet PO SCH (20:46)
[2018-08-12] MEDS: Lisinopril 20 MG Tablet PO SCH (20:46)
[2018-08-12] MEDS ORDERED: Pharmacy Ordered Lab Info OTHER ONE (23:45)
[2018-08-13] MEDS: Vancomycin Inj 2,500 MG in Sodium Chlor 0.9% Inj 500 ML IV.SIG SCH (00:25)
[2018-08-13] MEDS: hydrALAZINE HCl Inj 20 MG/ML Vial IV.PUSH PRN ×2 (00:26→05:33)
[2018-08-13] MEDS: Insulin NovoLOG Aspart Correctional Sugar Inj SQ SCH ×5 (02:29→21:09)
[2018-08-13 03:50] LABS: Dil Russell Viper Venom Conf ( ND (NEGATIVE); Dil Russell Viper Venom Time M ND (CORRECTED); Lupus Anticoagulant PTT Screen 37 seconds (< OR = 40)
[2018-08-13 04:23] LABS: Baso % (Auto) 0.4 % (0.0-2.0); Eos # (Auto) 0.4 th/mm3 (0.0-0.4); Eos % (Auto) 3.5 % (0.0-4.0); Hematocrit 43.9 % (39.0-51.0); Lymph # (Auto) 1.1 th/mm3 (1.0-4.8); Lymph % (Auto) 10.6 % (9.0-44.0); Mean Corpuscular HGB Conc 34.2 % (32.0-36.0); Mean Corpuscular Hemoglobin 29.6 pg (27.0-34.0); Mean Corpuscular Volume 86.7 fL (80.0-100.0); Mono # (Auto) 1.2 th/mm3 (0.0-0.9); Mono % (Auto) 11.4 % (0.0-8.0); Neut # (Auto) 7.7 th/mm3 (1.8-7.7); Neut % (Auto) 74.1 % (16.0-70.0); Platelet Count 227 th/mm3 (150-450); Red Blood Count 5.06 mil/mm3 (4.50-5.90); White Blood Count 10.4 th/mm3 (4.0-11.0)
[2018-08-13 04:44] LABS: Alanine Aminotransferase 23 U/L (12-78); Albumin 3.1 g/dL (3.4-5.0); Anion Gap 10 meq/L (5-15); Aspartate Aminotransferase 11 U/L (15-37); Blood Urea Nitrogen 12 mg/dL (7-18); Calcium 7.9 mg/dL (8.5-10.1); Carbon Dioxide 25.2 meq/L (21.0-32.0); Chloride 105 meq/L (98-107); Glomerular Filtration Rate 86 mL/min (>89); Glucose,Random 130 mg/dL (74-106); Magnesium 1.9 mg/dL (1.5-2.5); Phosphorus 3.2 mg/dL (2.5-4.9); Potassium 3.3 meq/L (3.5-5.1); Sodium 140 meq/L (136-145)
[2018-08-13 04:46] LABS: Alkaline Phosphatase 58 U/L (45-117)
[2018-08-13] MEDS: Piperacil/Tazo 3.375 GM Premix 50 ML IV.SIG SCH (05:33)
[2018-08-13] MEDS: Potassium Chloride 25 MEQ Effervescent Tablet PO PRN (05:47)
--- NOTE | 2018-08-13 08:05 | P.PNIM ---
Subjective Interval history: f/u; CVA in no acute distress. denies pain. BP trend noted. d/w the RN and no acute issues over night. Physical Exam Vital signs: Vital Signs 08/12/18 08:00 08/12/18 08:06 08/12/18 08:39 Temperature Pulse Rate 96 H 103 H 98 H Respiratory Rate 19 20 20 Blood Pressure 182/120 H 192/95 H 173/89 H Pulse Oximetry 95 94 L 94 L 08/12/18 09:00 08/12/18 09:19 08/12/18 10:00 Temperature Pulse Rate 97 H 87 Respiratory Rate 18 18 Blood Pressure 162/89 H 141/73 H Pulse Oximetry 94 L 92 L 93 L 08/12/18 11:00 08/12/18 12:00 08/12/18 13:00 Temperature Pulse Rate 102 H 103 H 100 H Respiratory Rate 19 19 Blood Pressure 156/83 H 151/88 H 150/93 H Pulse Oximetry 94 L 94 L 94 L 08/12/18 14:00 08/12/18 15:00 08/12/18 16:00 Temperature 98.4 F Pulse Rate 107 H 105 H 106 H Respiratory Rate 22 21 22 Blood Pressure 145/73 H 162/83 H 157/75 H Pulse Oximetry 92 L 95 94 L 08/12/18 17:00 08/12/18 18:00 08/12/18 19:00 Temperature Pulse Rate 101 H 106 H Respiratory Rate 22 22 21 Blood Pressure 165/84 H 142/76 H 161/76 H Pulse Oximetry 95 93 L 94 L 08/12/18 20:00 08/12/18 20:46 08/12/18 21:00 Temperature 99.0 F Pulse Rate 105 H 106 H Respiratory Rate 22 21 Blood Pressure 168/94 H 186/103 H Pulse Oximetry 94 L 93 L 93 L 08/12/18 21:05 08/12/18 22:00 08/12/18 22:01 Temperature Pulse Rate 102 H 85 86 Respiratory Rate 25 H 21 21 Blood Pressure 177/100 H 178/90 H 178/90 H Pulse Oximetry 94 L 94 L 94 L 08/12/18 23:00 08/12/18 23:01 08/12/18 23:29 Temperature Pulse Rate 83 84 86 Respiratory Rate 20 22 20 Blood Pressure 168/97 H 168/97 H 174/108 H Pulse Oximetry 93 L 93 L 93 L 08/13/18 00:00 08/13/18 01:00 08/13/18 02:00 Temperature 99.2 F Pulse Rate 87 97 H 110 H Respiratory Rate 20 18 22 Blood Pressure 160/87 H 166/84 H 188/91 H Pulse Oximetry 94 L 93 L 94 L 08/13/18 02:19 08/13/18 03:00 08/13/18 03:51 Temperature Pulse Rate 103 H 95 H 101 H Respiratory Rate 15 19 18 Blood Pressure 167/92 H 175/95 H 175/95 H Pulse Oximetry 94 L 92 L 93 L 08/13/18 04:00 08/13/18 05:00 08/13/18 05:25 Temperature 98.9 F Pulse Rate 104 H 93 H 99 H Respiratory Rate 20 19 19 Blood Pressure 168/94 H 189/93 H 184/101 H Pulse Oximetry 94 L 94 L 95 08/13/18 06:00 08/13/18 07:00 Temperature Pulse Rate 106 H 103 H Respiratory Rate 19 17 Blood Pressure 165/91 H 143/85 H Pulse Oximetry 94 L 95 Intake & Output 08/12/18 08/13/18 08/13/18 18:59 06:59 18:59 Intake Total 2300 / 2300 2325 / 2325 Output Total 1300 / 1300 2700 / 2700 Balance 1000 / 1000 -375 / -375 Weight 122.3 kg Intake: IV 2300 / 2300 1625 / 1625 NS Inj 1,000 ML @ 100 mls/hr IV 1000 / 1000 1000 / 1000 .CONT .Q10H [facility] Rx#:[id number] Zosyn 3.375 GM Premix 50 ML @ 50 / 50 100 / 100 100 mls/hr IV.SIG Q6H FABIOLA Rx#: [id number] KCl 20 mEq Premix Inj 20 meq In 200 / 200 100 ml @ 50 mls/hr IV.SIG Q2H PRN Rx#:[id number] Vancomycin Inj 2,500 MG In NS 1050 / 1050 525 / 525 Inj 500 ML @ 250 mls/hr IV.SIG Q12H F[facility]IOLA Rx#:[id number] Oral 700 / 700 Output: Urine 1300 / 1300 2700 / 2700 Other: # Bowel Movements 0 - Constitutional no acute distress - Routine Respiratory Exam Present: CTA bilaterally - Routine Cardiovascular Exam Present: RRR - Routine Abdominal Exam Present: soft - Routine Extremities Exam Comments: no pedal edema. - Routine Neurological Exam Present: alert, oriented X3 Results - Labs CBC & Chem 7: 08/13/18 03:34 08/13/18 03:34 Laboratory Results - last 24 hr 08/10/18 08/10/18 08/12/18 09:24 09:24 13:11 WBC RBC Hgb Hct MCV MCH MCHC RDW Plt Count MPV Neut % (Auto) Lymph % (Auto) Sunflower % (Auto) Eos % (Auto) Baso % (Auto) Neut # (Auto) Lymph # (Auto) Sunflower # (Auto) Eos # (Auto) Baso # (Auto) WBC Differential Differential Comment Thrombin Time ND Lupus Anticoagulant LA PTT Screen 37 dRVVT Screen 38 LA dRVVT Confirm ND dRVVT Mix ND Hexagonal Phase Confirm ND Antithrombin III Activ 82 Factor VIII Activity 152 Sodium Potassium Chloride Carbon Dioxide Anion Gap BUN Creatinine Estimated GFR POC Glucose 114 H Random Glucose Calcium Phosphorus Magnesium Total Bilirubin AST ALT Alkaline Phosphatase Total Protein Albumin Vancomycin Trough Prothrombin [id number] Mut 08/12/18 08/12/18 08/12/18 17:00 20:46 23:18 WBC RBC Hgb Hct MCV MCH MCHC RDW Plt Count MPV Neut % (Auto) Lymph % (Auto) Sunflower % (Auto) Eos % (Auto) Baso % (Auto) Neut # (Auto) Lymph # (Auto) Sunflower # (Auto) Eos # (Auto) Baso # (Auto) WBC Differential Differential Comment Thrombin Time Lupus Anticoagulant LA PTT Screen dRVVT Screen LA dRVVT Confirm dRVVT Mix Hexagonal Phase Confirm Antithrombin III Activ Factor VIII Activity Sodium Potassium Chloride Carbon Dioxide Anion Gap BUN Creatinine Estimated GFR POC Glucose 156 H 117 H Random Glucose Calcium Phosphorus Magnesium Total Bilirubin AST ALT Alkaline Phosphatase Total Protein Albumin Vancomycin Trough 15.8 H Prothrombin [id number] Mut 08/13/18 08/13/18 08/13/18 02:29 03:34 03:34 WBC 10.4 RBC 5.06 Hgb 15.0 Hct 43.9 MCV 86.7 MCH 29.6 MCHC 34.2 RDW 13.0 Plt Count 227 MPV 9.0 Neut % (Auto) 74.1 H Lymph % (Auto) 10.6 Sunflower % (Auto) 11.4 H Eos % (Auto) 3.5 Baso % (Auto) 0.4 Neut # (Auto) 7.7 Lymph # (Auto) 1.1 Sunflower # (Auto) 1.2 H Eos # (Auto) 0.4 Baso # (Auto) 0.0 WBC Differential . Differential Comment Auto diff final Thrombin Time Lupus Anticoagulant LA PTT Screen dRVVT Screen LA dRVVT Confirm dRVVT Mix Hexagonal Phase Confirm Antithrombin III Activ Factor VIII Activity Sodium 140 Potassium 3.3 L Chloride 105 Carbon Dioxide 25.2 Anion Gap 10 BUN 12 Creatinine 0.94 Estimated GFR 86 L POC Glucose 124 H Random Glucose 130 H Calcium 7.9 L Phosphorus 3.2 Magnesium 1.9 Total Bilirubin 1.4 H AST 11 L ALT 23 Alkaline Phosphatase 58 Total Protein 7.0 Albumin 3.1 L Vancomycin Trough Prothrombin [id number] Mut Microbiology 08/07/18 19:00 Blood - Peripheral Aerobic Blood Culture - Final No growth in 5 days 08/07/18 19:00 Blood - Peripheral Anaerobic Blood Culture - Final No growth in 5 days 08/07/18 19:38 Blood - Peripheral Aerobic Blood Culture - Final No growth in 5 days 08/07/18 19:38 Blood - Peripheral Anaerobic Blood Culture - Final No growth in 5 days - Procedures AYSHA 12-7 Assessment and Plan - Plan acute encephalopathy CVA - s/p AYSHA; negative -MRI neck negative - continue with BP control -neurology following. Hypertensive urgency -continue Lopressor, Lisinopril and Nifedipine -Labetalol and hydralazine as needed -continue to monitor the BP and adjust as needed Hypokalemia HYPOMAGNESIA Replete per electrolyte protocol -- Strict I/Os Diabetes mellitus Obesity Nausea and vomiting-resolved Ketonuria -Continue IV hydration normal saline at 100 cc/hr -continue accu-check with SSI DM EDUCATION Leukocytosis SIRS cultures negative UA/CXR negative. stop antibiotics and continue to monitor. Prophylaxis: GI Prophylaxis Famotidine DVT Prophylaxis -- SCDs heparin 5000 units twice daily PT evaluation and treatment transfer to floor within the next 24 hrs if stable. Discharge Planning: awaiting neurology f/u and recommendations.
[2018-08-13] MEDS: Sod Chloride 0.9% Inj 1,000 ML IV.CONT SCH ×2 (08:43→19:09)
[2018-08-13] MEDS: Famotidine PF Inj 20 MG/2 ML Vial IV.PUSH SCH ×2 (08:43→21:06)
[2018-08-13] MEDS: Metoprolol Tartrate 50 MG Tablet PO SCH ×2 (08:44→21:05)
[2018-08-13] MEDS: NIFEdipine 10 MG Capsule PO SCH ×3 (08:44→17:06)
[2018-08-13] MEDS: Lisinopril 20 MG Tablet PO SCH ×2 (08:44→21:05)
[2018-08-13] MEDS: Senna/Docusate Sodium 8.6/50 MG Tablet PO SCH ×2 (08:45→21:06)
--- NOTE | 2018-08-13 10:42 | HM ---
Date Performed: 08/10/2018 Time Performed: 13:24:00 HOOKUP DATE: 08/10/18 01:24:00 PM Cassie ANALYSIS START TIME: 08/10/2018 1:29:00 PM ANALYSIS END TIME: 08/11/2018 1:33:00 PM PATIENT AGE: 48 PATIENT HEIGHT: 71 PATIENT WEIGHT: 275 DRUG LIST: ROOM 527 PATIENT DIAGNOSIS: NEURO TEST NARRATIVE: The patient's average heart rate was 88 BPM. Heart rates greater than 120 B PM were noted 2% of the time. No episodes of bradycardia were noted. No pauses exceeding 2.0 sec onds were noted. 4 ventricular ectopics, which represented < 1% of the total beat count, were not ed. The highest ventricular ectopic frequency occurred from 08:00 PM to 09:00 PM Cassie. During this t ana 2 VE(s) occurred. Ventricular ectopics were observed as 2 isolated beat(s) and as 1 couplet(s). No runs were noted. 40 supraventricular ectopics, which represented < 1% of the total beat count , were noted. The highest supraventricular ectopic frequency occurred from 08:00 PM to 09:00 PM Cassie. During this time 6 SVE(s) occurred. No episodes of ST depression (defined as -1.0 mm or more) w ere noted in channel 1. No episodes of ST depression (defined as -1.0 mm or more) were noted in ibarra freddie 2. No episodes of ST depression (defined as -1.0 mm or more) were noted in channel 3. PATIENT WA S UNABLE TO MAINTAIN A DIARY TEST INTERPRETATION: Agree with above interpretation. Signed by : Dipak Walden
--- NOTE | 2018-08-13 14:49 | P.PNNEU ---
Subjective Subjective Comments: c/o double vision. No other c/o Active Medications: Active Medications Acetaminophen (Tylenol) 650 mg PO Q6H PRN PRN Reason: PAIN 1-10 AND/OR FEVER >101F Al Hydroxide/Mg Hydroxide (Milk Of Magncriselda Liq) 30 ml PO Q12H PRN PRN Reason: Mild Constipation Albuterol (Duoneb Neb (Prn)) 1 ampul NEB Q2HR NEB PRN PRN Reason: WHEEZING Bisacodyl (Dulcolax Supp) 10 mg RECTAL DAILY PRN PRN Reason: SEVERE CONSITIPATION Dextrose (D50w Vial) 50 ml IV.PUSH UNSCH PRN PRN Reason: PER HYPOGLYCEMIA PROTOCOL Enalaprilat (Vasotec Inj) 2.5 mg IV.PUSH Q6H PRN PRN Reason: SBP>160, DBP>90 Last Admin: 08/13/18 02:24 Dose: 2.5 mg Famotidine (Pepcid Pf Inj) 20 mg IV.PUSH Q12HR [facility] Last Admin: 08/13/18 08:43 Dose: 20 mg Glucagon (Glucagon Inj) 1 mg OTHER PRN PRN PRN Reason: for Hypoglycemia Protocol Hydralazine HCl (Apresoline Inj) 20 mg IV.PUSH Q4H PRN PRN Reason: HYPERTENSION Last Admin: 08/13/18 05:33 Dose: 20 mg Magnesium Sulfate 4 gm/ Sodium (Chloride) 100 mls @ 50 mls/hr IV.SIG UNSCH PRN PRN Reason: For Magnesium 0.9 - 1.1 mg/dL Magnesium Sulfate 2 gm/ Sodium (Chloride) 100 mls @ 50 mls/hr IV.SIG UNSCH PRN PRN Reason: For Magnesium 1.2 - 1.6 mg/dL Potassium Chloride (Kcl 40 Meq Premix Inj) 40 meq in 100 mls @ 25 mls/hr IV.SIG Q2H PRN PRN Reason: For Potassium 2.8 - 3.2 mEq/L Potassium Chloride (Kcl 20 Meq Premix Inj) 20 meq in 100 mls @ 50 mls/hr IV.SIG Q2H PRN PRN Reason: For Potassium 3.3 - 3.5 mEq/L Last Infusion: 08/12/18 10:34 Dose: Infused Potassium Chloride (Kcl 40 Meq Premix Inj) 40 meq in 100 mls @ 25 mls/hr IV.SIG UNSCH PRN PRN Reason: For Potassium 3.3 - 3.5 mEq/L Potassium Chloride (Kcl 20 Meq Premix Inj) 20 meq in 100 mls @ 50 mls/hr IV.SIG Q2H PRN PRN Reason: For Potassium 2.8 - 3.2 mEq/L Last Infusion: 08/11/18 14:13 Dose: Infused Potassium Phosphate 30 mmol/ (Sodium Chloride) 260 mls @ 42 mls/hr IV.SIG UNSCH PRN PRN Reason: SEE LABEL COMMENTS Sodium Phosphate 30 mmol/ (Sodium Chloride) 260 mls @ 42 mls/hr IV.SIG UNSCH PRN PRN Reason: For Phosphorus < 2.5 mg/dL Nicardipine HCl 25 mg/ Sodium (Chloride) 250 mls @ 50 mls/hr IV.CONT TITRATE [facility]; Protocol Last Titration: 08/08/18 21:51 Dose: Infused Sodium Chloride (Ns Inj) 1,000 mls @ 100 mls/hr IV.CONT .Q10H [facility] Last Admin: 08/13/18 08:43 Dose: 100 mls/hr Insulin Aspart (Novolog Insulin Correctional Sugar Inj) 0 unit SQ ACHS AND 3AM [facility]; Protocol Last Admin: 08/13/18 11:33 Dose: Not Given Lactulose (Lactulose Liq) 30 ml PO DAILY PRN PRN Reason: SEVERE CONSITIPATION Lisinopril (Prinivil) 20 mg PO BID [facility] Last Admin: 08/13/18 08:44 Dose: 20 mg Magnesium Oxide (Mag-Ox) 800 mg PO UNSCH PRN PRN Reason: For Magnesium 1.2 - 1.6 mg/dL Metoprolol Tartrate (Lopressor) 50 mg PO BID [facility] Last Admin: 08/13/18 08:44 Dose: 50 mg Nifedipine (Procardia) 10 mg PO TID [facility] Last Admin: 08/13/18 12:34 Dose: 10 mg Ondansetron HCl (Zofran Inj) 4 mg IV.PUSH Q6H PRN PRN Reason: NAUSEA OR VOMITING Potassium Bicarb/Potassium Chloride (K-Lyte Cl Eff) 50 meq PO UNSCH PRN PRN Reason: For Potassium 3.3 - 3.5 mEq/L Last Admin: 08/13/18 05:47 Dose: 50 meq Potassium Phosphate (K-Phos Original) 2,000 mg PO UNSCH PRN PRN Reason: SEE LABEL COMMENTS Potassium Phosphate (K-Phos Original) 2,000 mg PO Q4H PRN PRN Reason: Phosphorus Less Than 2.5 mg/dL Senna/Docusate Sodium (Sobeida-Colace) 1 tab PO BID [facility] Last Admin: 08/13/18 08:45 Dose: Not Given Sennosides (Senokot) 17.2 mg PO Q12H PRN PRN Reason: Moderate Constipation Sodium Chloride (Ns Flush) 2 ml IV.FLUSH BID [facility] Last Admin: 08/13/18 08:44 Dose: 2 ml Sodium Chloride (Ns Flush) 2 ml IV.FLUSH PRN PRN PRN Reason: FLUSH AFTER USING IV ACCESS Allergies/Adverse Reactions: Allergies Allergy/AdvReac Type Severity Reaction Status Date / Time No Known Allergies Allergy Verified 08/07/18 09:59 Physical Exam Vital signs: Vital Signs 08/12/18 15:00 08/12/18 16:00 08/12/18 17:00 Temperature 98.4 F Pulse Rate 105 H 106 H 101 H Respiratory Rate 21 22 22 Blood Pressure 162/83 H 157/75 H 165/84 H Pulse Oximetry 95 94 L 95 08/12/18 18:00 08/12/18 19:00 08/12/18 20:00 Temperature 99.0 F Pulse Rate 106 H 105 H Respiratory Rate 22 21 22 Blood Pressure 142/76 H 161/76 H 168/94 H Pulse Oximetry 93 L 94 L 94 L 08/12/18 20:46 08/12/18 21:00 08/12/18 21:05 Temperature Pulse Rate 106 H 102 H Respiratory Rate 21 25 H Blood Pressure 186/103 H 177/100 H Pulse Oximetry 93 L 93 L 94 L 08/12/18 22:00 08/12/18 22:01 08/12/18 23:00 Temperature Pulse Rate 85 86 83 Respiratory Rate 21 21 20 Blood Pressure 178/90 H 178/90 H 168/97 H Pulse Oximetry 94 L 94 L 93 L 08/12/18 23:01 08/12/18 23:29 08/13/18 00:00 Temperature 99.2 F Pulse Rate 84 86 87 Respiratory Rate 22 20 20 Blood Pressure 168/97 H 174/108 H 160/87 H Pulse Oximetry 93 L 93 L 94 L 08/13/18 01:00 08/13/18 02:00 08/13/18 02:19 Temperature Pulse Rate 97 H 110 H 103 H Respiratory Rate 18 22 15 Blood Pressure 166/84 H 188/91 H 167/92 H Pulse Oximetry 93 L 94 L 94 L 08/13/18 03:00 08/13/18 03:51 08/13/18 04:00 Temperature 98.9 F Pulse Rate 95 H 101 H 104 H Respiratory Rate 19 18 20 Blood Pressure 175/95 H 175/95 H 168/94 H Pulse Oximetry 92 L 93 L 94 L 08/13/18 05:00 08/13/18 05:25 08/13/18 06:00 Temperature Pulse Rate 93 H 99 H 106 H Respiratory Rate 19 19 19 Blood Pressure 189/93 H 184/101 H 165/91 H Pulse Oximetry 94 L 95 94 L 08/13/18 07:00 08/13/18 08:00 08/13/18 09:00 Temperature 98.9 F Pulse Rate 103 H 106 H 111 H Respiratory Rate 17 18 19 Blood Pressure 143/85 H 147/102 H 157/103 H Pulse Oximetry 95 94 L 93 L 08/13/18 09:08 08/13/18 10:00 08/13/18 11:00 Temperature Pulse Rate 86 98 H Respiratory Rate 17 21 Blood Pressure 165/84 H 156/104 H Pulse Oximetry 93 L 93 L 95 08/13/18 12:00 Temperature 99.0 F Pulse Rate 92 H Respiratory Rate 22 Blood Pressure 145/75 H Pulse Oximetry 93 L Intake & Output 08/12/18 08/13/18 08/13/18 18:59 06:59 18:59 Intake Total 2300 / 2300 2325 / 2325 1000 / 1000 Output Total 1300 / 1300 2700 / 2700 Balance 1000 / 1000 -375 / -375 1000 / 1000 Weight 122.3 kg Intake: IV 2300 / 2300 1625 / 1625 1000 / 1000 NS Inj 1,000 ML @ 100 mls/hr IV 1000 / 1000 1000 / 1000 1000 / 1000 .CONT .Q10H [facility] Rx#:[id number] Zosyn 3.375 GM Premix 50 ML @ 50 / 50 100 / 100 100 mls/hr IV.SIG Q6H [facility] Rx#: [id number] KCl 20 mEq Premix Inj 20 meq In 200 / 200 100 ml @ 50 mls/hr IV.SIG Q2H PRN Rx#:[id number] Vancomycin Inj 2,500 MG In NS 1050 / 1050 525 / 525 Inj 500 ML @ 250 mls/hr IV.SIG Q12H [facility] Rx#:[id number] Oral 700 / 700 Output: Urine 1300 / 1300 2700 / 2700 Other: # Bowel Movements 0 - Routine Neurological Exam alert, speech normal CN intact--PERRL, EOM intact MOTOR 5/5 BUE Objective Laboratory Results - last 24 hr 08/10/18 08/10/18 08/12/18 09:24 09:24 17:00 WBC RBC Hgb Hct MCV MCH MCHC RDW Plt Count MPV Neut % (Auto) Lymph % (Auto) [place] % (Auto) Eos % (Auto) Baso % (Auto) Neut # (Auto) Lymph # (Auto) [place] # (Auto) Eos # (Auto) Baso # (Auto) WBC Differential Differential Comment Thrombin Time ND Lupus Anticoagulant LA PTT Screen 37 dRVVT Screen 38 LA dRVVT Confirm ND dRVVT Mix ND Hexagonal Phase Confirm ND Antithrombin III Activ 82 Factor VIII Activity 152 Sodium Potassium Chloride Carbon Dioxide Anion Gap BUN Creatinine Estimated GFR POC Glucose 156 H Random Glucose Calcium Phosphorus Magnesium Total Bilirubin AST ALT Alkaline Phosphatase Total Protein Albumin Vancomycin Trough Beta-2-GPI IgG Ab <9 Beta-2-GPI IgA Ab <9 Beta-2-GPI IgM Ab <9 Phosphatidylserine IgG Less than 10.0 Phosphatidylserine IgA Less than 20.0 Phosphatidylserine IgM Less than 25.0 Prothrombin [id number] Mut 08/12/18 08/12/18 08/13/18 20:46 23:18 02:29 WBC RBC Hgb Hct MCV MCH MCHC RDW Plt Count MPV Neut % (Auto) Lymph % (Auto) [place] % (Auto) Eos % (Auto) Baso % (Auto) Neut # (Auto) Lymph # (Auto) [place] # (Auto) Eos # (Auto) Baso # (Auto) WBC Differential Differential Comment Thrombin Time Lupus Anticoagulant LA PTT Screen dRVVT Screen LA dRVVT Confirm dRVVT Mix Hexagonal Phase Confirm Antithrombin III Activ Factor VIII Activity Sodium Potassium Chloride Carbon Dioxide Anion Gap BUN Creatinine Estimated GFR POC Glucose 117 H 124 H Random Glucose Calcium Phosphorus Magnesium Total Bilirubin AST ALT Alkaline Phosphatase Total Protein Albumin Vancomycin Trough 15.8 H Beta-2-GPI IgG Ab Beta-2-GPI IgA Ab Beta-2-GPI IgM Ab Phosphatidylserine IgG Phosphatidylserine IgA Phosphatidylserine IgM Prothrombin [id number] Mut 08/13/18 08/13/18 08/13/18 03:34 03:34 08:26 WBC 10.4 RBC 5.06 Hgb 15.0 Hct 43.9 MCV 86.7 MCH 29.6 MCHC 34.2 RDW 13.0 Plt Count 227 MPV 9.0 Neut % (Auto) 74.1 H Lymph % (Auto) 10.6 [place] % (Auto) 11.4 H Eos % (Auto) 3.5 Baso % (Auto) 0.4 Neut # (Auto) 7.7 Lymph # (Auto) 1.1 [place] # (Auto) 1.2 H Eos # (Auto) 0.4 Baso # (Auto) 0.0 WBC Differential . Differential Comment Auto diff final Thrombin Time Lupus Anticoagulant LA PTT Screen dRVVT Screen LA dRVVT Confirm dRVVT Mix Hexagonal Phase Confirm Antithrombin III Activ Factor VIII Activity Sodium 140 Potassium 3.3 L Chloride 105 Carbon Dioxide 25.2 Anion Gap 10 BUN 12 Creatinine 0.94 Estimated GFR 86 L POC Glucose 146 H Random Glucose 130 H Calcium 7.9 L Phosphorus 3.2 Magnesium 1.9 Total Bilirubin 1.4 H AST 11 L ALT 23 Alkaline Phosphatase 58 Total Protein 7.0 Albumin 3.1 L Vancomycin Trough Beta-2-GPI IgG Ab Beta-2-GPI IgA Ab Beta-2-GPI IgM Ab Phosphatidylserine IgG Phosphatidylserine IgA Phosphatidylserine IgM Prothrombin [id number] Mut 08/13/18 08/13/18 11:30 13:10 WBC RBC Hgb Hct MCV MCH MCHC RDW Plt Count MPV Neut % (Auto) Lymph % (Auto) [place] % (Auto) Eos % (Auto) Baso % (Auto) Neut # (Auto) Lymph # (Auto) [place] # (Auto) Eos # (Auto) Baso # (Auto) WBC Differential Differential Comment Thrombin Time Lupus Anticoagulant LA PTT Screen dRVVT Screen LA dRVVT Confirm dRVVT Mix Hexagonal Phase Confirm Antithrombin III Activ Factor VIII Activity Sodium Potassium 3.5 Chloride Carbon Dioxide Anion Gap BUN Creatinine Estimated GFR POC Glucose 124 H Random Glucose Calcium Phosphorus Magnesium Total Bilirubin AST ALT Alkaline Phosphatase Total Protein Albumin Vancomycin Trough Beta-2-GPI IgG Ab Beta-2-GPI IgA Ab Beta-2-GPI IgM Ab Phosphatidylserine IgG Phosphatidylserine IgA Phosphatidylserine IgM Prothrombin [id number] Mut Microbiology 08/07/18 19:00 Aerobic Blood Culture - Final Blood - Peripheral No growth in 5 days Anaerobic Blood Culture - Final No growth in 5 days 08/07/18 19:38 Aerobic Blood Culture - Final Blood - Peripheral No growth in 5 days Anaerobic Blood Culture - Final No growth in 5 days Diagnostic Tests: AYSHA---normal, no sign of PFO Review/Management - Review/Management Plan: Probable small strokes. Exam stable. Dr Serrano considering LP. He will resume care tomorrow
[2018-08-14] MEDS: Insulin NovoLOG Aspart Correctional Sugar Inj SQ SCH ×5 (02:22→21:37)
[2018-08-14] MEDS: hydrALAZINE HCl Inj 20 MG/ML Vial IV.PUSH PRN ×2 (02:23→08:23)
[2018-08-14] MEDS: Sod Chloride 0.9% Inj 1,000 ML IV.CONT SCH ×3 (06:00→16:58)
[2018-08-14 07:26] LABS: Baso # (Auto) 0.1 th/mm3 (0.0-0.2); Baso % (Auto) 0.7 % (0.0-2.0); Eos # (Auto) 0.4 th/mm3 (0.0-0.4); Eos % (Auto) 4.1 % (0.0-4.0); Hemoglobin 15.4 gm/dL (13.0-17.0); Lymph # (Auto) 1.4 th/mm3 (1.0-4.8); Lymph % (Auto) 13.6 % (9.0-44.0); Mean Corpuscular Hemoglobin 29.9 pg (27.0-34.0); Mean Corpuscular Volume 85.6 fL (80.0-100.0); Mean Platelet Volume 9.2 fL (7.0-11.0); Mono # (Auto) 1.2 th/mm3 (0.0-0.9); Mono % (Auto) 11.6 % (0.0-8.0); Neut # (Auto) 7.1 th/mm3 (1.8-7.7); Platelet Count 231 th/mm3 (150-450); Red Blood Count 5.14 mil/mm3 (4.50-5.90); Red Cell Distribution Width 13.2 % (11.6-17.2); White Blood Count 10.1 th/mm3 (4.0-11.0)
[2018-08-14 07:51] LABS: Calcium 8.4 mg/dL (8.5-10.1); Carbon Dioxide 26.6 meq/L (21.0-32.0); Potassium 3.3 meq/L (3.5-5.1)
--- NOTE | 2018-08-14 07:54 | P.PNIM ---
Subjective Interval history: f/u; CVA in no acute distress. no new complaints. BP trend noted. d/w the RN and no acute issues over night. Physical Exam Vital signs: Vital Signs 08/13/18 08:00 08/13/18 09:00 08/13/18 09:08 Temperature 98.9 F Pulse Rate 106 H 111 H Respiratory Rate 18 19 Blood Pressure 147/102 H 157/103 H Pulse Oximetry 94 L 93 L 93 L 08/13/18 10:00 08/13/18 11:00 08/13/18 12:00 Temperature 99.0 F Pulse Rate 86 98 H 92 H Respiratory Rate 17 21 22 Blood Pressure 165/84 H 156/104 H 145/75 H Pulse Oximetry 93 L 95 93 L 08/13/18 13:00 08/13/18 14:00 08/13/18 15:00 Temperature Pulse Rate 102 H 101 H 103 H Respiratory Rate 19 22 22 Blood Pressure 160/92 H 151/82 H 166/73 H Pulse Oximetry 96 93 L 93 L 08/13/18 16:00 08/13/18 20:00 08/13/18 20:39 Temperature 97.4 F L 98.6 F Pulse Rate 92 H 107 H Respiratory Rate 20 27 H Blood Pressure 160/86 H 181/93 H Pulse Oximetry 92 L 95 93 L 08/14/18 00:00 08/14/18 04:00 Temperature 98.3 F 98.6 F Pulse Rate 99 H 101 H Respiratory Rate 19 15 Blood Pressure 165/89 H 134/91 H Pulse Oximetry 93 L 94 L Intake & Output 08/13/18 08/14/18 08/14/18 18:59 06:59 18:59 Intake Total 3440 / 3440 1000 / 1000 Output Total 1949 / 1949 1200 / 1200 Balance 1490 / 1490 -200 / -200 Weight 121 kg Intake: IV 1999 1000 / 1000 NS Inj 1,000 ML @ 100 mls/hr IV 1999 1000 / 1000 .CONT .Q10H [facility] Rx#:[id number] Oral 1440 / 1440 Output: Urine 1949 / 1949 1200 / 1200 Other: # Bowel Movements 0 - Constitutional no acute distress - Routine Respiratory Exam Present: CTA bilaterally - Routine Cardiovascular Exam Present: RRR - Routine Abdominal Exam Present: soft - Routine Extremities Exam Comments: no pedal edema. - Routine Neurological Exam Present: alert, oriented X3 Results - Labs CBC & Chem 7: 08/14/18 06:51 08/13/18 13:10 Laboratory Results - last 24 hr 08/10/18 08/13/18 08/13/18 09:24 08:26 11:30 WBC RBC Hgb Hct MCV MCH MCHC RDW Plt Count MPV Neut % (Auto) Lymph % (Auto) [place] % (Auto) Eos % (Auto) Baso % (Auto) Neut # (Auto) Lymph # (Auto) [place] # (Auto) Eos # (Auto) Baso # (Auto) WBC Differential Differential Comment Potassium POC Glucose 146 H 124 H Beta-2-GPI IgG Ab <9 Beta-2-GPI IgA Ab <9 Beta-2-GPI IgM Ab <9 Phosphatidylserine IgG Less than 10.0 Phosphatidylserine IgA Less than 20.0 Phosphatidylserine IgM Less than 25.0 MTHFR Mutation Detect 08/13/18 08/13/18 08/13/18 13:10 17:05 21:09 WBC RBC Hgb Hct MCV MCH MCHC RDW Plt Count MPV Neut % (Auto) Lymph % (Auto) [place] % (Auto) Eos % (Auto) Baso % (Auto) Neut # (Auto) Lymph # (Auto) [place] # (Auto) Eos # (Auto) Baso # (Auto) WBC Differential Differential Comment Potassium 3.5 POC Glucose 115 H 116 H Beta-2-GPI IgG Ab Beta-2-GPI IgA Ab Beta-2-GPI IgM Ab Phosphatidylserine IgG Phosphatidylserine IgA Phosphatidylserine IgM MTHFR Mutation Detect 08/14/18 08/14/18 02:16 06:51 WBC 10.1 RBC 5.14 Hgb 15.4 Hct 44.0 MCV 85.6 MCH 29.9 MCHC 35.0 RDW 13.2 Plt Count 231 MPV 9.2 Neut % (Auto) 70.0 Lymph % (Auto) 13.6 [place] % (Auto) 11.6 H Eos % (Auto) 4.1 H Baso % (Auto) 0.7 Neut # (Auto) 7.1 Lymph # (Auto) 1.4 [place] # (Auto) 1.2 H Eos # (Auto) 0.4 Baso # (Auto) 0.1 WBC Differential . Differential Comment Auto diff final Potassium POC Glucose 117 H Beta-2-GPI IgG Ab Beta-2-GPI IgA Ab Beta-2-GPI IgM Ab Phosphatidylserine IgG Phosphatidylserine IgA Phosphatidylserine IgM MTHFR Mutation Detect - Procedures AYSHA 12-7 Assessment and Plan - Plan acute encephalopathy-resolved CVA - s/p AYSHA; negative -MRI neck negative - continue with BP control -neurology following. -continue PT Hypertensive urgency -continue Lopressor, Lisinopril and Nifedipine -Labetalol and hydralazine as needed -continue to monitor the BP and adjust as needed Hypokalemia hypomagnesemia Repleted per electrolyte protocol -- Strict I/Os Diabetes mellitus Obesity Nausea and vomiting-resolved Ketonuria -Continue IV hydration normal saline at 100 cc/hr -continue accu-check with SSI -diabetes education Leukocytosis-resolved SIRS cultures negative UA/CXR negative. stopped antibiotics and continue to monitor. Prophylaxis: GI Prophylaxis Famotidine DVT Prophylaxis -- SCDs heparin 5000 units twice daily PT evaluation and treatment transfer to floor within the next 24 hrs if BP stable. Discussed Condition With: the RN. Discharge Planning: awaiting neurology f/u and recommendations.
[2018-08-14] MEDS: Potassium Chloride 25 MEQ Effervescent Tablet PO PRN (08:22)
[2018-08-14] MEDS: Famotidine PF Inj 20 MG/2 ML Vial IV.PUSH SCH ×2 (08:23→21:36)
[2018-08-14] MEDS: Metoprolol Tartrate 50 MG Tablet PO SCH ×2 (08:23→21:37)
[2018-08-14] MEDS: NIFEdipine 10 MG Capsule PO SCH ×3 (08:23→17:24)
[2018-08-14] MEDS: Senna/Docusate Sodium 8.6/50 MG Tablet PO SCH ×2 (08:23→21:38)
[2018-08-14] MEDS: Lisinopril 20 MG Tablet PO SCH ×2 (08:24→21:37)
--- NOTE | 2018-08-14 08:27 | P.PNNEU ---
Subjective Subjective Comments: sr Active Medications: Active Medications Acetaminophen (Tylenol) 650 mg PO Q6H PRN PRN Reason: PAIN 1-10 AND/OR FEVER >101F Al Hydroxide/Mg Hydroxide (Milk Of Shruti Licatarino) 30 ml PO Q12H PRN PRN Reason: Mild Constipation Albuterol (Duoneb Neb (Prn)) 1 ampul NEB Q2HR NEB PRN PRN Reason: WHEEZING Aspirin (Aspirin) 325 mg PO DAILY [facility] Bisacodyl (Dulcolax Supp) 10 mg RECTAL DAILY PRN PRN Reason: SEVERE CONSITIPATION Dextrose (D50w Vial) 50 ml IV.PUSH UNSCH PRN PRN Reason: PER HYPOGLYCEMIA PROTOCOL Enalaprilat (Vasotec Inj) 2.5 mg IV.PUSH Q6H PRN PRN Reason: SBP>160, DBP>90 Last Admin: 08/13/18 02:24 Dose: 2.5 mg Famotidine (Pepcid Pf Inj) 20 mg IV.PUSH Q12HR [facility] Last Admin: 08/13/18 21:06 Dose: 20 mg Glucagon (Glucagon Inj) 1 mg OTHER PRN PRN PRN Reason: for Hypoglycemia Protocol Hydralazine HCl (Apresoline Inj) 20 mg IV.PUSH Q4H PRN PRN Reason: HYPERTENSION Last Admin: 08/14/18 02:23 Dose: 20 mg Magnesium Sulfate 4 gm/ Sodium (Chloride) 100 mls @ 50 mls/hr IV.SIG UNSCH PRN PRN Reason: For Magnesium 0.9 - 1.1 mg/dL Magnesium Sulfate 2 gm/ Sodium (Chloride) 100 mls @ 50 mls/hr IV.SIG UNSCH PRN PRN Reason: For Magnesium 1.2 - 1.6 mg/dL Potassium Chloride (Kcl 40 Meq Premix Inj) 40 meq in 100 mls @ 25 mls/hr IV.SIG Q2H PRN PRN Reason: For Potassium 2.8 - 3.2 mEq/L Potassium Chloride (Kcl 20 Meq Premix Inj) 20 meq in 100 mls @ 50 mls/hr IV.SIG Q2H PRN PRN Reason: For Potassium 3.3 - 3.5 mEq/L Last Infusion: 08/12/18 10:34 Dose: Infused Potassium Chloride (Kcl 40 Meq Premix Inj) 40 meq in 100 mls @ 25 mls/hr IV.SIG UNSCH PRN PRN Reason: For Potassium 3.3 - 3.5 mEq/L Potassium Chloride (Kcl 20 Meq Premix Inj) 20 meq in 100 mls @ 50 mls/hr IV.SIG Q2H PRN PRN Reason: For Potassium 2.8 - 3.2 mEq/L Last Infusion: 08/11/18 14:13 Dose: Infused Potassium Phosphate 30 mmol/ (Sodium Chloride) 260 mls @ 42 mls/hr IV.SIG UNSCH PRN PRN Reason: SEE LABEL COMMENTS Sodium Phosphate 30 mmol/ (Sodium Chloride) 260 mls @ 42 mls/hr IV.SIG UNSCH PRN PRN Reason: For Phosphorus < 2.5 mg/dL Nicardipine HCl 25 mg/ Sodium (Chloride) 250 mls @ 50 mls/hr IV.CONT TITRATE [facility]; Protocol Last Titration: 08/08/18 21:51 Dose: Infused Sodium Chloride (Ns Inj) 1,000 mls @ 100 mls/hr IV.CONT .Q10H [facility] Last Admin: 08/14/18 06:00 Dose: 100 mls/hr Insulin Aspart (Novolog Insulin Correctional Sugar Inj) 0 unit SQ ACHS AND 3AM [facility]; Protocol Last Admin: 08/14/18 02:22 Dose: Not Given Lactulose (Lactulose Liq) 30 ml PO DAILY PRN PRN Reason: SEVERE CONSITIPATION Lisinopril (Prinivil) 20 mg PO BID [facility] Last Admin: 08/13/18 21:05 Dose: 20 mg Magnesium Oxide (Mag-Ox) 800 mg PO UNSCH PRN PRN Reason: For Magnesium 1.2 - 1.6 mg/dL Metoprolol Tartrate (Lopressor) 50 mg PO BID [facility] Last Admin: 08/13/18 21:05 Dose: 50 mg Nifedipine (Procardia) 10 mg PO TID [facility] Last Admin: 08/13/18 17:06 Dose: 10 mg Ondansetron HCl (Zofran Inj) 4 mg IV.PUSH Q6H PRN PRN Reason: NAUSEA OR VOMITING Potassium Bicarb/Potassium Chloride (K-Lyte Cl Eff) 50 meq PO UNSCH PRN PRN Reason: For Potassium 3.3 - 3.5 mEq/L Last Admin: 08/13/18 05:47 Dose: 50 meq Potassium Phosphate (K-Phos Original) 2,000 mg PO UNSCH PRN PRN Reason: SEE LABEL COMMENTS Potassium Phosphate (K-Phos Original) 2,000 mg PO Q4H PRN PRN Reason: Phosphorus Less Than 2.5 mg/dL Senna/Docusate Sodium (Sobeida-Colace) 1 tab PO BID [facility] Last Admin: 08/13/18 21:06 Dose: Not Given Sennosides (Senokot) 17.2 mg PO Q12H PRN PRN Reason: Moderate Constipation Sodium Chloride (Ns Flush) 2 ml IV.FLUSH BID [facility] Last Admin: 08/13/18 21:06 Dose: 2 ml Sodium Chloride (Ns Flush) 2 ml IV.FLUSH PRN PRN PRN Reason: FLUSH AFTER USING IV ACCESS Allergies/Adverse Reactions: Allergies Allergy/AdvReac Type Severity Reaction Status Date / Time No Known Allergies Allergy Verified 08/07/18 09:59 Physical Exam Vital signs: Vital Signs 08/13/18 09:00 08/13/18 09:08 08/13/18 10:00 Temperature Pulse Rate 111 H 86 Respiratory Rate 19 17 Blood Pressure 157/103 H 165/84 H Pulse Oximetry 93 L 93 L 93 L 08/13/18 11:00 08/13/18 12:00 08/13/18 13:00 Temperature 99.0 F Pulse Rate 98 H 92 H 102 H Respiratory Rate 21 22 19 Blood Pressure 156/104 H 145/75 H 160/92 H Pulse Oximetry 95 93 L 96 08/13/18 14:00 08/13/18 15:00 08/13/18 16:00 Temperature 97.4 F L Pulse Rate 101 H 103 H 92 H Respiratory Rate 22 22 20 Blood Pressure 151/82 H 166/73 H 160/86 H Pulse Oximetry 93 L 93 L 92 L 08/13/18 20:00 08/13/18 20:39 08/14/18 00:00 Temperature 98.6 F 98.3 F Pulse Rate 107 H 99 H Respiratory Rate 27 H 19 Blood Pressure 181/93 H 165/89 H Pulse Oximetry 95 93 L 93 L 08/14/18 04:00 Temperature 98.6 F Pulse Rate 101 H Respiratory Rate 15 Blood Pressure 134/91 H Pulse Oximetry 94 L Intake & Output 08/13/18 08/14/18 08/14/18 18:59 06:59 18:59 Intake Total 3440 / 3440 1000 / 1000 Output Total 1949 1200 / 1200 Balance 1490 / 1490 -200 / -200 Weight 121 kg Intake: IV 1999 1000 / 1000 NS Inj 1,000 ML @ 100 mls/hr IV 1999 1000 / 1000 .CONT .Q10H [facility] Rx#:[id number] Oral 1440 / 1440 Output: Urine 1949 1200 / 1200 Other: # Bowel Movements 0 Narrative: awaek alert vff face sym nl speech 5/5 t/o Objective Laboratory Results - last 24 hr 08/10/18 08/13/18 08/13/18 09:24 08:26 11:30 WBC RBC Hgb Hct MCV MCH MCHC RDW Plt Count MPV Neut % (Auto) Lymph % (Auto) [place] % (Auto) Eos % (Auto) Baso % (Auto) Neut # (Auto) Lymph # (Auto) [place] # (Auto) Eos # (Auto) Baso # (Auto) WBC Differential Differential Comment Sodium Potassium Chloride Carbon Dioxide Anion Gap BUN Creatinine Estimated GFR POC Glucose 146 H 124 H Random Glucose Calcium Beta-2-GPI IgG Ab <9 Beta-2-GPI IgA Ab <9 Beta-2-GPI IgM Ab <9 Phosphatidylserine IgG Less than 10.0 Phosphatidylserine IgA Less than 20.0 Phosphatidylserine IgM Less than 25.0 MTHFR Mutation Detect 08/13/18 08/13/18 08/13/18 13:10 17:05 21:09 WBC RBC Hgb Hct MCV MCH MCHC RDW Plt Count MPV Neut % (Auto) Lymph % (Auto) [place] % (Auto) Eos % (Auto) Baso % (Auto) Neut # (Auto) Lymph # (Auto) [place] # (Auto) Eos # (Auto) Baso # (Auto) WBC Differential Differential Comment Sodium Potassium 3.5 Chloride Carbon Dioxide Anion Gap BUN Creatinine Estimated GFR POC Glucose 115 H 116 H Random Glucose Calcium Beta-2-GPI IgG Ab Beta-2-GPI IgA Ab Beta-2-GPI IgM Ab Phosphatidylserine IgG Phosphatidylserine IgA Phosphatidylserine IgM MTHFR Mutation Detect 08/14/18 08/14/18 08/14/18 02:16 06:51 06:51 WBC 10.1 RBC 5.14 Hgb 15.4 Hct 44.0 MCV 85.6 MCH 29.9 MCHC 35.0 RDW 13.2 Plt Count 231 MPV 9.2 Neut % (Auto) 70.0 Lymph % (Auto) 13.6 [place] % (Auto) 11.6 H Eos % (Auto) 4.1 H Baso % (Auto) 0.7 Neut # (Auto) 7.1 Lymph # (Auto) 1.4 [place] # (Auto) 1.2 H Eos # (Auto) 0.4 Baso # (Auto) 0.1 WBC Differential . Differential Comment Auto diff final Sodium 141 Potassium 3.3 L Chloride 105 Carbon Dioxide 26.6 Anion Gap 9 BUN 13 Creatinine 0.93 Estimated GFR 87 L POC Glucose 117 H Random Glucose 119 H Calcium 8.4 L Beta-2-GPI IgG Ab Beta-2-GPI IgA Ab Beta-2-GPI IgM Ab Phosphatidylserine IgG Phosphatidylserine IgA Phosphatidylserine IgM MTHFR Mutation Detect Review/Management - Review/Management Plan: Probable small strokes. Exam stable. Dr Serrano considering LP. He will resume care tomorrow 08/14/18 hyopercoag so far neg aurelia neg mraav nl holter neg plan is asa and i would like him to get loop reocrder placed then can be dced after that when bp ok we will fu an o/p mri in a few months no LP i dw dr ross case and we both feel that he is more c/w cva and not MS
[2018-08-14] MEDS: Aspirin 325 MG Tablet PO SCH (08:46)
[2018-08-15] MEDS: Sod Chloride 0.9% Inj 1,000 ML IV.CONT SCH ×2 (03:26→05:57)
[2018-08-15] MEDS: Insulin NovoLOG Aspart Correctional Sugar Inj SQ SCH ×5 (03:26→20:36)
[2018-08-15 03:50] LABS: Activated Protein C Resistance 4.7 ratio (> OR = 2.1)
[2018-08-15] MEDS: hydrALAZINE HCl Inj 20 MG/ML Vial IV.PUSH PRN ×2 (07:43→17:40)
[2018-08-15] MEDS: NIFEdipine 10 MG Capsule PO SCH (08:30)
--- NOTE | 2018-08-15 08:35 | P.PNIM ---
Subjective Interval history: in no acute distress. looks comfortable. denies pain. BP trend noted. d/w the RN and no acute issues over night. Physical Exam Vital signs: Last Vital Signs Temp 98.8 F 08/14/18 20:00 Pulse 72 08/15/18 05:45 Resp 0 L 08/15/18 05:45 BP 171/99 H 08/15/18 05:45 Pulse Ox 96 08/15/18 05:45 Intake & Output 08/13/18 08/14/18 08/15/18 08/16/18 06:59 06:59 06:59 06:59 Intake Total 4625 / 4625 4440 / 4440 5097 / 5097 Output Total 4000 / 4000 3150 / 3150 3200 / 3200 Balance 625 / 625 1290 / 1290 1897 / 1897 Weight 122.3 kg 121 kg 121.8 kg Constitutional no acute distress Routine Respiratory Exam Present CTA bilaterally Routine Cardiovascular Exam Present RRR Routine Abdominal Exam Present soft Routine Extremities Exam Comments: no pedal edema. Routine Neurological Exam Present alert and oriented X3 Results Labs CBC & Chem 7: 08/14/18 06:51 08/14/18 06:51 Procedures Procedures: AYSHA 08-11 Assessment and Plan Plan acute encephalopathy-resolved CVA - s/p AYSHA; negative -MRI neck negative - continue with BP control -neurology follow- up appreciated; continue aspirin-will consult cardiology for loop recorder placement prior to discharge. -check ipid profile -continue PT Hypertensive urgency -continue Lopressor, Lisinopril ; will start on Procardia XL -Labetalol and hydralazine as needed -continue to monitor the BP and adjust as needed Hypokalemia hypomagnesemia Repleted per electrolyte protocol -- Strict I/Os Diabetes mellitus Obesity Nausea and vomiting-resolved Ketonuria -continue accu-check with SSI -diabetes education Leukocytosis-resolved SIRS cultures negative UA/CXR negative. stopped antibiotics and continue to monitor. Prophylaxis: GI Prophylaxis Famotidine DVT Prophylaxis -- SCDs heparin 5000 units twice daily PT evaluation and treatment transfer to floor today. d/w the RN. Discharge Planning: dc after loop recorder placement- and when BP is better controlled. Progress Note: Quality VTE Deep Vein Thrombosis/Pulmonary Embolism Present on Admission: Yes
[2018-08-15] MEDS: Senna/Docusate Sodium 8.6/50 MG Tablet PO SCH ×2 (09:00→20:31)
[2018-08-15] MEDS: Aspirin 325 MG Tablet PO SCH (09:00)
[2018-08-15] MEDS: Famotidine PF Inj 20 MG/2 ML Vial IV.PUSH SCH ×2 (09:00→20:31)
[2018-08-15] MEDS: Lisinopril 20 MG Tablet PO SCH ×2 (09:00→20:31)
[2018-08-15] MEDS: Metoprolol Tartrate 50 MG Tablet PO SCH ×2 (09:00→20:31)
[2018-08-15 12:10] LABS: Factor V Leiden Mutation Negative (Negative); Protein C Antigen 78 % (70-150)
--- NOTE | 2018-08-15 19:24 | P.CONCA ---
History of Present Illness Service: Cardiology Consult date: 08/15/18 Requesting Physician: Reginald Hinson Reason for Consult: Electrophysiology Primary Care Provider: No Primary Care Physician Chief Complaint: Nausea and Vomiting/ Blurry vision History of Present Illness: ELECTROPHYSIOLOGY CONSULTATION This is a 48-year-old male who was admitted on 08/07/18 with complaints of having diarrhea, blurry vision, nausea and vomiting. On arrival to the Emergency department his blood pressure was over 200 systolic. Per the Emergency Department physician, the patient has a history of non-compliance and poorly controlled diabetes. He is currently being evaluated by Dr. Alen Hinson [employer]. We have been consulted for evaluation of possible loop monitor placement. He currently denies any CP, pressure, palpitation, dizziness, edema or shortness of breath. Review of Systems All other systems reviewed negative except as stated in HPI [facility] - History History Provided By: Patient - Medical History Medical History: Medical History (Last Reviewed 08/09/18 @ 08:00 by Brian Neal) Patient denies medical problems - Surgical History Surgical History: Surgical History (Last Reviewed 08/09/18 @ 08:00 by Brian Neal) No history of previous surgery (Acute) - Tobacco History Second Hand Smoke Exposure: No Tobacco Use In Past 30 Days: No Smoking Status: Never smoker - Alcohol History How Often Do You Have a Drink Containing Alcohol: Never - Substance Use History Substance History: No History of Abuse - Travel History History of Recent Travel: No Recent Travel in the [facility] Within the Last 8 Weeks: No - Immunization History Tetanus Immunization: Never Vaccinated Hx Influenza Vaccine This Season: No Medications and Allergies Allergies Allergy/AdvReac Type Severity Reaction Status Date / Time No Known Allergies Allergy Verified 08/07/18 09:59 Home Medications Medication Instructions Recorded Confirmed Type No Known Home Medications 08/07/18 08/07/18 History Active Medications: Active Medications Acetaminophen (Tylenol) 650 mg PO Q6H PRN PRN Reason: PAIN 1-10 AND/OR FEVER >101F Al Hydroxide/Mg Hydroxide (Milk Of Magncriselda Liq) 30 ml PO Q12H PRN PRN Reason: Mild Constipation Albuterol (Duoneb Neb (Prn)) 1 ampul NEB Q2HR NEB PRN PRN Reason: WHEEZING Aspirin (Aspirin) 325 mg PO DAILY [facility] Last Admin: 08/15/18 09:00 Dose: 325 mg Bisacodyl (Dulcolax Supp) 10 mg RECTAL DAILY PRN PRN Reason: SEVERE CONSITIPATION Dextrose (D50w Vial) 50 ml IV.PUSH UNSCH PRN PRN Reason: PER HYPOGLYCEMIA PROTOCOL Enalaprilat (Vasotec Inj) 2.5 mg IV.PUSH Q6H PRN PRN Reason: SBP>160, DBP>90 Last Admin: 08/15/18 06:10 Dose: 2.5 mg Famotidine (Pepcid Pf Inj) 20 mg IV.PUSH Q12HR [facility] Last Admin: 08/15/18 09:00 Dose: 20 mg Glucagon (Glucagon Inj) 1 mg OTHER PRN PRN PRN Reason: for Hypoglycemia Protocol Hydralazine HCl (Apresoline Inj) 20 mg IV.PUSH Q4H PRN PRN Reason: HYPERTENSION Last Admin: 08/15/18 17:40 Dose: 20 mg Magnesium Sulfate 4 gm/ Sodium (Chloride) 100 mls @ 50 mls/hr IV.SIG UNSCH PRN PRN Reason: For Magnesium 0.9 - 1.1 mg/dL Magnesium Sulfate 2 gm/ Sodium (Chloride) 100 mls @ 50 mls/hr IV.SIG UNSCH PRN PRN Reason: For Magnesium 1.2 - 1.6 mg/dL Potassium Chloride (Kcl 40 Meq Premix Inj) 40 meq in 100 mls @ 25 mls/hr IV.SIG Q2H PRN PRN Reason: For Potassium 2.8 - 3.2 mEq/L Potassium Chloride (Kcl 20 Meq Premix Inj) 20 meq in 100 mls @ 50 mls/hr IV.SIG Q2H PRN PRN Reason: For Potassium 3.3 - 3.5 mEq/L Last Infusion: 08/12/18 10:34 Dose: Infused Potassium Chloride (Kcl 40 Meq Premix Inj) 40 meq in 100 mls @ 25 mls/hr IV.SIG UNSCH PRN PRN Reason: For Potassium 3.3 - 3.5 mEq/L Potassium Chloride (Kcl 20 Meq Premix Inj) 20 meq in 100 mls @ 50 mls/hr IV.SIG Q2H PRN PRN Reason: For Potassium 2.8 - 3.2 mEq/L Last Infusion: 08/11/18 14:13 Dose: Infused Potassium Phosphate 30 mmol/ (Sodium Chloride) 260 mls @ 42 mls/hr IV.SIG UNSCH PRN PRN Reason: SEE LABEL COMMENTS Sodium Phosphate 30 mmol/ (Sodium Chloride) 260 mls @ 42 mls/hr IV.SIG UNSCH PRN PRN Reason: For Phosphorus < 2.5 mg/dL Nicardipine HCl 25 mg/ Sodium (Chloride) 250 mls @ 50 mls/hr IV.CONT TITRATE [facility]; Protocol Last Titration: 08/08/18 21:51 Dose: Infused Insulin Aspart (Novolog Insulin Correctional Sugar Inj) 0 unit SQ ACHS AND 3AM [facility]; Protocol Last Admin: 08/15/18 17:34 Dose: Not Given Lactulose (Lactulose Liq) 30 ml PO DAILY PRN PRN Reason: SEVERE CONSITIPATION Lisinopril (Prinivil) 20 mg PO BID [facility] Last Admin: 08/15/18 09:00 Dose: 20 mg Magnesium Oxide (Mag-Ox) 800 mg PO UNSCH PRN PRN Reason: For Magnesium 1.2 - 1.6 mg/dL Metoprolol Tartrate (Lopressor) 50 mg PO BID [facility] Last Admin: 08/15/18 09:00 Dose: 50 mg Nifedipine (Procardia Xl) 60 mg PO DAILY [facility] Last Admin: 08/15/18 12:45 Dose: Not Given Ondansetron HCl (Zofran Inj) 4 mg IV.PUSH Q6H PRN PRN Reason: NAUSEA OR VOMITING Potassium Bicarb/Potassium Chloride (K-Lyte Cl Eff) 50 meq PO UNSCH PRN PRN Reason: For Potassium 3.3 - 3.5 mEq/L Last Admin: 08/14/18 08:22 Dose: 50 meq Potassium Phosphate (K-Phos Original) 2,000 mg PO UNSCH PRN PRN Reason: SEE LABEL COMMENTS Potassium Phosphate (K-Phos Original) 2,000 mg PO Q4H PRN PRN Reason: Phosphorus Less Than 2.5 mg/dL Senna/Docusate Sodium (Sobeida-Colace) 1 tab PO BID [facility] Last Admin: 08/15/18 09:00 Dose: Not Given Sennosides (Senokot) 17.2 mg PO Q12H PRN PRN Reason: Moderate Constipation Sodium Chloride (Ns Flush) 2 ml IV.FLUSH BID [facility] Last Admin: 08/15/18 09:00 Dose: 2 ml Sodium Chloride (Ns Flush) 2 ml IV.FLUSH PRN PRN PRN Reason: FLUSH AFTER USING IV ACCESS Exam Vital signs: Vital Signs 08/14/18 19:58 08/14/18 20:00 08/14/18 20:04 Temperature 98.8 F Pulse Rate 92 H 94 H Respiratory Rate 19 22 Blood Pressure 140/89 140/89 Pulse Oximetry 94 L 92 L 93 L 08/14/18 21:00 08/14/18 22:00 08/14/18 23:00 Temperature Pulse Rate 106 H 90 75 Respiratory Rate 21 20 15 Blood Pressure 157/74 H 155/85 H 161/90 H Pulse Oximetry 93 L 91 L 93 L 08/15/18 00:00 08/15/18 01:00 08/15/18 02:00 Temperature Pulse Rate 75 76 75 Respiratory Rate 14 16 0 L Blood Pressure 151/88 H 162/97 H 171/75 H Pulse Oximetry 93 L 92 L 95 08/15/18 02:03 08/15/18 03:00 08/15/18 03:01 Temperature Pulse Rate 74 76 73 Respiratory Rate 0 L 0 L 0 L Blood Pressure 168/80 H 160/78 H Pulse Oximetry 93 L 92 L 94 L 08/15/18 04:00 08/15/18 04:09 08/15/18 04:10 Temperature Pulse Rate 77 78 78 Respiratory Rate 15 Blood Pressure 183/106 H 179/106 H 158/106 H Pulse Oximetry 89 L 95 93 L 08/15/18 04:30 08/15/18 05:00 08/15/18 05:30 Temperature Pulse Rate 78 75 74 Respiratory Rate 11 L Blood Pressure 167/104 H 165/105 H 181/107 H Pulse Oximetry 93 L 89 L 93 L 08/15/18 05:45 08/15/18 08:00 08/15/18 12:00 Temperature 98.9 F 98.4 F Pulse Rate 72 85 75 Respiratory Rate 0 L 22 14 Blood Pressure 171/99 H 164/92 H 140/88 Pulse Oximetry 96 92 L 94 L 08/15/18 16:00 Temperature 98.1 F Pulse Rate 85 Respiratory Rate 23 Blood Pressure 153/99 H Pulse Oximetry 95 Intake & Output 08/15/18 08/15/18 08/16/18 06:59 18:59 06:59 Intake Total 1350 / 1350 2019 Output Total 1600 / 1600 1600 / 1600 Balance -250 / -250 420 / 420 Weight 121.8 kg Intake: IV 1000 / 1000 820 / 820 NS Inj 1,000 ML @ 100 mls/hr IV 1000 / 1000 820 / 820 .CONT .Q10H [facility] Rx#:[id number] Oral 350 / 350 1200 / 1200 Output: Urine 1600 / 1600 1600 / 1600 Other: Date of Last Bowel Movement 08/14/18 08/15/18 # Bowel Movements 1 - Constitutional no acute distress - Routine HEENT Exam Head: Present: normocephalic Eye: Present: PERRL ENT: Present: mucous membranes moist - Routine Neck Exam Present: full ROM - Routine Respiratory Exam Present: CTA bilaterally - Routine Cardiovascular Exam Present: S1, S2. Absent: murmur, gallop, rubs - Routine Abdominal Exam Present: normoactive bowel sounds - Routine Extremities Exam Present: full ROM, pulses intact, normal capillary refill. Absent: cyanosis, clubbing, edema - Routine Skin Exam Present: intact - Routine Neurological Exam Present: oriented X3 Results 08/14/18 06:51 08/14/18 06:51 CBC 08/14/18 Range/Units 06:51 WBC 10.1 (4.0-11.0) th/mm3 RBC 5.14 (4.50-5.90) mil/mm3 Hgb 15.4 (13.0-17.0) gm/dL Hct 44.0 (39.0-51.0) % Plt Count 231 (150-450) th/mm3 Neut # (Auto) 7.1 (1.8-7.7) th/mm3 Lymph # (Auto) 1.4 (1.0-4.8) th/mm3 [place] # (Auto) 1.2 H (0.0-0.9) th/mm3 Eos # (Auto) 0.4 (0.0-0.4) th/mm3 Baso # (Auto) 0.1 (0.0-0.2) th/mm3 Comprehensive Metabolic Panel 08/14/18 Range/Units 06:51 Sodium 141 (136-145) meq/L Potassium 3.3 L (3.5-5.1) meq/L Chloride 105 (98-107) meq/L Carbon Dioxide 26.6 (21.0-32.0) meq/L BUN 13 (7-18) mg/dL Creatinine 0.93 (0.60-1.30) mg/dL Calcium 8.4 L (8.5-10.1) mg/dL Intake and Output 08/15/18 08/15/18 08/15/18 06:59 14:59 22:59 Intake Total 1350 / 1350 820 / 820 1200 / 1200 Output Total 1600 / 1600 1600 / 1600 Balance -250 / -250 820 / 820 -400 / -400 Intake: IV 1000 / 1000 820 / 820 NS Inj 1,000 ML @ 100 mls/hr IV 1000 / 1000 820 / 820 .CONT .Q10H [facility] Rx#:[id number] Oral 350 / 350 1200 / 1200 Output: Urine 1600 / 1600 1600 / 1600 Other: Date of Last Bowel Movement 08/14/18 08/14/18 08/15/18 # Bowel Movements 1 Weight 121.8 kg Assessment and Plan - Assessment (1) CVA (cerebral vascular accident) Code(s): I63.9 - Cerebral infarction, unspecified Status: Acute - Plan Patient currently stable from cardiac standpoint. His telemetry shows SR, no evidence of AF. We recommend 30 day cardiac event monitoring to evaluate for atrial fibrillation as the cause of his TIA. The patient was seen and evaluated by Dr. Wills who participated in care, management and decision making. - Attending Attestation Patient seen and examined. I reviewed and agree with the evaluation and plan as presented. Proceed with 30 day event monitoring to evaluate for atrial fibrillation. OK to discharge home once event monitor placed.
[2018-08-16] MEDS: Insulin NovoLOG Aspart Correctional Sugar Inj SQ SCH ×5 (04:00→21:00)
[2018-08-16 07:53] LABS: Chol/HDL Ratio 4.76 Ratio; HDL Cholesterol 27.7 mg/dL (40.0-60.0)
[2018-08-16] MEDS: Aspirin 325 MG Tablet PO SCH (09:39)
[2018-08-16] MEDS: Metoprolol Tartrate 50 MG Tablet PO SCH ×2 (09:39→21:50)
[2018-08-16] MEDS: Senna/Docusate Sodium 8.6/50 MG Tablet PO SCH ×2 (09:41→21:50)
[2018-08-16] MEDS: Lisinopril 20 MG Tablet PO SCH ×2 (09:55→21:50)
[2018-08-16] MEDS: Famotidine PF Inj 20 MG/2 ML Vial IV.PUSH SCH (09:56)
--- NOTE | 2018-08-16 10:20 | P.PNCA ---
Subjective Interval history: Patient denies any CP, pressure, palpitations, dizziness, edema or SOB. Patient states that his vision is slowly improving. Medications and Allergies Allergies Allergy/AdvReac Type Severity Reaction Status Date / Time No Known Allergies Allergy Verified 08/07/18 09:59 Home Medications Medication Instructions Recorded Confirmed Type No Known Home Medications 08/07/18 08/07/18 History Active Medications: Active Medications Acetaminophen (Tylenol) 650 mg PO Q6H PRN PRN Reason: PAIN 1-10 AND/OR FEVER >101F Al Hydroxide/Mg Hydroxide (Milk Of Shruti Liq) 30 ml PO Q12H PRN PRN Reason: Mild Constipation Albuterol (Duoneb Neb (Prn)) 1 ampul NEB Q2HR NEB PRN PRN Reason: WHEEZING Aspirin (Aspirin) 325 mg PO DAILY [facility] Last Admin: 08/16/18 09:39 Dose: 325 mg Bisacodyl (Dulcolax Supp) 10 mg RECTAL DAILY PRN PRN Reason: SEVERE CONSITIPATION Dextrose (D50w Vial) 50 ml IV.PUSH UNSCH PRN PRN Reason: PER HYPOGLYCEMIA PROTOCOL Enalaprilat (Vasotec Inj) 2.5 mg IV.PUSH Q6H PRN PRN Reason: SBP>160, DBP>90 Last Admin: 08/16/18 04:00 Dose: 2.5 mg Famotidine (Pepcid Pf Inj) 20 mg IV.PUSH Q12HR [facility] Last Admin: 08/16/18 09:56 Dose: 20 mg Glucagon (Glucagon Inj) 1 mg OTHER PRN PRN PRN Reason: for Hypoglycemia Protocol Hydralazine HCl (Apresoline Inj) 20 mg IV.PUSH Q4H PRN PRN Reason: HYPERTENSION Last Admin: 08/15/18 17:40 Dose: 20 mg Magnesium Sulfate 4 gm/ Sodium (Chloride) 100 mls @ 50 mls/hr IV.SIG UNSCH PRN PRN Reason: For Magnesium 0.9 - 1.1 mg/dL Magnesium Sulfate 2 gm/ Sodium (Chloride) 100 mls @ 50 mls/hr IV.SIG UNSCH PRN PRN Reason: For Magnesium 1.2 - 1.6 mg/dL Potassium Chloride (Kcl 40 Meq Premix Inj) 40 meq in 100 mls @ 25 mls/hr IV.SIG Q2H PRN PRN Reason: For Potassium 2.8 - 3.2 mEq/L Potassium Chloride (Kcl 20 Meq Premix Inj) 20 meq in 100 mls @ 50 mls/hr IV.SIG Q2H PRN PRN Reason: For Potassium 3.3 - 3.5 mEq/L Last Infusion: 08/12/18 10:34 Dose: Infused Potassium Chloride (Kcl 40 Meq Premix Inj) 40 meq in 100 mls @ 25 mls/hr IV.SIG UNSCH PRN PRN Reason: For Potassium 3.3 - 3.5 mEq/L Potassium Chloride (Kcl 20 Meq Premix Inj) 20 meq in 100 mls @ 50 mls/hr IV.SIG Q2H PRN PRN Reason: For Potassium 2.8 - 3.2 mEq/L Last Infusion: 08/11/18 14:13 Dose: Infused Potassium Phosphate 30 mmol/ (Sodium Chloride) 260 mls @ 42 mls/hr IV.SIG UNSCH PRN PRN Reason: SEE LABEL COMMENTS Sodium Phosphate 30 mmol/ (Sodium Chloride) 260 mls @ 42 mls/hr IV.SIG UNSCH PRN PRN Reason: For Phosphorus < 2.5 mg/dL Nicardipine HCl 25 mg/ Sodium (Chloride) 250 mls @ 50 mls/hr IV.CONT TITRATE [facility]; Protocol Last Titration: 08/08/18 21:51 Dose: Infused Insulin Aspart (Novolog Insulin Correctional Sugar Inj) 0 unit SQ ACHS AND 3AM [facility]; Protocol Last Admin: 08/16/18 09:47 Dose: Not Given Lactulose (Lactulose Liq) 30 ml PO DAILY PRN PRN Reason: SEVERE CONSITIPATION Lisinopril (Prinivil) 20 mg PO BID [facility] Last Admin: 08/16/18 09:55 Dose: 20 mg Magnesium Oxide (Mag-Ox) 800 mg PO UNSCH PRN PRN Reason: For Magnesium 1.2 - 1.6 mg/dL Metoprolol Tartrate (Lopressor) 50 mg PO BID [facility] Last Admin: 08/16/18 09:39 Dose: 50 mg Nifedipine (Procardia Xl) 60 mg PO DAILY [facility] Last Admin: 08/16/18 09:40 Dose: 60 mg Ondansetron HCl (Zofran Inj) 4 mg IV.PUSH Q6H PRN PRN Reason: NAUSEA OR VOMITING Potassium Bicarb/Potassium Chloride (K-Lyte Cl Eff) 50 meq PO UNSCH PRN PRN Reason: For Potassium 3.3 - 3.5 mEq/L Last Admin: 08/14/18 08:22 Dose: 50 meq Potassium Phosphate (K-Phos Original) 2,000 mg PO UNSCH PRN PRN Reason: SEE LABEL COMMENTS Potassium Phosphate (K-Phos Original) 2,000 mg PO Q4H PRN PRN Reason: Phosphorus Less Than 2.5 mg/dL Senna/Docusate Sodium (Sobeida-Colace) 1 tab PO BID [facility] Last Admin: 08/16/18 09:41 Dose: Not Given Sennosides (Senokot) 17.2 mg PO Q12H PRN PRN Reason: Moderate Constipation Sodium Chloride (Ns Flush) 2 ml IV.FLUSH BID [facility] Last Admin: 08/16/18 09:56 Dose: 2 ml Sodium Chloride (Ns Flush) 2 ml IV.FLUSH PRN PRN PRN Reason: FLUSH AFTER USING IV ACCESS Physical Exam Vital signs: Vital Signs 08/15/18 12:00 08/15/18 16:00 08/15/18 20:00 Temperature 98.4 F 98.1 F 98 F Pulse Rate 75 85 104 H Respiratory Rate 14 23 14 Blood Pressure 140/88 153/99 H 138/78 Pulse Oximetry 94 L 95 91 L 08/15/18 22:00 08/16/18 00:00 08/16/18 00:35 Temperature 98.4 F Pulse Rate 97 H 87 95 H Respiratory Rate 18 Blood Pressure 157/88 H Pulse Oximetry 96 08/16/18 03:45 08/16/18 04:48 08/16/18 09:38 Temperature 97.8 F Pulse Rate 93 H 84 Respiratory Rate 20 Blood Pressure 166/100 H 172/98 H Pulse Oximetry 95 08/16/18 09:39 Temperature Pulse Rate 110 H Respiratory Rate Blood Pressure Pulse Oximetry Intake & Output 08/15/18 08/16/18 08/16/18 18:59 06:59 18:59 Intake Total 2019 Output Total 1600 / 1600 975 / 975 Balance 420 / 420 -975 / -975 Weight 121.8 kg Intake: IV 820 / 820 NS Inj 1,000 ML @ 100 mls/hr IV 820 / 820 .CONT .Q10H [facility] Rx#:[id number] Oral 1200 / 1200 Output: Urine 1600 / 1600 975 / 975 Other: Date of Last Bowel Movement 08/15/18 08/15/18 08/15/18 # Bowel Movements 1 - Constitutional no acute distress - Routine HEENT Exam Head: Present: normocephalic Eye: Present: PERRL ENT: Present: mucous membranes moist - Routine Neck Exam Present: full ROM - Routine Respiratory Exam Present: CTA bilaterally - Routine Cardiovascular Exam Present: S1, S2. Absent: murmur, gallop, rubs - Routine Abdominal Exam Present: normoactive bowel sounds - Routine Extremities Exam Present: full ROM, pulses intact, normal capillary refill. Absent: cyanosis, clubbing, edema - Routine Skin Exam Present: intact - Routine Neurological Exam Present: oriented X3 - Detailed Neurological Exam: Coma Scale Eye Opening: Spontaneous Verbal Response: Oriented Motor Response: [place] commands [place] Coma Scale Total: 15 - Routine Psychiatric Exam Present: normal affect Results 08/14/18 06:51 08/14/18 06:51 Lipids 08/16/18 Range/Units 06:37 Triglycerides 103 (42-150) mg/dL Cholesterol 132 (120-200) mg/dL HDL Cholesterol 27.7 L (40.0-60.0) mg/dL Cholesterol/HDL Ratio 4.76 Ratio Intake and Output 08/15/18 08/16/18 08/16/18 22:59 06:59 14:59 Intake Total 1200 / 1200 Output Total 1600 / 1600 975 / 975 Balance -400 / -400 -975 / -975 Intake: Oral 1200 / 1200 Output: Urine 1600 / 1600 975 / 975 Other: Date of Last Bowel Movement 08/15/18 08/15/18 # Bowel Movements 1 Weight 121.8 kg Assessment and Plan - Assessment (1) CVA (cerebral vascular accident) Code(s): I63.9 - Cerebral infarction, unspecified Status: Acute - Plan Patients continues to remain stable from a cardiology standpoint. We will proceed with the Loop monitor placement today at 2:30 to monitor for atrial fibrillation. Patient NPO now. Have consent signed and placed on chart. Discussed procedure with patient, he verbalized understanding and wishes to proceed. We will continue to monitor patient during hospitalization. The patient was seen and evaluated by Dr. Wills who participated in care, management and decision making. - Attending Attestation Patient seen and examined. I reviewed and agree with the evaluation and plan as presented. Proceed with loop monitor placement today to monitor for atrial fibrillation. D/w Dr. Serrano.
--- NOTE | 2018-08-16 10:36 | P.PNNEU ---
Subjective Active Medications: Active Medications Acetaminophen (Tylenol) 650 mg PO Q6H PRN PRN Reason: PAIN 1-10 AND/OR FEVER >101F Al Hydroxide/Mg Hydroxide (Milk Of Shruti Licatarino) 30 ml PO Q12H PRN PRN Reason: Mild Constipation Albuterol (Duoneb Neb (Prn)) 1 ampul NEB Q2HR NEB PRN PRN Reason: WHEEZING Aspirin (Aspirin) 325 mg PO DAILY FABIOLA Last Admin: 08/16/18 09:39 Dose: 325 mg Bisacodyl (Dulcolax Supp) 10 mg RECTAL DAILY PRN PRN Reason: SEVERE CONSITIPATION Dextrose (D50w Vial) 50 ml IV.PUSH UNSCH PRN PRN Reason: PER HYPOGLYCEMIA PROTOCOL Enalaprilat (Vasotec Inj) 2.5 mg IV.PUSH Q6H PRN PRN Reason: SBP>160, DBP>90 Last Admin: 08/16/18 04:00 Dose: 2.5 mg Famotidine (Pepcid Pf Inj) 20 mg IV.PUSH Q12HR FABIOLA Last Admin: 08/16/18 09:56 Dose: 20 mg Glucagon (Glucagon Inj) 1 mg OTHER PRN PRN PRN Reason: for Hypoglycemia Protocol Hydralazine HCl (Apresoline Inj) 20 mg IV.PUSH Q4H PRN PRN Reason: HYPERTENSION Last Admin: 08/15/18 17:40 Dose: 20 mg Magnesium Sulfate 4 gm/ Sodium (Chloride) 100 mls @ 50 mls/hr IV.SIG UNSCH PRN PRN Reason: For Magnesium 0.9 - 1.1 mg/dL Magnesium Sulfate 2 gm/ Sodium (Chloride) 100 mls @ 50 mls/hr IV.SIG UNSCH PRN PRN Reason: For Magnesium 1.2 - 1.6 mg/dL Potassium Chloride (Kcl 40 Meq Premix Inj) 40 meq in 100 mls @ 25 mls/hr IV.SIG Q2H PRN PRN Reason: For Potassium 2.8 - 3.2 mEq/L Potassium Chloride (Kcl 20 Meq Premix Inj) 20 meq in 100 mls @ 50 mls/hr IV.SIG Q2H PRN PRN Reason: For Potassium 3.3 - 3.5 mEq/L Last Infusion: 08/12/18 10:34 Dose: Infused Potassium Chloride (Kcl 40 Meq Premix Inj) 40 meq in 100 mls @ 25 mls/hr IV.SIG UNSCH PRN PRN Reason: For Potassium 3.3 - 3.5 mEq/L Potassium Chloride (Kcl 20 Meq Premix Inj) 20 meq in 100 mls @ 50 mls/hr IV.SIG Q2H PRN PRN Reason: For Potassium 2.8 - 3.2 mEq/L Last Infusion: 08/11/18 14:13 Dose: Infused Potassium Phosphate 30 mmol/ (Sodium Chloride) 260 mls @ 42 mls/hr IV.SIG UNSCH PRN PRN Reason: SEE LABEL COMMENTS Sodium Phosphate 30 mmol/ (Sodium Chloride) 260 mls @ 42 mls/hr IV.SIG UNSCH PRN PRN Reason: For Phosphorus < 2.5 mg/dL Nicardipine HCl 25 mg/ Sodium (Chloride) 250 mls @ 50 mls/hr IV.CONT TITRATE FBAIOLA; Protocol Last Titration: 08/08/18 21:51 Dose: Infused Insulin Aspart (Novolog Insulin Correctional Sugar Inj) 0 unit SQ ACHS AND 3AM FABIOLA; Protocol Last Admin: 08/16/18 09:47 Dose: Not Given Lactulose (Lactulose Liq) 30 ml PO DAILY PRN PRN Reason: SEVERE CONSITIPATION Lisinopril (Prinivil) 20 mg PO BID [facility] Last Admin: 08/16/18 09:55 Dose: 20 mg Magnesium Oxide (Mag-Ox) 800 mg PO UNSCH PRN PRN Reason: For Magnesium 1.2 - 1.6 mg/dL Metoprolol Tartrate (Lopressor) 50 mg PO BID [facility] Last Admin: 08/16/18 09:39 Dose: 50 mg Nifedipine (Procardia Xl) 60 mg PO DAILY [facility] Last Admin: 08/16/18 09:40 Dose: 60 mg Ondansetron HCl (Zofran Inj) 4 mg IV.PUSH Q6H PRN PRN Reason: NAUSEA OR VOMITING Potassium Bicarb/Potassium Chloride (K-Lyte Cl Eff) 50 meq PO UNSCH PRN PRN Reason: For Potassium 3.3 - 3.5 mEq/L Last Admin: 08/14/18 08:22 Dose: 50 meq Potassium Phosphate (K-Phos Original) 2,000 mg PO UNSCH PRN PRN Reason: SEE LABEL COMMENTS Potassium Phosphate (K-Phos Original) 2,000 mg PO Q4H PRN PRN Reason: Phosphorus Less Than 2.5 mg/dL Senna/Docusate Sodium (Sobeida-Colace) 1 tab PO BID [facility] Last Admin: 08/16/18 09:41 Dose: Not Given Sennosides (Senokot) 17.2 mg PO Q12H PRN PRN Reason: Moderate Constipation Sodium Chloride (Ns Flush) 2 ml IV.FLUSH BID [facility] Last Admin: 08/16/18 09:56 Dose: 2 ml Sodium Chloride (Ns Flush) 2 ml IV.FLUSH PRN PRN PRN Reason: FLUSH AFTER USING IV ACCESS Allergies/Adverse Reactions: Allergies Allergy/AdvReac Type Severity Reaction Status Date / Time No Known Allergies Allergy Verified 08/07/18 09:59 Physical Exam Vital signs: Vital Signs 08/15/18 12:00 08/15/18 16:00 08/15/18 20:00 Temperature 98.4 F 98.1 F 98 F Pulse Rate 75 85 104 H Respiratory Rate 14 23 14 Blood Pressure 140/88 153/99 H 138/78 Pulse Oximetry 94 L 95 91 L 08/15/18 22:00 08/16/18 00:00 08/16/18 00:35 Temperature 98.4 F Pulse Rate 97 H 87 95 H Respiratory Rate 18 Blood Pressure 157/88 H Pulse Oximetry 96 08/16/18 03:45 08/16/18 04:48 08/16/18 09:38 Temperature 97.8 F Pulse Rate 93 H 84 Respiratory Rate 20 Blood Pressure 166/100 H 172/98 H Pulse Oximetry 95 08/16/18 09:39 Temperature Pulse Rate 110 H Respiratory Rate Blood Pressure Pulse Oximetry Intake & Output 08/15/18 08/16/18 08/16/18 18:59 06:59 18:59 Intake Total 2019 Output Total 1600 / 1600 975 / 975 Balance 420 / 420 -975 / -975 Weight 121.8 kg Intake: IV 820 / 820 NS Inj 1,000 ML @ 100 mls/hr IV 820 / 820 .CONT .Q10H [facility] Rx#:[id number] Oral 1200 / 1200 Output: Urine 1600 / 1600 975 / 975 Other: Date of Last Bowel Movement 08/15/18 08/15/18 08/15/18 # Bowel Movements 1 Narrative: awake nad nl speech 5/5 t/o Objective Laboratory Results - last 24 hr 08/10/18 08/15/18 08/15/18 09:24 15:10 17:33 Protein C Antigen 78 Protein S Activity 101 Factor V Leiden Mutat Negative Factor V Leiden Interp . Fact V Leiden Review By See below POC Glucose 129 H 95 Triglycerides Cholesterol LDL Cholesterol, Calc HDL Cholesterol Cholesterol/HDL Ratio Anti-Cardiolipin IgG Ab <9.4 Anti-Cardiolipin IgM Ab <9.4 08/15/18 08/16/18 08/16/18 20:29 03:42 06:37 Protein C Antigen Protein S Activity Factor V Leiden Mutat Factor V Leiden Interp Fact V Leiden Review By POC Glucose 176 H 126 H Triglycerides 103 Cholesterol 132 LDL Cholesterol, Calc 84 HDL Cholesterol 27.7 L Cholesterol/HDL Ratio 4.76 Anti-Cardiolipin IgG Ab Anti-Cardiolipin IgM Ab 08/16/18 07:33 Protein C Antigen Protein S Activity Factor V Leiden Mutat Factor V Leiden Interp Fact V Leiden Review By POC Glucose 120 H Triglycerides Cholesterol LDL Cholesterol, Calc HDL Cholesterol Cholesterol/HDL Ratio Anti-Cardiolipin IgG Ab Anti-Cardiolipin IgM Ab Review/Management - Review/Management Plan: Probable small strokes. Exam stable. Dr Serrano considering LP. He will resume care tomorrow 08/14/18 hyopercoag so far neg aurelia neg mraav nl holter neg plan is asa and i would like him to get loop reocrder placed then can be dced after that when bp ok we will fu an o/p mri in a few months no LP i dw dr ross case and we both feel that he is more c/w cva and not MS ------ 08/16/18 stable neuro needs bp to 120/70 i blanca tucker and pt for loop can dc when bp 120/70 for one whole day on asa and statin
[2018-08-16] MEDS ORDERED: fentaNYL Citrate Inj 100 MCG/2 ML Ampul ONE (13:48)
[2018-08-16] MEDS ORDERED: Midazolam Inj 5 MG/ML 1 ML Vial ONE (13:48)
[2018-08-16] MEDS ORDERED: ceFAZolin 2 GM IV; once IV.SIG ONE (14:15)
[2018-08-16] MEDS ORDERED: fentaNYL Citrate Inj 100 MCG/2 ML Ampul IV.PUSH ONE (14:23)
--- NOTE | 2018-08-16 15:18 | MR ---
cc: Archana Wills MD DATE: 08/16/2018 INDICATIONS: CVA; evaluation for atrial fibrillation. PROCEDURE PERFORMED: 1. Placement of a [employer] Confirm-RX MRI compatible loop monitor. 2. Moderate sedation. ACCESS SITE: Left subclavicular area. EQUIPMENT USED: [employer] Confirm RX model [id number] MRI compatible loop monitor; serial #[id number]. MEDICATIONS: Versed IV, fentanyl IV. BLOOD LOSS: Less than 1 mL COMPLICATIONS: None. PROCEDURE IN DETAIL: Left chest was prepped and draped in usual sterile manner. Lidocaine 1% was used for local anesthesia. [employer] Confirm-RX MRI compatible loop monitor was placed without difficulty. R-wave was 1.03 millivolts. DIAGNOSIS: Placement of [employer] Confirm-RX MRI compatible loop monitor. DISPOSITION: We will initiate long-term monitoring of his device. He will see Dr. Serrano for neurology followup. Archana Wills MD [place]/lavonne , 02:32 PM , 02:40 PM [facility]DL[facility]
[2018-08-16] MEDS: hydroCHLOROthiazide 25 MG Tablet PO SCH (16:30)
--- NOTE | 2018-08-16 23:56 | P.PNIM ---
Subjective Interval history: Patient was seen in the morning. Patient is doing well. Ambulating using a walker. No acute concerns. No fever, chills. Physical Exam Vital signs: Last Vital Signs Temp 98.4 F 08/16/18 20:00 Pulse 99 H 08/16/18 20:00 Resp 20 08/16/18 20:00 BP 162/97 H 08/16/18 20:00 Pulse Ox 95 08/16/18 20:00 Intake & Output 08/14/18 08/15/18 08/16/18 08/17/18 06:59 06:59 06:59 06:59 Intake Total 4440 / 4440 5097 / 5097 2019 / 2019 50 / 50 Output Total 3150 / 3150 3200 / 3200 2575 / 2575 650 / 650 Balance 1290 / 1290 1897 / 1897 -555 / -555 -600 / -600 Weight 121 kg 121.8 kg 121.8 kg GENERAL: Alert, NAD. SKIN: Warm and dry. HEAD: Normocephalic. EYES: No scleral icterus. No injection or drainage. NECK: Supple, trachea midline. No JVD or lymphadenopathy. CARDIOVASCULAR: Regular rate and rhythm without murmurs, gallops, or rubs. RESPIRATORY: Breath sounds equal bilaterally. No accessory muscle use. GASTROINTESTINAL: Abdomen soft, non-tender, nondistended. MUSCULOSKELETAL: No cyanosis, or edema. BACK: Nontender without obvious deformity. No CVA tenderness. Results Labs CBC & Chem 7: 08/14/18 06:51 08/14/18 06:51 Procedures Procedures: AYSHA 12-7 Assessment and Plan (1) CVA (cerebral vascular accident): Code(s): I63.9 - Cerebral infarction, unspecified Status: Acute Plan acute encephalopathy-resolved CVA - s/p AYSHA; negative -MRI neck negative - continue with BP control -neurology follow- up appreciated; continue aspirin -s/p loop recorder placement by Cardiology. -continue PT. Patient is walking well with walker. Hypertensive -continue Lopressor 50mg BID, HCTZ 25mg Qday, Lisinopril 20mg BID, Amlodipine 10mg Qday. Hypokalemia hypomagnesemia -Replaced. Resolved. Diabetes mellitus Obesity Nausea and vomiting-resolved Ketonuria -continue accu-check with SSI -diabetes education -Will consider Metformin upon discharge. Full code. Ambulation. Progress Note: Quality VTE Deep Vein Thrombosis/Pulmonary Embolism Present on Admission: Yes _ (1) CVA (cerebral vascular accident) Qualifiers: CVA mechanism: Laterality of affected vessel: Precerebral and cerebral artery:
[2018-08-17] MEDS: Insulin NovoLOG Aspart Correctional Sugar Inj SQ SCH ×5 (03:00→21:00)
[2018-08-17] MEDS: Aspirin 325 MG Tablet PO SCH (09:02)
[2018-08-17] MEDS: hydroCHLOROthiazide 25 MG Tablet PO SCH (09:02)
[2018-08-17] MEDS: Metoprolol Tartrate 50 MG Tablet PO SCH ×2 (09:03→21:40)
[2018-08-17] MEDS: Lisinopril 20 MG Tablet PO SCH ×2 (09:03→21:40)
[2018-08-17] MEDS: Senna/Docusate Sodium 8.6/50 MG Tablet PO SCH ×2 (09:03→21:40)
--- NOTE | 2018-08-17 22:49 | P.PNIM ---
Subjective Interval history: Follow up for probable CVA. Patient is doing well. He can ambulate with a walker but feels somewhat unsteady when he walks on his own. Afebrile. Tolerating diet well. Physical Exam Vital signs: Last Vital Signs Temp 97.9 F 08/17/18 20:00 Pulse 104 H 08/17/18 20:00 Resp 18 08/17/18 20:00 BP 159/103 H 08/17/18 20:00 Pulse Ox 96 08/17/18 20:00 Intake & Output 08/15/18 08/16/18 08/17/18 08/18/18 06:59 06:59 06:59 06:59 Intake Total 5097 / 5097 2019 / 2019 150 / 150 720 / 720 Output Total 3200 / 3200 2575 / 2575 950 / 950 Balance 1897 / 1897 -555 / -555 -800 / -800 720 / 720 Weight 121.8 kg 121.8 kg 120.4 kg GENERAL: Alert, oriented x 3, NAD. SKIN: Warm and dry. HEAD: Normocephalic. EYES: No scleral icterus. No injection or drainage. NECK: Supple, trachea midline. No JVD or lymphadenopathy. CARDIOVASCULAR: Regular rate and rhythm without murmurs, gallops, or rubs. RESPIRATORY: Breath sounds equal bilaterally. No accessory muscle use. GASTROINTESTINAL: Abdomen soft, non-tender, nondistended. MUSCULOSKELETAL: No cyanosis, or edema. BACK: Nontender without obvious deformity. No CVA tenderness. Results Labs CBC & Chem 7: 08/14/18 06:51 08/14/18 06:51 Procedures Procedures: AYSHA 08-11 Assessment and Plan (1) CVA (cerebral vascular accident): Code(s): I63.9 - Cerebral infarction, unspecified Status: Acute Plan acute encephalopathy-resolved CVA - s/p AYSHA; negative -MRI neck negative -neurology follow-up appreciated; continue aspirin -s/p loop recorder placement by Cardiology. -continue PT. Patient is walking well with walker. Hypertensive -continue Lopressor 50mg BID, HCTZ 25mg Qday, Lisinopril 20mg BID, Amlodipine 10mg Qday. -BP is reasonably controlled but diastolic pressure is elevated. Hypokalemia hypomagnesemia -Replaced. Resolved. Diabetes mellitus Obesity Nausea and vomiting-resolved Ketonuria -continue accu-check with SSI -diabetes education -Will consider Metformin upon discharge. Full code. Ambulation. Progress Note: Quality VTE Deep Vein Thrombosis/Pulmonary Embolism Present on Admission: Yes _ (1) CVA (cerebral vascular accident) Qualifiers: CVA mechanism: Precerebral and cerebral artery: Laterality of affected vessel:
[2018-08-18] MEDS: Insulin NovoLOG Aspart Correctional Sugar Inj SQ SCH ×2 (03:00→10:02)
[2018-08-18] MEDS ORDERED: amLODIPine 10 MG Tablet PO SCH (09:00)
[2018-08-18] MEDS: Lisinopril 20 MG Tablet PO SCH (10:08)
[2018-08-18] MEDS: Aspirin 325 MG Tablet PO SCH (10:08)
[2018-08-18] MEDS: hydroCHLOROthiazide 25 MG Tablet PO SCH (10:08)
[2018-08-18] MEDS: Senna/Docusate Sodium 8.6/50 MG Tablet PO SCH (10:08)
[2018-08-18] MEDS: Metoprolol Tartrate 50 MG Tablet PO SCH (10:08)
--- NOTE | 2018-08-18 21:10 | P.DS ---
DS: Providers Date of admission: 08/07/18 16:17 Primary care physician: No Primary Care Physician Consults: 08/08/18 19:27 Consult to Hospitalist Routine Consulting Provider: Violeta Marroquin Reason for Consultation: Admitted for hypertensive crisis uncontrolled diabetes mellitus, now controlled Notified:: Service Spoke with:: Korina Date Notified:: 08/08/18 Time Notified:: 20:02 Ordering Provider: OMAR 08/09/18 14:45 Consult to Neurology Routine Consulting Provider: Farzad Landry Reason for Consultation: slurred speech Notified:: Office Spoke with:: NASIR Date Notified:: 08/09/18 Time Notified:: 15:01 Ordering Provider: HAMILTON 08/10/18 07:04 Consult to Cardiology Routine Consulting Provider: Reginald Hinson Does the patient have a Scallop Shucker who follows them?: No Preferred Employee Wellness/Fitness Coordinator:: Stock Counter Physician Reason for Consultation: aysha cva Notified:: Physician Spoke with:: Date Notified:: 08/10/18 Time Notified:: 07:46 Ordering Provider: SHAQUILLE 08/15/18 08:32 Consult to Cardiology Routine Consulting Provider: Archana Wills Does the patient have a Scallop Shucker who follows them?: No Preferred Employee Wellness/Fitness Coordinator:: Stock Counter Physician Reason for Consultation: please assist with loop recorder placement. Notified:: Service Spoke with:: Kayla Date Notified:: 08/15/18 Time Notified:: 08:40 Ordering Provider: JUMANA DS: Diagnosis Discharge Diagnosis (1) CVA (cerebral vascular accident): Status: Acute DS: Summary acute encephalopathy-resolved CVA - s/p AYSHA; negative -MRI neck negative -neurology follow-up appreciated; continue aspirin -s/p loop recorder placement by Cardiology. -continue PT. Patient is walking well with walker. Hypertensive -continue HCTZ 25mg Qday, Lisinopril 20mg BID, Amlodipine 10mg Qday. -BP is reasonably controlled but diastolic pressure is elevated. Hypokalemia hypomagnesemia -Replaced. Resolved. Diabetes mellitus Obesity Nausea and vomiting-resolved Ketonuria -continue accu-check with SSI -diabetes education -continue Metformin upon discharge. Time Spent with Patient Total time spent providing and/or coordinating discharge services: Less than 30 minutes Quality: VTE Deep Vein Thrombosis/Pulmonary Embolism Present on Admission: Yes Exam Narrative Exam Narrative: GENERAL: Alert, oriented x3, NAD. SKIN: Warm and dry. HEAD: Normocephalic. EYES: No scleral icterus. No injection or drainage. NECK: Supple, trachea midline. No JVD or lymphadenopathy. CARDIOVASCULAR: Regular rate and rhythm without murmurs, gallops, or rubs. RESPIRATORY: Breath sounds equal bilaterally. No accessory muscle use. GASTROINTESTINAL: Abdomen soft, non-tender, nondistended. MUSCULOSKELETAL: No cyanosis, or edema. BACK: Nontender without obvious deformity. No CVA tenderness. Results Procedures completed during hospitalization: AYSHA 08/11/2018 1.) Normal lv size, wall thickness, ef=60% 2.) Left atrial appendage appears normal. 3.) Trace mitral valve regurgitation. 4.) Negative saline contrast bubble study and color dopler evaluation for the presence of atrial or ventricular shunt 5.) Normal appearing throacic aorta. Labs on day of discharge: Labs from last 24 hours 08/18/18 08/17/18 04:00 22:51 POC Glucose 115 H 140 H Impressions ITS Impressions Abdomen/Pelvis CT 08/07/18 00:00 CONCLUSION: 1. Fatty liver. 2. 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 Otherwise negative noncontrast CT of the abdomen and pelvis. Head MRI 08/09/18 00:00 CONCLUSION: 1. 2 small adjacent foci of restricted diffusion in the white matter of the left parietal lobe consistent with acute to subacute areas of infarction. 2. Multiple small chronic infarcts. 3. Atrophy and apparent chronic small vessel ischemic change. Chest X-Ray 08/09/18 04:00 CONCLUSION: Hypoinflation. Clear lungs. Head CT 08/09/18 11:53 CONCLUSION: 1. Stable noncontrast head CT. No acute intracranial abnormality is identified. 2. Stable areas of low density in the periventricular regions bilaterally which could represent atelectasis. . Head/Brain Mag Res Venography 08/10/18 00:00 CONCLUSION: No intracranial venous thrombosis is identified. Neck MRA 08/10/18 00:00 CONCLUSION: Negative MRA of the neck. Percent stenosis is calculated using the diameter of the stenotic region over the diameter of the normal distal internal carotid artery Head MRA 08/10/18 07:04 CONCLUSION: Negative MRA of the brain. Discharge Plan Discharge Disposition Patient Disposition: Discharge Home Discharge Condition Condition: Good Discharge Order Discharge Orders: Discharge Order (Routine); Ordered 08/18/18 Ordered By: Tawanna Kenny Discharge Details Anticipated Discharge Date: 08/18/18 Physicians Team Primary Care Provider: Primary Care Jocelyn Medina Attending Provider: Tawanna Kenny Other Providers: Farzad Landry ; Reginald Hinson ; Archana Wills Rxs /Orders / Referrals /Forms Prescriptions: New aspirin 325 mg Tablet 325 mg PO DAILY Qty: 90 RF: 11 lisinopril 20 mg Tablet 40 mg PO DAILY 30 Days Qty: 60 RF: 11 amlodipine [Norvasc] 10 mg Tablet 10 mg PO DAILY Qty: 30 RF: 11 hydrochlorothiazide 25 mg Tablet 25 mg PO DAILY Qty: 30 RF: 11 metformin 500 mg tablet 500 mg PO BID Qty: 60 RF: 11 atorvastatin [Lipitor] 20 mg tablet 20 mg PO QPM Qty: 90 RF: 3 No Action No Known Home Medications RF: 0 Ambulatory Orders / Order Sets / DME: Walker With Front Wheels (1 each) (Routine) Location: Determined by Patient Ordered By: Tawanna Kenny Referrals: Primary Care Jocelyn Medina [Primary Care Provider] - See Instructions (CALL [phone] AT 8AM THE DAY YOU WOULD LIKE TO BE SEEN [address] [place] [address]) Discharge Instructions Patient Printed Instructions: How to Choose and Use a Walker (GEN), Foot Care for People with Diabetes (DC), Type 2 Diabetes in Adults (DC), Managing Diabetes During Sick Days (DC) Status ED Status: Admitted Patient Discharge Information Discharge Date/Time: 08/18/18 11:40
== END 2018-08-18 11:40 | disposition home or self-care (01) ==
LOC: NEDDLT 09:54 → HIMC 16:17 → N05 08-15 20:54
PROVIDERS: ADMIT Hospitalist; ATTEND Hospitalist
PROC: LOOPREV (2018-08-16 14:30)